=== PATIENT | male | born 1985 | race African-American/Black ===

== ENCOUNTER 2018-09-07 18:27 | Emergency (ER) | END 2018-09-07 19:33 | disposition home or self-care (01) ==

== ENCOUNTER 2018-10-05 01:27 | Emergency (ER) | END 2018-10-05 02:05 | disposition home or self-care (01) ==

== ENCOUNTER 2018-11-05 06:09 | Observation (INO) | payer SELFPAY ==
[~2018-11-05] VITALS: Ht 157.5 cm; Wt 58.9 kg
[~2018-11-05 06:09] MED LIST: LEVE100018 PO; LEVE500S8 PO; MED4DP PO
[2018-11-05] MEDS ORDERED: SOD CHLORIDE 0.9% 1,000 ML IV STA (06:17)
[2018-11-05] MEDS ORDERED: LEVETIRACETAM 1000 MG (PMX) 100 ML IVPB STA (06:17)
--- NOTE | 2018-11-05 06:47 | ERD ---
ER Documentation Chief Complaint Chief Complaint JUAN EPPERSON from home,8 sz lasted 1.5 to 2 mins apart per roommate report,LUZ MEDEIROS This is a 33-year-old male with a past medical history of brain tumor status post craniotomy and surgical resection, seizure disorder on Keppra 1000 mg twice daily who is presenting for multiple seizure episodes this morning. The patient's first seizure began at 2 AM. He has had 8 total episodes since 2 AM, lasting approximately 1.5-2 minutes before resolving. The patient reports frequent seizure episodes, approximately once a week. Typically, after taking Keppra, the patient does not have any subsequent seizures. After the first episode, the patient's roommate gave him a Keppra tablet. However, this morning, the patient's seizures continued. The patient's roommate called the patient's mother, who is reportedly a physician, and was told to bring the patient to the emergency department. The patient's last seizure was approximately 30 minutes prior to arrival to the emergency department. He is currently alert and oriented x4. He does endorse a mild frontal headache, which is typical after his seizures. He denies any photophobia or phonophobia. He denies any blurry or double vision. He denies any focal deficits. He denies any weakness or numbness or tingling to the face or extremities. He reports compliance with his seizure medications. However, upon review of his medical record, it appears that he has received his last 2 prescriptions of Keppra from the emergency department. It is unclear when he last followed up with his neurologist. The patient's last CT scan at this facility was in 2016. The patient denies feeling sick recently. The patient denies fever or chills. The patient does not endorse neck or back pain. The patient denies lightheadedness or dizziness. The patient has had no chest pain or trouble breathing. The patient denies nausea or vomiting. The patient denies abdominal pain. The patient denies changes to bowel movements or urination. ROS All systems reviewed and are negative except as per history of present illness. Medications Home Meds Reported Medications Levetiracetam* (Keppra*) 1,000 Mg Tablet, 1000 MG PO BID, TAB 11/05/18 Discontinued Scripts Levetiracetam* (Keppra*) 1,000 Mg Tablet, 1000 MG PO BID for 30 Days, TAB Prov:VIDHYA MERA 10/05/18 Levetiracetam* (Keppra*) 1,000 Mg Tablet, 1000 MG PO BID, #60 TAB Prov:KANCHAN VALDEZ PA-C 09/07/18 Methylprednisolone* (Medrol* DOSE PACK) 4 Mg/Dose-Pack Tab.ds.pk, 4 MG PO . DIRECTED for 14 Days, PACKET Prov:ESHA MAO MD 10/04/16 Levetiracetam* (Keppra*) 500 Mg/5 Ml Solution, 1000 MG PO BID for 30 Days, BOTTLE Prov:ESHA MAO MD 10/04/16 Allergies Allergies: Coded Allergies: No Known Allergy (Unverified , 09/22/16) PMhx/Soc History of Surgery: Yes (craniotomy) Anesthesia Reaction: No Hx Neurological Disorder: Yes (Brain tumor, seizure d/o) Hx Respiratory Disorders: No Hx Cardiac Disorders: No Hx Psychiatric Problems: No Hx Miscellaneous Medical Probl: No Hx Alcohol Use: No Hx Substance Use: No Hx Tobacco Use: No FmHx Family History: No diabetes Physical Exam Vitals Vital Signs Date Temp Pulse Resp B/P (MAP) Pulse Ox O2 O2 Flow FiO2 Time Delivery Rate 11/05/18 70 18 121/77 99 Room Air 06:20 (92) 11/05/18 99.4 93 18 130/67 97 06:14 (88) Physical Exam Const: No apparent distress, well-developed, well-nourished Head: Normocephalic, Atraumatic. Healed craniotomy scar. Eyes: Normal Conjunctiva. Extraocular movements intact. Pupils equal, round and reactive to light ENT: Normal External Ears, Nose and Mouth. Neck: Full range of motion. No meningismus. Resp: Clear to auscultation bilaterally, No wheezes, rales or rhonchi Cardio: Regular rate and rhythm. No murmurs, rubs or gallops Abd: Soft, non tender, non distended. Normal bowel sounds Skin: No petechiae or rashes Back: No midline tenderness. No CVA tenderness Ext: No cyanosis, or edema Neur: Awake and alert, oriented 4. Cranial nerves intact. No facial droop. Normal strength, sensation and coordination. Psych: Normal Mood and Affect Result Diagram: 11/05/18 0633 11/05/18 0633 Results 24 hrs Laboratory Tests Test 11/05/18 06:24 11/05/18 06:33 11/05/18 06:44 Bedside Glucose 98 mg/dL White Blood Count 6.5 10^3/ul Red Blood Count 5.20 10^6/ul Hemoglobin 14.6 g/dl Hematocrit 43.2 % Mean Corpuscular Volume 83.1 fl Mean Corpuscular Hemoglobin 28.1 pg Mean Corpuscular 33.8 g/dl Hemoglobin Concent Red Cell Distribution Width 11.4 % Platelet Count 202 10^3/UL Mean Platelet Volume 9.3 fl Immature Granulocytes % 0.200 % Neutrophils % 82.7 % Lymphocytes % 6.4 % Monocytes % 10.4 % Eosinophils % 0.0 % Basophils % 0.3 % Nucleated Red Blood Cells % 0.0 /100WBC Immature Granulocytes # 0.010 10^3/ul Neutrophils # 5.4 10^3/ul Lymphocytes # 0.4 10^3/ul Monocytes # 0.7 10^3/ul Eosinophils # 0.0 10^3/ul Basophils # 0.0 10^3/ul Nucleated Red Blood Cells # 0.0 10^3/ul Prothrombin Time 13.6 Sec Prothrombin Time Ratio 1.1 INR International 1.03 Normalized Ratio Sodium Level 139 mmol/L Potassium Level 4.0 mmol/L Chloride Level 104 mmol/L Carbon Dioxide Level 24 mmol/L Anion Gap 11 Blood Urea Nitrogen 10 mg/dl Creatinine 1.10 mg/dl Est Glomerular Filtrat > 60 mL/min Rate mL/min Glucose Level 104 mg/dl Calcium Level 9.9 mg/dl Total Bilirubin 0.9 mg/dl Direct Bilirubin 0.00 mg/dl Indirect Bilirubin 0.9 mg/dl Aspartate Amino Transf (AST/SGOT) 28 IU/L Alanine 28 IU/L Aminotransferase (ALT/SGPT) Alkaline Phosphatase 104 IU/L Total Protein 7.4 g/dl Albumin 4.4 g/dl Globulin 3.00 g/dl Albumin/Globulin Ratio 1.46 Ethyl Alcohol Level < 10.0 mg/dl Urine Color YELLOW Urine Clarity SLIGHTLY CLOUDY Urine pH 5.0 Urine Specific [place] 1.019 Urine Ketones NEGATIVE mg/dL Urine Nitrite NEGATIVE mg/dL Urine Bilirubin NEGATIVE mg/dL Urine Urobilinogen NEGATIVE mg/dL Urine Leukocyte Esterase NEGATIVE Geovanni/ul Urine Microscopic RBC 0 /HPF Urine Microscopic WBC 1 /HPF Urine Bacteria FEW /HPF Urine Mucus FEW /HPF Urine Hemoglobin NEGATIVE mg/dL Urine Glucose NEGATIVE mg/dL Urine Total Protein 1+ mg/dl Urine Opiates Screen Negative Urine Barbiturates Negative Urine Amphetamines Screen Negative Urine Benzodiazepines Screen Negative Urine Cocaine Screen Negative Urine Cannabinoids Positive Current Medications Medications Dose Sig/Tori Start Time Status Last (Trade) Ordered Route PRN Stop Time Admin Dose Reason Admin Sodium 1,000 ml @ Q1H STAT 11/05/18 DC 11/05/18 Chloride 1,000 mls/hr IV 06:17 11/05/18 06:58 07:16 100 ml @ ONCE STAT 11/05/18 DC 11/05/18 Levetiracetam 400 mls/hr IVPB 06:17 11/05/18 06:57 06:31 Ondansetron 4 mg ER BRIDGE 11/05/18 HCl (Zofran PRN IV 08:00 11/06/18 Inj) NAUSEA AND/OR 07:59 VOMITING 650 mg ER BRIDGE 11/05/18 Acetaminophen PRN PO MILD 08:00 11/06/18 (Tylenol PAIN(1-3)OR 07:59 Tab) ELEVATED TEMP Procedures/MDM MDM The patient's presentation warrants further investigation. Previous medical records, if available, were reviewed. LABS The patient's laboratory testing was obtained and reviewed. No emergent treatment was required unless described below. CBC: No E/o of systemic infection or severe anemia or thrombocytopenia CMP: No E/o severe acidosis or alkalosis or renal failure or liver disease or diabetic ketoacidosis PT/INR: No E/o significant coagulopathy Urine: No E/o acute infection or hematuria Tox: No E/o alcohol abuse. E/o Marijuana abuse. No other E/o illicit drug use. IMAGING Imaging and Radiology interpretation reviewed. CT Head Postoperative changes again includes previous bifrontal craniotomy. There is u nderlying bilateral frontal lobe encephalomalacia that is now more symmetric in appearance, aside from a region of apparent sparing involving the anterior superior right frontal lobe that may be residual normal parenchyma given the absence of associated edema or mass effect, rather than on the basis of residual/recurrent neoplasm. Comparison to more recent prior exams could be useful otherwise, further evaluation could include consideration for MRI without and with contrast, on a follow-up basis. No acute intracranial hemorrhage or recent territorial infarct. Generalized atrophy. Periventricular white matter hypodensity that is preferentially within both frontal lobes, most likely on a post treatment basis. Bilateral paranasal sinus disease, some of which is postsurgical, and which appears increased in the left frontal sinus with new left sphenoid sinus air-fluid level present. Electronically viewed and signed by Physician Ebenezer on 11/05/2018 07:34 CXR COMPARISON: CR CHEST 09/22/2016 FINDINGS: No focal airspace opacification, pleural effusion or pneumothorax is seen. The cardiomediastinal silhouette is within normal limits for size. The osseous structures are unremarkable. IMPRESSION: Unremarkable chest x-ray. Electronically viewed and signed by .Ramona Antony MD, on 11/05/2018 07:11 TREATMENT/DISPOSITION The patient presents for multiple recurrent seizure episodes, totaling 8 this morning. This is atypical for him. He does have a seizure disorder and does get frequent seizures, approximately 1/week. However, he does not typically have multiple seizures back to back over a short period of time. The patient also presents with a headache, typical after his seizure episodes. Differential diagnosis includes migraine, tension headache, cluster headache. The patient has no focal deficits. The neurologic exam is reassuring. I have decreased suspicion for cerebral ischemia. There was no trauma or injury. There is no personal or family history of cerebral aneurysm. This is not the worst headache of the patient's life. It was not acutely severe. It is been progressive in nature. The patient CT scan reveals encephalomalacia. I have decreased suspicion for SAH or other ICH. I have low suspicion for temporal arteritis, cavernous venous thrombosis, subdural hematoma, epidural hematoma, meningitis. The patient has a reassuring physical exam. The patient is not clinically orthostatic. The patient is not dizzy. I have decreased suspicion for vertigo. The patient has no signs of emergent or symptomatic anemia. The patient does not have any emergent electrolyte or metabolic emergencies. I have decrease suspicion for a thyroid disorder. The patient is not toxic appearing. I have decreased suspicion for an infectious etiology of symptoms. I have low suspicion for a cardiopulmonary process. The patient was treated with IV fluids and Keppra. I anticipate that the patient's symptoms have currently resolved. However, giv en the frequent recurrence of his seizures today, I feel that the patient requires admission for further evaluation and management. The patient will be admitted to panel in accordance with the patient's insurance. The patient was accepted by Dr. Vila at 0745 AM. Disclaimer: Inadvertent spelling and grammatical errors are likely due to EHR/dictation software use and do not reflect on the overall quality of patient care. Note that the electronic time recorded on this note does not necessarily reflect the actual time of the patient encounter. Departure Diagnosis: Primary Impression: Breakthrough seizure Additional Impressions: History of seizure disorder Headache Headache type: unspecified Headache chronicity pattern: acute headache Intractability: not intractable Qualified Codes: R51 - Headache Marijuana abuse Condition: CHAD Rodriguez MD Nov 05, 2018 06:45
[2018-11-05] MEDS ORDERED: LEVE100018 PO (07:27)
[2018-11-05] MEDS ORDERED: ACETAMINOPHEN 325 MG TAB PO PRN ×2 (08:00→10:00)
[2018-11-05] MEDS ORDERED: ONDANSETRON 4 MG INJ IV PRN ×2 (08:00→10:00)
[2018-11-05] MEDS: SOD CHLORIDE 0.9% 1,000 ML IV SCH ×2 (09:59→23:48)
[2018-11-05] MEDS ORDERED: NACL 0.9% 3 ML SYG IV SCH (10:00)
--- NOTE | 2018-11-05 10:02 | HP ---
Date/Time of Note Date/Time of Note DATE: 11/05/18 TIME: 09:56 Assessment/Plan VTE Prophylaxis SCD applied (from Nsg): Yes Pharmacological prophylaxis: NA/contraindicated Pharm contraindication: low risk/ambulating Lines/Catheters IV Catheter Type (from Nrsg): Sal[place] Lock Assessment/Plan Hospital Course SUBJECTIVE: Seen and evaluated patient in room ER 15. Currently no acute distress. No fevers. No seizures since admission. OBJECTIVE: Vital signs-see below PHYSICAL EXAM: Constitutional: Well-developed, adequately built, lying in bed comfortably. Psych: nl mood/affect, no complaints Head: Old craniotomy scar. atraumatic, normocephalic Eyes: nl conjunctiva, nl sclera ENMT: mucosa pink and moist, nl external ears & nose Neck: non-tender, supple Respiratory: clear to auscultation, normal air movement Cardiovascular: nl pulses, regular rate and rhythm Gastrointestinal: non-tender, soft, bowel sounds active in all 4 quadrants. Musculoskeletal/extremities: nl extremities to inspection, motor strength equal bilaterally, no focal deficit. Normal pulses,no cyanosis, no edema. Neurological: Alert oriented 3,nl speech, nl strength Skin: nl turgor. ASSESSMENT/PLAN: 33-year-old male with a history of brain tumor, status post resection 2016, seizure disorders on Keppra,1 day duration of flulike symptoms, presented with multiple episodes of witnessed seizures started at 2:00 this mo rning. 1. Breakthrough seizures -Culprit of breakthrough seizures likely secondary to underlying possible URI, ingestion of cannabinoids, possible noncompliance with seizure medications vs other. -Admit as inpatient -IV Keppra, PRN Ativan for breakthrough seizures -MRI brain -Neurology consult -Neurovascular checks, seizure precautions 2. History of brain tumor, status post resection. 3. Flulike symptoms,possible URI -Currently stable. However, will obtain influenza a and B swab as patient also presenting with seizure which can be contributed by possible underlying viral infection. -Supportive care 4. Positive drug screen for cannabinoids. -Cessation advised DVT prophylaxis: SCDs PUD prophylaxis: Not indicated CODE STATUS: Full code Diet: Regular. Rest of the management depend on hospital course. Approximately 60 m spent on this history and physical. Patient was seen in collaboration with Dr. Guzman. Result Diagram: 11/05/18 0633 1/2/19 0633 Results 24hrs Laboratory Tests Test 11/05/18 06:24 11/05/18 06:33 11/05/18 06:44 Bedside Glucose 98 White Blood Count 6.5 # Red Blood Count 5.20 Hemoglobin 14.6 Hematocrit 43.2 Mean Corpuscular Volume 83.1 Mean Corpuscular Hemoglobin 28.1 L Mean Corpuscular 33.8 Hemoglobin Concent Red Cell Distribution Width 11.4 L Platelet Count 202 Mean Platelet Volume 9.3 Immature Granulocytes % 0.200 Neutrophils % 82.7 H Lymphocytes % 6.4 L Monocytes % 10.4 Eosinophils % 0.0 Basophils % 0.3 Nucleated Red Blood Cells % 0.0 Immature Granulocytes # 0.010 Neutrophils # 5.4 Lymphocytes # 0.4 L Monocytes # 0.7 Eosinophils # 0.0 Basophils # 0.0 Nucleated Red Blood Cells # 0.0 Prothrombin Time 13.6 Prothrombin Time Ratio 1.1 INR International 1.03 Normalized Ratio Sodium Level 139 Potassium Level 4.0 Chloride Level 104 Carbon Dioxide Level 24 Anion Gap 11 Blood Urea Nitrogen 10 Creatinine 1.10 Est Glomerular Filtrat > 60 Rate mL/min Glucose Level 104 Calcium Level 9.9 Total Bilirubin 0.9 Direct Bilirubin 0.00 Indirect Bilirubin 0.9 Aspartate Amino 28 Transf (AST/SGOT) Alanine 28 Aminotransferase (ALT/SGPT) Alkaline Phosphatase 104 Total Protein 7.4 Albumin 4.4 Globulin 3.00 Albumin/Globulin Ratio 1.46 Ethyl Alcohol Level < 10.0 H Urine Color YELLOW Urine Clarity SLIGHTLY CLOUDY A Urine pH 5.0 Urine Specific [place] 1.019 Urine Ketones NEGATIVE Urine Nitrite NEGATIVE Urine Bilirubin NEGATIVE Urine Urobilinogen NEGATIVE Urine Leukocyte Esterase NEGATIVE Urine Microscopic RBC 0 Urine Microscopic WBC 1 Urine Bacteria FEW A Urine Mucus FEW A Urine Hemoglobin NEGATIVE Urine Glucose NEGATIVE Urine Total Protein 1+ H Urine Opiates Screen Negative Urine Barbiturates Negative Urine Amphetamines Screen Negative Urine Benzodiazepines Screen Negative Urine Cocaine Screen Negative Urine Cannabinoids Positive HPI/ROS Admit Date/Time Admit Date/Time Hx of Present Illness 33-year-old -Russian male with a history of brain tumor, status post resection 2015, seizure disorders, was brought in by his friend for multiple episodes of witnessed seizures lasting around 2 minutes started at 2:00 through 6:00 this morning. Patient's roommate gave him 1 g Keppra, however seizure persisted. According to the history, his seizure disorders were pretty much controlled since the surgery. Patient also had "flulike" symptoms including subjective fevers and nasal congestion started yesterday. He denied chest pain, palpitation, shortness of breath, nausea, vomiting, abdominal pain, diarrhea, loss of consciousness, or any focal deficit. In ER, labs grossly unremarkable except for toxicology positive for cannabinoids. In ER, patient was given a gram of IV Keppra. Vital signs stable. Brain CT showed generalized atrophy with no acute intracranial hemorrhage or infarct. Patient did not have any seizure in the emergency room. ROS A 12 point review of system was assessed and is negative other than what is mentioned in the HPI. PMH/Family/Social Past Medical History See HPI Medications Current Medications Ondansetron HCl (Zofran Inj) 4 mg ER BRIDGE PRN IV NAUSEA AND/OR VOMITING; Star t 11/05/18 at 08:00; Stop 11/06/18 at 07:59 Acetaminophen (Tylenol Tab) 650 mg ER BRIDGE PRN PO MILD PAIN(1-3)OR ELEVATED TEMP; Start 11/05/18 at 08:00; Stop 11/06/18 at 07:59 Coded Allergies: No Known Allergy (Unverified , 09/22/16) Past Surgical History See HPI Family History Significant Family History: no pertinent family hx Social History Smokes marijuana. Social drinking. Otherwise no history of IV drug abuse, nicotine abuse. Smoking Status: Never smoker Exam/Review of Systems Vital Signs Vitals Vital Signs Date Temp Pulse Resp B/P (MAP) Pulse Ox O2 O2 Flow FiO2 Time Delivery Rate 11/05/18 71 18 113/67 99 Room Air 08:28 (82) 11/05/18 99.4 06:14 ROSALVA MCDONOUGH NP Nov 05, 2018 10:02
--- NOTE | 2018-11-05 10:21 | CONS ---
Assessment/Plan Assessment/Plan Hospital Course 33 M c/ reported Hx of meningioma s/p resection in 2016, c/b epilepsy, who presents for evaluation following a cluster of seizures. He reportedly noted URI Sx recently, which likely lowered his seizure threshold. P: Await MRI brain Increase Keppra to 1.5 g bid, and add Trileptal 300mg bid Ativan iv prn prolonged seizure (> 5 min) or cluster (> 2 in 24 hr) Other management per primary Will follow clinically Result Diagram: 11/05/18 0633 11/05/18 0633 Results 24hrs Laboratory Tests Test 11/05/18 06:24 11/05/18 06:33 11/05/18 06:44 Bedside Glucose 98 White Blood Count 6.5 # Red Blood Count 5.20 Hemoglobin 14.6 Hematocrit 43.2 Mean Corpuscular Volume 83.1 Mean Corpuscular Hemoglobin 28.1 L Mean Corpuscular 33.8 Hemoglobin Concent Red Cell Distribution Width 11.4 L Platelet Count 202 Mean Platelet Volume 9.3 Immature Granulocytes % 0.200 Neutrophils % 82.7 H Lymphocytes % 6.4 L Monocytes % 10.4 Eosinophils % 0.0 Basophils % 0.3 Nucleated Red Blood Cells % 0.0 Immature Granulocytes # 0.010 Neutrophils # 5.4 Lymphocytes # 0.4 L Monocytes # 0.7 Eosinophils # 0.0 Basophils # 0.0 Nucleated Red Blood Cells # 0.0 Prothrombin Time 13.6 Prothrombin Time Ratio 1.1 INR International 1.03 Normalized Ratio Sodium Level 139 Potassium Level 4.0 Chloride Level 104 Carbon Dioxide Level 24 Anion Gap 11 Blood Urea Nitrogen 10 Creatinine 1.10 Est Glomerular Filtrat > 60 Rate mL/min Glucose Level 104 Calcium Level 9.9 Total Bilirubin 0.9 Direct Bilirubin 0.00 Indirect Bilirubin 0.9 Aspartate Amino 28 Transf (AST/SGOT) Alanine 28 Aminotransferase (ALT/SGPT) Alkaline Phosphatase 104 Total Protein 7.4 Albumin 4.4 Globulin 3.00 Albumin/Globulin Ratio 1.46 Ethyl Alcohol Level < 10.0 H Urine Color YELLOW Urine Clarity SLIGHTLY CLOUDY A Urine pH 5.0 Urine Specific [place] 1.019 Urine Ketones NEGATIVE Urine Nitrite NEGATIVE Urine Bilirubin NEGATIVE Urine Urobilinogen NEGATIVE Urine Leukocyte Esterase NEGATIVE Urine Microscopic RBC 0 Urine Microscopic WBC 1 Urine Bacteria FEW A Urine Mucus FEW A Urine Hemoglobin NEGATIVE Urine Glucose NEGATIVE Urine Total Protein 1+ H Urine Opiates Screen Negative Urine Barbiturates Negative Urine Amphetamines Screen Negative Urine Benzodiazepines Screen Negative Urine Cocaine Screen Negative Urine Cannabinoids Positive Consultation Date/Type/Reason Admit Date/Time Type of Consult Neurology Reason for Consultation epilepsy Requesting Provider: ROSALVA MCDONOUGH NP Date/Time of Note DATE: 11/05/18 TIME: 10:21 Hx of Present Illness 33-year-old -[place] male with a history of brain tumor, status post resection in 2016, seizure disorder, was brought in by his friend for multiple episodes of witnessed seizures lasting around 2 minutes started at 2:00 through 6:00 this morning. Patient's roommate gave him 1 g Keppra, however seizure persisted. According to the history, his seizure disorders were pretty much controlled since the surgery. Patient also had "flulike" symptoms including subjective fevers and nasal congestion started yesterday. He denied chest pain, palpitation, shortness of breath, nausea, vomiting, abdominal pain, diarrhea, loss of consciousness, or any focal deficit. In ER, labs grossly unremarkable except for toxicology positive for cannabinoids. In ER, patient was given a gram of IV Keppra. Vital signs stable. Brain CT showed generalized atrophy with no acute intracranial hemorrhage or infarct. Patient did not have any seizure in the emergency room. 12 PT ROS ow neg Exam/Review of Systems Vital Signs Vitals Vital Signs Date Temp Pulse Resp B/P (MAP) Pulse Ox O2 O2 Flow FiO2 Time Delivery Rate 11/05/18 62 18 109/63 99 Room Air 10:03 (78) 11/05/18 99.4 06:14 Exam PE: Gen Appearance: No Apparent Distress HEENT: Normocephalic Cardiovascular: Regular rate Lungs: Clear bilaterally Abdomen: Soft Extremities: Dry NE: The patient was alert and oriented. Language was normal. Fund of knowledge was normal. Pupils were equal and reactive to light. There was no afferent pupillary defect. Visual petit were normal. Funduscopic examination was limited. Extra-ocular movements were full. Ptosis was absent. There was no nystagmus. Facial sensation was normal. Face was symmetric with normal strength. Hearing was intact. Palate movements were normal. Neck strength was normal. There was normal tongue bulk and speed of movement. Tone was normal. Muscle bulk was normal. I did not see fasciculations. Arms and legs were strong. Vibration sensation was normal. Temperature and pinprick sensation was normal. Rapid alternating movements were normal. There was no dysmetria. There was no intention tremor. Gait was deferred due to bedrest. Arm and leg reflexes were 2+ and symmetric. Harris's sign was absent. Plantar responses were flexor. Medications Medications Current Medications Ondansetron HCl (Zofran Inj) 4 mg ER BRIDGE PRN IV NAUSEA AND/OR VOMITING; Start 11/05/18 at 08:00; Stop 11/06/18 at 07:59 Acetaminophen (Tylenol Tab) 650 mg ER BRIDGE PRN PO MILD PAIN(1-3)OR ELEVATED TEMP; Start 11/05/18 at 08:00; Stop 11/06/18 at 07:59 Sodium Chloride 1,000 ml @ 75 mls/hr [id number] IV Last administered on 11/05/18at 09:59; Admin Dose 75 MLS/HR; Start 11/05/18 at 09:45 IV Flush (NS 3 ml) 3 ml PER PROTOCOL IV ; Start 11/05/18 at 10:00 Ondansetron HCl (Zofran Inj) 4 mg Q6H PRN IV NAUSEA AND/OR VOMITING; Start 11/05/18 at 10:00 Acetaminophen (Tylenol Tab) 650 mg Q6H PRN PO PAIN LEVEL 1-3 OR FEVER; Start 11/05/18 at 10:00 Levetiracetam 100 ml @ 400 mls/hr Q12 IVPB ; Start 11/05/18 at 21:00 Lorazepam (Ativan) 2 mg Q2 PRN IV seizure; Start 11/05/18 at 10:00 Past Medical History reviewed Medications Current Medications Ondansetron HCl (Zofran Inj) 4 mg ER BRIDGE PRN IV NAUSEA AND/OR VOMITING; Start 11/05/18 at 08:00; Stop 11/06/18 at 07:59 Acetaminophen (Tylenol Tab) 650 mg ER BRIDGE PRN PO MILD PAIN(1-3)OR ELEVATED TEMP; Start 11/05/18 at 08:00; Stop 11/06/18 at 07:59 Sodium Chloride 1,000 ml @ 75 mls/hr [id number] IV Last administered on 11/05/18at 09:59; Admin Dose 75 MLS/HR; Start 11/05/18 at 09:45 IV Flush (NS 3 ml) 3 ml PER PROTOCOL IV ; Start 11/05/18 at 10:00 Ondansetron HCl (Zofran Inj) 4 mg Q6H PRN IV NAUSEA AND/OR VOMITING; Start 11/05/18 at 10:00 Acetaminophen (Tylenol Tab) 650 mg Q6H PRN PO PAIN LEVEL 1-3 OR FEVER; Start 11/05/18 at 10:00 Levetiracetam 100 ml @ 400 mls/hr Q12 IVPB ; Start 11/05/18 at 21:00 Lorazepam (Ativan) 2 mg Q2 PRN IV seizure; Start 11/05/18 at 10:00 Allergies: Coded Allergies: No Known Allergy (Unverified , 09/22/16) Past Surgical History reviewed Social History Smoking Status: Never smoker JL PHELPS Nov 05, 2018 10:21
[2018-11-05 11:53] VITALS: BP 108/75; PULSE 53; RESP 18
[2018-11-05 11:58] VITALS: PULSE 50
[2018-11-05 12:00] VITALS: Ht 157.5 cm; Wt 58.9 kg
[2018-11-05 12:27] VITALS: PULSE 75
[2018-11-05] MEDS: OXCARBAZEPINE 300 MG TAB PO SCH ×2 (15:02→22:15)
[2018-11-05] MEDS: LORAZEPAM 4 MG/ML VIAL IV PRN ×2 (15:07→18:03)
[2018-11-05 15:12] VITALS: BP 108/62; PULSE 90; RESP 18
--- NOTE | 2018-11-05 15:24 | NUR ---
SEIZURE ACTIVITY/ MD COMMUNICATION PATIENT HAD TONIC-CLONIC SEIZURE, WITNESSED BY THIS RN, THAT LASTED APPROXIMATELY 20 SECONDS. NO INJURIES. ADMINISTERED ATIVAN PRN. NOTIFIED DR. CARRERA AND DAVY MCDONOUGH. ALSO, LEFT MESSAGE FOR DR. PHELPS. WILL CONTINUE TO MONITOR PATIENT CLOSELY, AND INTERVENE NECESSARY.
[2018-11-05 16:29] VITALS: PULSE 86
--- NOTE | 2018-11-05 16:59 | NUR ---
PT OFF UNIT/ MRI PATIENT TAKEN OFF UNIT BY CONCRETE PAVING MACHINE OPERATOR AND TRANSPORT STAFF TO MRI. Addendum: 11/05/18 at 1752 by BARBI SAVAGE RN PATIENT ARRIVED BACK TO UNIT. Addendum: 11/05/18 at 1855 by BARBI SAVAGE RN PER PATIENT AND CONCRETE PAVING MACHINE OPERATOR, SEIZURE NOTED DURING MRI. INCONTINENT EPISODE OF URINE. ATIVAN ADMINISTERED UPON ARRIVAL TO UNIT.
--- NOTE | 2018-11-05 18:15 | NUR ---
END OF SHIFT SUMMARY Patient awake and alert, and able to follow commands. Patient afebrile. Rhythm as charted. Room air. Passed [place]; regular diet. No new development of wounds. Patient self-turns. Comfort and safety measures/ fall precautions in place. One seizure activity noted; witnessed by this RN. See note. MRI performed. Patient updated on status, and plan of care. All of patient's needs met. Will continue to monitor, and endorse care to [facility] former arbor end RN.
[2018-11-05 20:00] VITALS: BP 119/69; PULSE 89; PULSE 91; RESP 18
[2018-11-05] MEDS ORDERED: LEVETIRACETAM 1000 MG (PMX) 100 ML IVPB SCH (21:00)
[2018-11-05] MEDS: LEVETIRACETAM 750 MG TAB PO SCH (21:21)
[2018-11-06] VITALS (10 sets, daily range): BP systolic 117–134; BP diastolic 61–78; PULSE 63–100; RESP 18
--- NOTE | 2018-11-06 07:56 | NUR ---
Pt a/a/o/x4, need reinforcement to stay in bed. VS stable, afebrile , NO episode seizure. Continue care plan
[2018-11-06] MEDS: SOD CHLORIDE 0.9% 1,000 ML IV SCH (08:42)
[2018-11-06] MEDS: OXCARBAZEPINE 300 MG TAB PO SCH ×2 (08:42→20:42)
[2018-11-06] MEDS: LEVETIRACETAM 750 MG TAB PO SCH ×2 (08:42→20:42)
--- NOTE | 2018-11-06 14:20 | PN ---
Date/Time of Note Date/Time of Note DATE: 11/06/18 TIME: 14:16 Assessment/Plan VTE Prophylaxis Risk score (from Ns)>0 risk: 1 SCD applied (from Ns): Yes Pharmacological prophylaxis: NA/contraindicated Pharm contraindication: low risk/ambulating Lines/Catheters IV [facility] Saline Lock Urinary Cath still in place: No Assessment/Plan Hospital Course SUBJECTIVE: Patient had last reported seizure activity yesterday 3 PM. After that, no episodes. OBJECTIVE: Vital signs-see below PHYSICAL EXAM: Constitutional: Well-developed, adequately built, lying in bed comfortably. Psych: nl mood/affect, no complaints Head: Old craniotomy scar. atraumatic, normocephalic Eyes: nl conjunctiva, nl sclera ENMT: mucosa pink and moist, nl external ears & nose Neck: non-tender, supple Respiratory: clear to auscultation, normal air movement Cardiovascular: nl pulses, regular rate and rhythm Gastrointestinal: non-tender, soft, bowel sounds active in all 4 quadrants. Musculoskeletal/extremities: nl extremities to inspection, motor strength equal bilaterally, no focal deficit. Normal pulses,no cyanosis, no edema. Neurological: Alert oriented 3,nl speech, nl strength Skin: nl turgor. ASSESSMENT/PLAN: 33-year-old male with a history of brain tumor, status post resection 2015, seizure disorders on Keppra,1 day duration of flulike symptoms, presented with multiple episodes of witnessed seizures started at 2:00 this morning. 1. Breakthrough seizures -Culprit of breakthrough seizures likely secondary to underlying possible URI, ingestion of cannabinoids, possible noncompliance with seizure medications vs other. -Patient neurology evaluation and Keppra dose has been increased to 1500 mg with addition of Trileptal. -Last reported seizure 3 PM 11/05/2018, no further seizure activities. -Neurovascular checks, seizure precautions 2. History of brain tumor, status post resection. -MRI reviewed and no evidence of recurrent mass. MRI consistent with postictal state. 3. URI -Symptoms resolved. Flu swabs negative. -cont supportive care 4. Positive drug screen for cannabinoids. -Cessation advised DVT prophylaxis: SCDs PUD prophylaxis: Not indicated CODE STATUS: Full code Diet: Regular. Disposition: Continue telemetry. Continue seizure precaution. If no further seizure activity over the next 24 hours, likely DC planning in a.m. Patient was seen in collaboration with Dr. Guzman. Result Diagram: 11/06/18 0543 11/06/18 0542 Results 24hrs Laboratory Tests Test 11/06/18 05:42 11/06/18 05:43 Sodium Level 141 Potassium Level 4.0 Chloride Level 106 Carbon Dioxide Level 26 Anion Gap 9 Blood Urea Nitrogen 10 Creatinine 0.81 Est Glomerular Filtrat Rate mL/min > 60 Glucose Level 110 Calcium Level 8.9 Phosphorus Level 3.4 Magnesium Level 2.0 Total Bilirubin 0.8 Direct Bilirubin 0.00 Indirect Bilirubin 0.8 Aspartate Amino Transf (AST/SGOT) 17 Alanine Aminotransferase (ALT/SGPT) 29 Alkaline Phosphatase 74 Total Protein 5.9 #L Albumin 3.5 Globulin 2.40 Albumin/Globulin Ratio 1.45 Thyroid Stimulating Hormone (TSH) 1.140 White Blood Count 4.0 #L Red Blood Count 4.31 L Hemoglobin 12.3 L Hematocrit 36.0 L Mean Corpuscular Volume 83.5 Mean Corpuscular Hemoglobin 28.5 L Mean Corpuscular Hemoglobin Concent 34.2 Red Cell Distribution Width 11.4 L Platelet Count 180 Mean Platelet Volume 9.1 Immature Granulocytes % 0.200 Neutrophils % 55.7 Lymphocytes % 23.3 Monocytes % 18.6 H Eosinophils % 1.5 Basophils % 0.7 Nucleated Red Blood Cells % 0.0 Immature Granulocytes # 0.010 Neutrophils # 2.2 Lymphocytes # 0.9 Monocytes # 0.8 Eosinophils # 0.1 Basophils # 0.0 Nucleated Red Blood Cells # 0.0 Exam/Review of Systems Vital Signs Vitals Vital Signs Date Temp Pulse Resp B/P (MAP) Pulse Ox O2 O2 Flow FiO2 Time Delivery Rate 11/06/18 Room Air 12:13 11/06/18 71 12:00 11/06/18 98.5 18 128/63 98 11:22 (84) Intake and Output 11/05/18 11/05/18 11/06/18 1515:00 23:00 07:00 IntakeIntake Total 1610 ml 465 ml OutputOutput Total 100 ml 0 ml BalanceBalance 1510 ml 465 ml Medications Medications Current Medications Sodium Chloride 1,000 ml @ 75 mls/hr [id number] IV Last administered on 11/06/18at 08:42; Admin Dose 75 MLS/HR; Start 11/05/18 at 09:45 IV Flush (NS 3 ml) 3 ml PER PROTOCOL IV ; Start 11/05/18 at 10:00 Ondansetron HCl (Zofran Inj) 4 mg Q6H PRN IV NAUSEA AND/OR VOMITING; Start 11/05/18 at 10:00 Acetaminophen (Tylenol Tab) 650 mg Q6H PRN PO PAIN LEVEL 1-3 OR FEVER; Start 11/05/18 at 10:00 Lorazepam (Ativan) 2 mg Q2 PRN IV seizure Last administered on 11/05/18at 18:03; Admin Dose 2 MG; Start 11/05/18 at 10:00 Oxcarbazepine (Trileptal) 300 mg BID PO Last administered on 11/06/18at 08:42; Admin Dose 300 MG; Start 11/05/18 at 14:00 Levetiracetam (Keppra) 1,500 mg BID PO Last administered on 11/06/18at 08:42; Admin Dose 1,500 MG; Start 11/05/18 at 21:00 ROSALVA MCDONOUGH NP Nov 06, 2018 14:20
--- NOTE | 2018-11-06 14:31 | CONS ---
Assessment/Plan Assessment/Plan Hospital Course 33 M c/ reported Hx of meningioma s/p resection in 2016, c/b epilepsy, who presents for evaluation following a cluster of seizures. He reportedly noted URI Sx recently, which likely lowered his seizure threshold. MRI brain is consistent w/ post-ictal sequelae.. P: Cont Keppra to 1.5 g bid, and Trileptal 300mg bid Ativan iv prn prolonged seizure (> 5 min) or cluster (> 2 in 24 hr) Other management per primary Will follow clinically Result Diagram: 11/06/18 0543 11/06/18 0542 Results 24hrs Laboratory Tests Test 11/06/18 05:42 11/06/18 05:43 Sodium Level 141 Potassium Level 4.0 Chloride Level 106 Carbon Dioxide Level 26 Anion Gap 9 Blood Urea Nitrogen 10 Creatinine 0.81 Est Glomerular Filtrat Rate mL/min > 60 Glucose Level 110 Calcium Level 8.9 Phosphorus Level 3.4 Magnesium Level 2.0 Total Bilirubin 0.8 Direct Bilirubin 0.00 Indirect Bilirubin 0.8 Aspartate Amino Transf (AST/SGOT) 17 Alanine Aminotransferase (ALT/SGPT) 29 Alkaline Phosphatase 74 Total Protein 5.9 #L Albumin 3.5 Globulin 2.40 Albumin/Globulin Ratio 1.45 Thyroid Stimulating Hormone (TSH) 1.140 White Blood Count 4.0 #L Red Blood Count 4.31 L Hemoglobin 12.3 L Hematocrit 36.0 L Mean Corpuscular Volume 83.5 Mean Corpuscular Hemoglobin 28.5 L Mean Corpuscular Hemoglobin Concent 34.2 Red Cell Distribution Width 11.4 L Platelet Count 180 Mean Platelet Volume 9.1 Immature Granulocytes % 0.200 Neutrophils % 55.7 Lymphocytes % 23.3 Monocytes % 18.6 H Eosinophils % 1.5 Basophils % 0.7 Nucleated Red Blood Cells % 0.0 Immature Granulocytes # 0.010 Neutrophils # 2.2 Lymphocytes # 0.9 Monocytes # 0.8 Eosinophils # 0.1 Basophils # 0.0 Nucleated Red Blood Cells # 0.0 Consultation Date/Type/Reason Admit Date/Time Nov 05, 2018 at 07:53 Type of Consult Neurology Requesting Provider: ROSALVA MCDONOUGH NP Date/Time of Note DATE: 11/06/18 TIME: 14:31 24 HR Interval Summary Free Text/Dictation Continues telemetry monitoring. S/p seizure episode yesterday. Pt states that he feels very tired today. Exam Vital Signs Vitals Vital Signs Date Temp Pulse Resp B/P (MAP) Pulse Ox O2 O2 Flow FiO2 Time Delivery Rate 11/06/18 Room Air 12:13 11/06/18 71 12:00 11/06/18 98.5 18 128/63 98 11:22 (84) Intake and Output 11/05/18 11/05/18 11/06/18 1515:00 23:00 07:00 IntakeIntake Total 1610 ml 465 ml OutputOutput Total 100 ml 0 ml BalanceBalance 1510 ml 465 ml Exam PE: Gen Appearance: No Apparent Distress HEENT: Normocephalic Cardiovascular: Regular rate Lungs: Clear bilaterally Abdomen: Soft Extremities: Dry NE: The patient was lethargic though oriented. Language was normal. Fund of knowledge was normal. Pt was able to follow commands. Pupils were equal and reactive to light. There was no afferent pupillary defect. Visual petit were normal. Funduscopic examination was limited. Extra-ocular movements were full. Ptosis was absent. There was no nystagmus. Facial sensation was normal. Face was symmetric with normal strength. Hearing was intact. Palate movements were normal. Neck strength was normal. There was normal tongue bulk and speed of movement. Tone was normal. Muscle bulk was normal. I did not see fasciculations. Moderate, generalized weakness noted. Vibration sensation was normal. Temperature and pinprick sensation was normal. Rapid alternating movements were normal. There was no dysmetria. There was no intention tremor. Gait was deferred due to bedrest. Arm and leg reflexes were 2+ and symmetric. Harris's sign was absent. Plantar responses were flexor. ZA VERDUGO NP Nov 06, 2018 14:31 JL PHELPS Nov 06, 2018 19:18
--- NOTE | 2018-11-06 18:21 | NUR ---
END OF SHIFT DENIES PAIN, NO APPARENT SEIZURE ACTIVITY DURING THIS SHIFT, MOD DEPENDENT FOR CARE, RESTING C EYES CLOSED FOR MOST OF THE DAY ASIDE FROM MEALS, STABLE FOR HANDOFF
[2018-11-06] MEDS: LORAZEPAM 4 MG/ML VIAL IV PRN (18:44)
[2018-11-07] VITALS (10 sets, daily range): BP systolic 110–125; BP diastolic 61–69; PULSE 52–96; RESP 17–19
[2018-11-07] MEDS: SOD CHLORIDE 0.9% 1,000 ML IV SCH ×2 (01:45→09:04)
--- NOTE | 2018-11-07 06:50 | NUR ---
Pt a/a/ox3, reinforcement need to stay in bed for safety. follow instruction well. No distress, VS stable , afebrile. no seizure episode noted. Continue to monitor.
[2018-11-07] MEDS: OXCARBAZEPINE 300 MG TAB PO SCH ×2 (09:04→20:14)
[2018-11-07] MEDS: LEVETIRACETAM 750 MG TAB PO SCH ×2 (09:04→20:14)
--- NOTE | 2018-11-07 09:08 | PDOCDIS ---
Discharge Instructions CONDITION [id number] Patient Condition: [id number] Stable HOME CARE INSTRUCTIONS: [id number] Diet Instructions: [id number] Regular FOLLOW UP/APPOINTMENTS Follow-up Plan Follow-up with outpatient neurologist in 1 week. Follow-up with primary care physician in 1 week. Abstain from cannabinoids. ROSALVA MCDONOUGH NP Nov 07, 2018 09:08
[2018-11-07] MEDS ORDERED: LEVE750T70 PO (09:10)
[2018-11-07] MEDS ORDERED: OXCA300T41 PO (09:10)
--- NOTE | 2018-11-07 09:17 | DS ---
Date/Time of Note Date/Time of Note DATE: 11/07/18 TIME: 09:13 Discharge Summary Admission/Discharge Info Admit Date/Time Nov 05, 2018 at 07:53 Discharge Date/Time Discharge Diagnosis 1. Breakthrough seizures most likely provoked by underlying upper respiratory infection, ingestion of cannabinoids, possible noncompliance with seizure medications. STABLE. 2. History of brain tumor, status post resection. 3. URI,likely viral.RESOLVED 4. Positive drug screen for cannabinoids. Patient Condition: Stable Consults , neurology Procedures 11/05/2017. MRI brain without contrast IMPRESSION: 1. No acute intracranial abnormality. No intracranial hemorrhage, infarction or hydrocephalous. 2. Extensive postoperative changes from resection of right paramedian frontal lobe/corpus callosum/cingulate gyrus mass lesion, without definite residual mass lesion, though evaluation is limited due to lack of contrast administration. If clinical concern for residual or recurrent mass, MRI with contrast is recommended for further evaluation. 3. Focal area of gyral swelling involving the superior right frontal lobe above the level of the anterior frontal lobe resection measuring 3.6 x 2.6 cm with subtle diffusion restriction in this region. No definite mass lesion is identified. This may be related to gyral swelling status post seizure activity (postictal diffusion restriction), however residual mass is not completely excluded. Post contrast MRI is recommended to exclude underlying mass lesion. 4. Stable postoperative changes from anterior frontal craniotomy with encephalomalacia/resection cavity in the bilateral anterior - inferior frontal lobes and gliosis in the underlying white matter. CT brain without contrast. IMPRESSION: Postoperative changes again includes previous bifrontal craniotomy. There is underlying bilateral frontal lobe encephalomalacia that is now more symmetric in appearance, aside from a region of apparent sparing involving the anterior superior right frontal lobe that may be residual normal parenchyma given the absence of associated edema or mass effect, rather than on the basis of residual/recurrent neoplasm. Comparison to more recent prior exams could be useful otherwise, further evaluation could include consideration for MRI without and with contrast, on a follow-up basis. No acute intracranial hemorrhage or recent territorial infarct. Generalized atrophy. Periventricular white matter hypodensity that is preferentially within both frontal lobes, most likely on a post treatment basis. Bilateral paranasal sinus disease, some of which is postsurgical, and which appears increased in the left frontal sinus with new left sphenoid sinus air- fluid level present. 11/05/2017. Chest x-ray. IMPRESSION: Unremarkable chest x-ray. Hospital Course 33-year-old male with a history of brain tumor, status post resection 2016, seizure disorders on Keppra,1 day duration of flulike symptoms, presented with multiple episodes of witnessed seizures started at 2:00 AM on day of admission. Patient was kept on seizure precaution. He was given loading dose of IV Keppra. Patient was also given IV Ativan. Patient had neurology evaluation. CT and brain unremarkable except for postictal state. There was no evidence of residual mass.Most likely, culprit of breakthrough seizures secondary to underly ing upper respiratory infection, ingestion of cannabinoids, possible noncompliance with seizure medications. Patient was continued on supportive care for URI. He was negative for influenza swabs. Patient had one more episode of witnessed seizure while he was admitted in the hospital lasted for 2- 3 seconds. He was continued on uptitrated dose of Keppra 1500 mg twice daily and Trileptal with neurology recommendations. Patient did well. He did not have any seizure for 36 hours. At this time, his mental status is at baseline. He remained alert and oriented in no acute distress. Labs and vital signs stable. No further signs of URI. Patient is medically stable for discharge with outpatient neurology follow-up. Approximately 60 minutes was spent on coordinating the discharge on this patient. Patient was seen in collaboration with Dr. Caldwell. Home Meds Active Scripts Oxcarbazepine* (Oxcarbazepine*) 300 Mg Tablet, 300 MG PO BID, #60 TAB Prov:ROSALVA MCDONOUGH V. [employer] TECHNICIAN 11/07/18 Levetiracetam* (Keppra*) 750 Mg Tablet, 1500 MG PO BID, #120 TAB Keppra 750 mg tabletX 2 tablet (1500 mg PER DOSE) twice a day. Prov:ROSALVA MCDONOUGH NP 11/07/18 Discontinued Reported Medications Levetiracetam* (Keppra*) 1,000 Mg Tablet, 1000 MG PO BID, TAB 11/05/18 Discontinued Scripts Levetiracetam* (Keppra*) 1,000 Mg Tablet, 1000 MG PO BID for 30 Days, TAB Prov:VIDHYA MERA 10/05/18 Levetiracetam* (Keppra*) 1,000 Mg Tablet, 1000 MG PO BID, #60 TAB Prov:KANCHAN VALDEZ PA-C 09/07/18 Methylprednisolone* (Medrol* DOSE PACK) 4 Mg/Dose-Pack Tab.ds.pk, 4 MG PO . DIRECTED for 14 Days, PACKET Prov:ESHA MAO MD 10/04/16 Levetiracetam* (Keppra*) 500 Mg/5 Ml Solution, 1000 MG PO BID for 30 Days, BOTTLE Prov:ESHA MAO MD 10/04/16 Follow-up Plan Follow-up with outpatient neurologist in 1 week. Follow-up with primary care physician in 1 week. Abstain from cannabinoids. Primary Care Provider Care Physician No Primary Pending Labs Microbiology Date/Time Source Procedure Growth Status 11/06/18 11:05 Nasopharyngeal Influenza Types A,B Direct EIA - Final Complete ROSALVA MCDONOUGH NP Nov 07, 2018 09:17
--- NOTE | 2018-11-07 11:17 | CONS ---
Assessment/Plan Assessment/Plan Hospital Course Hospital Course 33 M c/ reported Hx of meningioma s/p resection in 2016, c/b epilepsy, who presents for evaluation following a cluster of seizures. He reportedly noted URI Sx recently, which likely lowered his seizure threshold. MRI brain is consistent w/ post-ictal sequelae.. P: Cont Keppra 1.5 g bid, and Trileptal 300mg bid for now Ativan iv prn prolonged seizure (> 5 min) or cluster (> 2 in 24 hr) Other management per primary Will follow clinically Result Diagram: 11/06/18 0543 11/06/18 0542 Consultation Date/Type/Reason Admit Date/Time Nov 05, 2018 at 07:53 Type of Consult Neurology Requesting Provider: ROSALVA MCDONOUGH NP Date/Time of Note DATE: 11/07/18 TIME: 11:16 24 HR Interval Summary Free Text/Dictation Continues telemetry monitoring. No seizure events were reported, however pt received ativan yesterday at 1845. Exam Vital Signs Vitals Vital Signs Date Temp Pulse Resp B/P (MAP) Pulse Ox O2 O2 Flow FiO2 Time Delivery Rate 11/07/18 52 08:43 11/07/18 97.5 19 116/68 100 Room Air 07:19 (84) Intake and Output 11/06/18 11/06/18 11/07/18 1515:00 23:00 07:00 IntakeIntake Total 450 ml 200 ml 500 ml OutputOutput Total 400 ml 400 ml BalanceBalance 450 ml -200 ml 100 ml Exam PE: Gen Appearance: No Apparent Distress HEENT: Normocephalic Cardiovascular: Regular rate Lungs: Clear bilaterally Abdomen: Soft Extremities: Dry NE: The patient was lethargic though oriented. Sparsely verbal. Language was normal. Fund of knowledge was normal. Pt was able to follow commands. Pupils were equal and reactive to light. There was no afferent pupillary defect. Visual petit were normal. Funduscopic examination was limited. Extra-ocular movements were full. Ptosis was absent. There was no nystagmus. Facial sensation was normal. Face was symmetric with normal strength. Hearing was intact. Palate movements were normal. Neck strength was normal. There was normal tongue bulk and speed of movement. Tone was normal. Muscle bulk was normal. I did not see fasciculations. Generalized weakness noted. Vibration sensation was normal. Temperature and pinprick sensation was normal. Rapid alternating movements were normal. There was no dysmetria. There was no intention tremor. Gait was deferred due to bedrest. Arm and leg reflexes were 2+ and symmetric. Harris's sign was absent. Plantar responses were flexor. ZA VERDUGO NP Nov 07, 2018 11:17
--- NOTE | 2018-11-07 11:47 | QN ---
Documentation Comment It is noted that patient was given a dose of Ativan at 641. There is no d ocumented seizure activities reported with this administration. This will be investigated. At this time, I recommend keeping patient until 7:00 to make sure his neuro status remains stable and with no further seizure activities prior to discharge. Discussed with neurologist. ROSALVA MCDONOUGH NP Nov 07, 2018 11:47
--- NOTE | 2018-11-07 13:58 | NUR ---
patient in bed, asleep, responsive to verbal and touch, no seizure noted, remain SR in the monitor, pending discharge home if no seizure episode by 1900.
--- NOTE | 2018-11-07 19:11 | NUR ---
EOSS: ALERT AND ORIENTED, ABLE TO FOLLOW COMMANDS, NO SEIZURE NOTED, SR IN THE MONITOR. PENDING DISCHARGE WAITING FOR TIARA PT PIPING SUPERVISOR. DISCHARGE PACKET COMPLETED.
--- NOTE | 2018-11-07 20:22 | NUR ---
Pt was supposed to be picked up anytime now. Just spoke to Salome, the one who's picking up the pt. She said she'll be here in an hour. Pt aware. Pt is alert and oriented x 3. A bit slow. Given his seizure med for 2100.
--- NOTE | 2018-11-07 21:54 | NUR ---
Pt left the unit 10 mins ago with family via w/c with SYSTEMS DESIGNER's assistance.Given the paper work. Explained discharge paper. Given script. Asked pt and family if there's any questions. None. D/Cd IV heplock.Pt and family are very appreciative of the care given.
[2018-11-11] MEDS ORDERED: [UNRECOGNIZED DRUG - CODE] TP (23:44)
== END 2018-11-07 21:50 | disposition home or self-care (01) ==
LOC: E/R 06:09 → TEL 07:53
PROVIDERS: ADMIT Internal Medicine; ATTEND Internal Medicine
DX: G40.909 Epilepsy, unspecified, not intractable, without status epilepticus (principal); J06.9 Acute upper respiratory infection, unspecified
CPT/HCPCS: 36415; 70450; 70551; 71045; 80053; 80307; 81001; 82962; 83735; 84100; 84443; 85025; 85610; 87400; 96365; 99285; G0378; J1953; J2060; J7030

== ENCOUNTER 2019-03-20 19:47 | Emergency (ER) | payer SELFPAY ==
[~2019-03-20] VITALS: Ht 172.7 cm; Wt 75.0 kg
[~2019-03-20 19:47] MED LIST changes: +CLAR500T PO; -LEVE100018 PO; -LEVE500S8 PO; +LEVE750T70 PO; -MED4DP PO; +OXCA300T41 PO
[2019-03-20 19:52] VITALS: Ht 172.7 cm; Wt 75.0 kg
[2019-03-20] MEDS ORDERED: LEVETIRACETAM 1000 MG (PMX) 100 ML IVPB STA (20:17)
[2019-03-20] MEDS ORDERED: LORAZEPAM 2 MG INJ ONE (20:46)
--- NOTE | 2019-03-20 22:12 | ERD ---
ER Documentation Chief Complaint Chief Complaint multiple seizures today, on keppra- gap of missing meds x2 days HPI 33-year-old male with a history of meningioma with resection in 2016 with residual epilepsy on Keppra and oxcarbazepine brought in by friends for frequent seizures for the past few days. Reportedly the patient ran out of his Keppra so he has been taking his old dosage of Keppra which he had at home. He is suppose d to take about 3 g a day but has been taking a total of 1 g/day. He has been taking his other medication as prescribed. For this reason, they think that the patient has been having breakthrough seizures for the past 2 days. Patient was noted to have a possible seizure in triage. However he does return back to his baseline per his friends. Patient denies any headache, nausea, vomiting, fever, chills, or any other associated symptoms. ROS All systems reviewed and are negative except as per history of present illness. Medications Home Meds Active Scripts Clarithromycin* (Clarithromycin*) 500 Mg Tablet, 500 MG PO BID for 10 Days, TAB Prov:KAREN GOMES MD 11/18/18 Oxcarbazepine* (Oxcarbazepine*) 300 Mg Tablet, 300 MG PO BID for 30 Days, TAB Prov:KAREN GOMES MD 11/18/18 Levetiracetam* (Keppra*) 750 Mg Tablet, 1500 MG PO BID, #120 TAB Keppra 750 mg tabletX 2 tablet (1500 mg PER DOSE) twice a day. Prov:KAREN GOMES MD 11/18/18 Allergies Allergies: Coded Allergies: No Known Allergy (Unverified , 11/11/18) PMhx/Soc History of Surgery: Yes (Craniotomy w/tumor removal) Anesthesia Reaction: No Hx Neurological Disorder: Yes (Seizure disorder) Hx Respiratory Disorders: No Hx Cardiac Disorders: No Hx Psychiatric Problems: No Hx Miscellaneous Medical Probl: Yes (meningioma with resection in 2016 with residual epilepsy) Hx Alcohol Use: No Hx Substance Use: No Hx Tobacco Use: No Smoking Status: Never smoker FmHx Family History: No diabetes Physical Exam Vitals Vital Signs Date Temp Pulse Resp B/P (MAP) Pulse Ox O2 O2 Flow FiO2 Time Delivery Rate 03/20/19 88 18 107/70 100 Room Air 21:13 (82) 03/20/19 100.1 84 16 111/68 97 19:52 (82) Physical Exam Const: Appears post ictal but is awake, alert, nontoxic Head: Atraumatic Eyes: Normal Conjunctiva, PERRLA ENT: Normal External Ears, Nose and Mouth. Neck: Full range of motion. No meningismus. Resp: Clear to auscultation bilaterally Cardio: Regular rate and rhythm, no murmurs Abd: Soft, non tender, non distended. Normal bowel sounds Skin: No petechiae or rashes Back: No midline or flank tenderness Ext: No cyanosis, or edema Neur: Awake and alert, slow to respond, no facial asymmetry, moving all extremities spontaneously Psych: Normal Mood and Affect Result Diagram: 03/20/19201903/20/192019 Results 24 hrs Laboratory Tests Test 03/20/19 20:20 White Blood Count 5.0 10^3/ul Red Blood Count 5.31 10^6/ul Hemoglobin 14.9 g/dl Hematocrit 45.4 % Mean Corpuscular Volume 85.5 fl Mean Corpuscular Hemoglobin 28.1 pg Mean Corpuscular Hemoglobin Concent 32.8 g/dl Red Cell Distribution Width 11.7 % Platelet Count 217 10^3/UL Mean Platelet Volume 9.3 fl Immature Granulocytes % 0.000 % Neutrophils % 35.7 % Lymphocytes % 53.2 % Monocytes % 9.5 % Eosinophils % 1.0 % Basophils % 0.6 % Nucleated Red Blood Cells % 0.0 /100WBC Immature Granulocytes # 0.000 10^3/ul Neutrophils # 1.8 10^3/ul Lymphocytes # 2.7 10^3/ul Monocytes # 0.5 10^3/ul Eosinophils # 0.1 10^3/ul Basophils # 0.0 10^3/ul Nucleated Red Blood Cells # 0.0 10^3/ul Sodium Level 144 mmol/L Potassium Level 4.3 mmol/L Chloride Level 108 mmol/L Carbon Dioxide Level 20 mmol/L Anion Gap 16 Blood Urea Nitrogen 11 mg/dl Creatinine 1.04 mg/dl Est Glomerular Filtrat Rate mL/min > 60 mL/min Glucose Level 85 mg/dl Calcium Level 9.8 mg/dl Current Medications Medications Dose Sig/Tori Start Time Status Last (Trade) Ordered Route PRN Stop Time Admin Dose Reason Admin 100 ml @ ONCE STAT 03/20/19 DC 03/20/19 Levetiracetam 400 mls/hr IVPB 20:17 20:32 03/20/19 20:31 Lorazepam 2 mg STK-MED 03/20/19 DC (Ativan) ONCE .ROUTE 20:46 03/20/19 20:47 Procedures/MDM EMERGENT LABS AND DIAGNOSTIC STUDIES: Lab Results above were reviewed and interpreted by me. CBC: no anemia or evidence of infection BMP: [no e/o clinically significant electrolyte abnormality severe acidosis, alkalosis, renal failure, diabetic ketoacidosis] Radiology Results as interpreted by Radiology below were reviewed by Ezekiel Ramirez MD: CT head shows no acute abnormalities, old postoperative changes seen, stable Initial Nursing notes reviewed. Previous Medical Records requested via the Electronic Health Record. EMERGENCY DEPARTMENT COURSE / MEDICAL DECISION MAKING: Patient presented with multiple breakthrough seizures for the past few days, likely secondary to poor medication compliance. He states that he refilled his Keppra today but has not taken his appropriate dose for the past few days. Patient did have a seizure while here and was treated with Ativan 2 mg IV with improvement. He was given a Keppra IV load. Patient later states that yesterday he did fall and hit the left side of his head during seizure. For this reason, a CT head was ordered and does not show any acute abnormalities. After treatment with Ativan, the patient was here for several hours without any recurrent seizures. I feel he is stable for discharge at this time. He will be discharged home with his sister at bedside, who will be observing him. Return precautions were discussed. Medication compliance was encouraged. Follow-up with neurology was recommended. Patient's blood pressure was elevated (>120/80) but appears stable without evidence of hypertensive emergency or urgency. The patient was counseled about the risks of hypertension and urged to pursue outpatient monitoring and therapy within a week with their primary care physician. Departure Diagnosis: Primary Impression: Breakthrough seizure Additional Impression: Noncompliance with medication regimen Condition: Stable Patient Instructions: Seizure, Recurrent [Adult] ASHLEY RAMIREZ MD March 20, 2019 22:12
[2019-03-21 00:52] VITALS: BP 104/65; PULSE 62; RESP 18
[2019-03-21] MEDS ORDERED: LORAZEPAM 2 MG INJ ONE (04:34)
== END 2019-03-21 01:12 | disposition home or self-care (01) ==
LOC: E/R 19:47
DX: G40.909 Epilepsy, unspecified, not intractable, without status epilepticus (principal); R40.2142 Coma scale, eyes open, spontaneous, at arrival to emergency department; R40.2362 Coma scale, best motor response, obeys commands, at arrival to emergency department; R40.2252 Coma scale, best verbal response, oriented, at arrival to emergency department; Z91.14 Patient's other noncompliance with medication regimen
CPT/HCPCS: 36415; 70450; 80048; 85025; 96374; 99285; J1953; J2060

== ENCOUNTER 2019-03-21 04:27 | Inpatient (IN) | payer MEDICAID ==
[~2019-03-21] VITALS: Ht 167.6 cm; Wt 63.0 kg
[2019-03-21] VITALS (17 sets, daily range): BP systolic 97–122; BP diastolic 59–83; PULSE 54–141; RESP 14–34; Ht 167.6 cm; Wt 63.0 kg
--- NOTE | 2019-03-21 04:34 | ERD ---
ER Documentation Chief Complaint Chief Complaint sz HPI The patient is a 33-year-old male, presenting to the ER because of recurrent s eizure. He has had total 6 seizure today. He came to the ER on the second seizure, had extensive work-up and receive Keppra 1 gm around 8pm and discharged. He had another seizure prior to arrival by EMS. He had 2 seizures in the ER, aborted by Ativan 2 mg IV each time. After seizure he was awake, alert. He has been taking Keppra 1500 mg twice daily and Trileptal 300 mg twice daily. He denies headache, neck pain, chest pain, abdominal pain, vomiting, dizzy, diarrhea, denies tongue bite, fecal/urinary incontinence. Medical history: Seizure after meningioma surgery Past surgical history: Meningioma in 2016 ROS All systems reviewed and are negative except as per history of present illness. Medications Home Meds Active Scripts Clarithromycin* (Clarithromycin*) 500 Mg Tablet, 500 MG PO BID for 10 Days, TAB Prov:KAREN GOMES MD 11/18/18 Oxcarbazepine* (Oxcarbazepine*) 300 Mg Tablet, 300 MG PO BID for 30 Days, TAB Prov:KAREN GOMES MD 11/18/18 Levetiracetam* (Keppra*) 750 Mg Tablet, 1500 MG PO BID, #120 TAB Keppra 750 mg tabletX 2 tablet (1500 mg PER DOSE) twice a day. Prov:KAREN GOMES MD 11/18/18 Allergies Allergies: Coded Allergies: No Known Allergy (Unverified , 11/11/18) PMhx/Soc History of Surgery: Yes (Craniotomy w/tumor removal) Anesthesia Reaction: No Hx Neurological Disorder: Yes (Seizure disorder) Hx Respiratory Disorders: No Hx Cardiac Disorders: No Hx Psychiatric Problems: No Hx Miscellaneous Medical Probl: Yes (meningioma with resection in 2016 with re sidual epilepsy) Hx Alcohol Use: No Hx Substance Use: No Hx Tobacco Use: No Physical Exam Vitals Vital Signs Date Temp Pulse Resp B/P (MAP) Pulse Ox O2 O2 Flow FiO2 Time Delivery Rate 03/21/19 64 19 123/78 96 Nasal 05:32 (93) Cannula 03/21/19 96.7 71 18 129/78 100 04:51 (95) Physical Exam Const: No acute distress. Head: Atraumatic. Eyes: Normal Conjunctiva. ENT: Normal External Ears, Nose and Mouth. Neck: Full range of motion. No meningismus. Resp: Clear to auscultation bilaterally. Cardio: Regular rate and rhythm. Abd: Soft, non distended, normal bowel sounds, non tender. Skin: No petechiae or rashes. Back: No midline or flank tenderness. Ext: No cyanosis, or edema. Neur: Awake and alert. No focal deficit Psych: Normal Mood and Affect. Result Diagram: 03/21/1925 Results 24 hrs Laboratory Tests Test 03/21/19 05:25 White Blood Count 5.1 10^3/ul Red Blood Count 5.04 10^6/ul Hemoglobin 14.0 g/dl Hematocrit 42.7 % Mean Corpuscular Volume 84.7 fl Mean Corpuscular Hemoglobin 27.8 pg Mean Corpuscular Hemoglobin Concent 32.8 g/dl Red Cell Distribution Width 11.8 % Platelet Count 176 10^3/UL Mean Platelet Volume 10.0 fl Immature Granulocytes % 0.200 % Neutrophils % 64.3 % Lymphocytes % 25.9 % Monocytes % 8.6 % Eosinophils % 0.4 % Basophils % 0.6 % Nucleated Red Blood Cells % 0.0 /100WBC Immature Granulocytes # 0.010 10^3/ul Neutrophils # 3.3 10^3/ul Lymphocytes # 1.3 10^3/ul Monocytes # 0.4 10^3/ul Eosinophils # 0.0 10^3/ul Basophils # 0.0 10^3/ul Nucleated Red Blood Cells # 0.0 10^3/ul Current Medications Medications Dose Sig/Tori Start Time Status Last (Trade) Ordered Route PRN Stop Time Admin Dose Reason Admin 100 ml @ ONCE ONCE 03/21/19 DC 03/21/19 Levetiracetam 400 mls/hr IVPB 05:00 04:48 03/21/19 05:14 Lorazepam 2 mg ONCE ONCE 03/21/19 DC 03/21/19 (Ativan) IV 05:00 05:00 03/21/19 05:01 Lorazepam 2 mg ONCE ONCE 03/21/19 DC 03/21/19 (Ativan) IV 05:00 04:50 03/21/19 05:01 100 ml @ ONCE ONCE 03/21/19 DC 03/21/19 Levetiracetam 400 mls/hr IVPB 05:30 05:31 03/21/19 05:44 100 ml @ Q12 IVPB 03/21/19 Levetiracetam 400 mls/hr 15:00 Lorazepam 2 mg Q1H PRN 03/21/19 (Ativan) IV SEIZURES 05:30 Sodium 1,000 ml @ [id number] IV 03/21/19 Chloride 75 mls/hr 05:21 650 mg Q6H PRN 03/21/19 Acetaminophen PO PAIN 05:30 (Tylenol LEVEL 1-3 OR Liquid) FEVER Docusate 100 mg Q12H PRN 03/21/19 Sodium PO 05:30 (Colace) CONSTIPATION Bisacodyl 5 mg DAILY PRN 03/21/19 (Dulcolax) PO 05:30 CONSTIPATION 40 mg DAILY@06 03/21/19 DC Pantoprazole IV 06:00 (Protonix 03/21/19 06:00 Iv) 300 mg BID PO 03/21/19 Oxcarbazepine 09:00 (Trileptal) 40 mg DAILY@06 03/21/19 Pantoprazole PO 06:00 (Protonix Tab) Procedures/MDM UDS, ETOH Pending MEDICAL MAKING DECISION: The patient is a 33-year-old male, presenting with acute status epilepticus, was treated with Ativan 2 mg IV in the ER x2 due to re current seizure, Keppra 1 g IV with good response The differential diagnoses considered include but are not limited to medical noncompliance, complex seizure disorder, intracranial pathology Departure Diagnosis: Primary Impression: Status epilepticus Condition: Stable Comments I discussed the findings with the patient. I discussed the patient with Nicolas at 5:10 AM , who was made aware of the lab, the treatment, the patient condition. The patient is admitted to ICU Disclaimer: Inadvertent spelling and grammatical errors are likely due to EHR/dictation software use and do not reflect on the overall quality of patient care. Also, please note that the electronic time recorded on this note does not necessarily reflect the actual time of the patient encounter. DIANE WALKER MD March 21, 2019 04:34
[2019-03-21] MEDS ORDERED: LORAZEPAM 2 MG INJ IV ONE ×2 (05:00)
[2019-03-21] MEDS ORDERED: LEVETIRACETAM 1000 MG (PMX) 100 ML IVPB ONE (05:00)
[2019-03-21] MEDS ORDERED: LEVETIRACETAM 500 MG (PMX) 100 ML IVPB ONE (05:30)
[2019-03-21] MEDS ORDERED: DOCUSATE SODIUM 100 MG CAP PO PRN (05:30)
[2019-03-21] MEDS ORDERED: BISACODYL (EC) 5 MG TAB PO PRN (05:30)
[2019-03-21] MEDS: SOD CHLORIDE 0.9% 1,000 ML IV SCH ×2 (05:54→17:58)
[2019-03-21] MEDS ORDERED: PANTOPRAZOLE 40 MG INJ IV SCH (06:00)
--- NOTE | 2019-03-21 06:55 | HP ---
Date/Time of Note Date/Time of Note DATE: 03/21/19 TIME: 06:52 Assessment/Plan VTE Prophylaxis SCD applied (from Ns): Yes Pharmacological prophylaxis: NA/contraindicated Pharm contraindication: low risk/ambulating Assessment/Plan Hospital Course This is a 33-year-old male being admitted to the ICU floor for: 1. Status epilepticus: Secondary likely to missing medication doses and possible medication interaction. Patient does have clarithromycin also on his med recon but I am unsure whether he is actually taking this. We will need to confirm this. Need to order a urine drug screen as well as patient has been a marijuana user in the past. At the current time we will continue Keppra 1500 mg twice daily and Trileptal 300 mg twice daily. I have consulted neurology Seizure precaution, fall precaution CT scan of the head did not show any acute abnormalities. Patient does have a history of a meningioma, will also check a MRI of the brain with contrast. 2. History of brain tumor, status post resection. Check MRI brain with contrast 3 DVT GI prophylaxis: SCDs, no GI prophylaxis indicated Further treatment strategy will be implemented as per the clinical course. Greater than 35 minutes of critical care time was spent on the care management this patient. Result Diagram: 03/21/19 0525 03/21/19 0525 Results 24hrs Laboratory Tests Test 03/21/19 05:25 White Blood Count 5.1 Red Blood Count 5.04 Hemoglobin 14.0 Hematocrit 42.7 Mean Corpuscular Volume 84.7 Mean Corpuscular Hemoglobin 27.8 L Mean Corpuscular Hemoglobin Concent 32.8 Red Cell Distribution Width 11.8 Platelet Count 176 Mean Platelet Volume 10.0 Immature Granulocytes % 0.200 Neutrophils % 64.3 Lymphocytes % 25.9 Monocytes % 8.6 Eosinophils % 0.4 Basophils % 0.6 Nucleated Red Blood Cells % 0.0 Immature Granulocytes # 0.010 Neutrophils # 3.3 Lymphocytes # 1.3 Monocytes # 0.4 Eosinophils # 0.0 Basophils # 0.0 Nucleated Red Blood Cells # 0.0 Sodium Level 142 Potassium Level 4.1 Chloride Level 108 Carbon Dioxide Level 26 Anion Gap 8 # Blood Urea Nitrogen 9 Creatinine 0.89 Est Glomerular Filtrat Rate mL/min > 60 Glucose Level 84 Hemoglobin A1c 4.6 Calcium Level 9.2 Total Bilirubin 0.9 Direct Bilirubin 0.00 Indirect Bilirubin 0.9 Aspartate Amino Transf (AST/SGOT) 18 Alanine Aminotransferase (ALT/SGPT) 25 Alkaline Phosphatase 75 Total Protein 6.6 Albumin 4.1 Globulin 2.50 Albumin/Globulin Ratio 1.64 Thyroid Stimulating Hormone (TSH) 2.090 Ethyl Alcohol Level < 10.0 H HPI/ROS Admit Date/Time Admit Date/Time Hx of Present Illness Chief complaint: Recurrent seizures The patient is a 33-year-old male, presenting to the ER because of recurrent seizure. He has had total 6 seizure today. He came to the ER on the second seizure, had extensive work-up and receive Keppra 1 gm around 8pm and discharged. He had another seizure prior to arrival by EMS. He had 2 seizures in the ER, aborted by Ativan 2 mg IV each time. He is currently awake but he does appear to be postictal. He had been taking Keppra 1500 mg twice daily and Trileptal 300 mg twice daily, however his family member at the bedside did state that a couple of days ago he did run out of this prescription and when he did receive the new prescription he was dosing it differently than before. Family does not know whether he still smoking marijuana or not. Allergies: NKDA Medications: Keppra 1500 mg twice daily Oxcarbazepine 300 mg twice daily Possibly clarithromycin ROS Subjective hx not possible: other (Patient is currently postictal) PMH/Family/Social Past Medical History history of brain tumor, status post resection 2015, seizure disorder Medications Current Medications Levetiracetam 100 ml @ 400 mls/hr Q12 IVPB ; Start 03/21/19 at 15:00 Lorazepam (Ativan) 2 mg Q1H PRN IV SEIZURES; Start 03/21/19 at 05:30 Sodium Chloride 1,000 ml @ 75 mls/hr [id number] IV Last administered on 03/21/19at 05:54; Admin Dose 75 MLS/HR; Start 03/21/19 at 05:21 Acetaminophen (Tylenol Liquid) 650 mg Q6H PRN PO PAIN LEVEL 1-3 OR FEVER; Start 03/21/19 at 05:30 Docusate Sodium (Colace) 100 mg Q12H PRN PO CONSTIPATION; Start 03/21/19 at 05:30 Bisacodyl (Dulcolax) 5 mg DAILY PRN PO CONSTIPATION; Start 03/21/19 at 05:30 Pantoprazole (Protonix Tab) 40 mg DAILY@06 PO ; Start 03/21/19 at 06:00 Oxcarbazepine (Trileptal) 300 mg BID PO ; Start 03/21/19 at 07:00 Coded Allergies: No Known Allergy (Unverified , 11/11/18) Past Surgical History Status post and resection of meningioma in 2016, craniotomy Family History Significant Family History: no pertinent family hx Social History History of marijuana use, currently unable to verify whether he is using it still or not. Alcohol Use: none Smoking Status: Smoker,current status unk Exam/Review of Systems Vital Signs Vitals Vital Signs Date Temp Pulse Resp B/P (MAP) Pulse Ox O2 O2 Flow FiO2 Time Delivery Rate 03/21/19 64 19 123/78 96 Nasal 05:32 (93) Cannula 03/21/19 96.7 04:51 Exam Exam General: Currently awake but he does appear to be postictal HEENT: Atraumatic, normocephalic. The pupils are equal, round and reactive. Extraocular motor are intact Neck: Supple with full range of motion. No rigidity or meningismus Chest: Nontender Lungs: Clear to auscultation bilaterally no crackles rales or wheezing Heart: Normal S1-S2, Regular rhythm and rate. No murmur, S3, or S4 Abdomen: Soft , nontender, nondistended , bowel sounds are present. No guarding no rebound tenderness , No masses or organomegaly. No costovertebral temporal angle mass Extremities: Normal to inspection, no edema no cyanosis Neurologic: Awake and looking around but he does appear to be postictal. Additional Comments PROCEDURE: CT brain without contrast CLINICAL INDICATION: Headaches following head injury TECHNIQUE: A CT of the brain was performed utilizing axial sections from the skull base through the vertex without contrast. Sagittal and coronal images were also reformatted. DICOM images are available. One or more of the following dose reduction techniques were used: Automated exposure control, adjustment of the mA and/or kV according to patient size, use of iterative reconstruction technique. The exam CTDIvol = 39.64 mGy and DLP = 634.23 mGy-cm. COMPARISON: CT 11/11/2018. MRI the brain 11/13/2018 FINDINGS: No acute intracranial hemorrhage is identified. There is no mass effect or midline shift. No extra-axial fluid collection is seen. The ventricles and sulci are larger in size and configuration for the patient's provided age of 33 years consistent with advanced generalized atrophy. Again demonstrated are large areas of postoperative encephalomalacia within the frontal lobes bilaterally with associated ex vacuo enlargement involving the frontal horns of the lateral ventricles. Diffuse low attenuation of the adjacent white matter likely reflect post traumatic gliosis and white matter disease. Reyes-white differentiation is preserved with no findings to suggest an acute ischemic infarct. The fourth ventricle is midline and there is no density alteration within the ashely or cerebellum. Changes of frontal craniotomy are again noted. There is opacification of the left greater than right frontal sinuses. The mastoid air cells and remaining visualized paranasal sinuses are clear. RPTAT:HJJR IMPRESSION: 1. There is no evidence of acute post traumatic intracranial abnormality. 2. Stable postoperative encephalomalacia of the frontal lobes with extensive bilateral frontal lobe gliosis and ex vacuo enlargement of the frontal horns lateral ventricles superimposed upon generalized advanced atrophy for the patient's age. 3. Craniotomy changes of the frontal bone again noted with left frontal sinus disease unchanged. Physician Katy Date Time Electronically viewed and signed by Physician Katy on 03/21/2019 00:29 JR/ CC: ASHLEY GAR MD [id number] PRATIMA ROQUE March 21, 2019 06:55
[2019-03-21] MEDS: OXCARBAZEPINE 300 MG TAB PO SCH ×2 (07:00→21:00)
[2019-03-21] MEDS: PANTOPRAZOLE (EC) 40 MG TAB PO SCH (07:00)
[2019-03-21] MEDS ORDERED: OXCARBAZEPINE 300 MG TAB PO SCH (09:00)
[2019-03-21] MEDS: LORAZEPAM 2 MG INJ IV PRN ×2 (10:14→11:48)
[2019-03-21] MEDS ORDERED: PHENYTOIN 1,000 MG in SOD CHLORIDE 0.9% 100 ML IV STA (10:52)
--- NOTE | 2019-03-21 10:57 | CONS ---
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 The clinical picture is consistent w/ convulsive status epilepticus.. He endorses medication noncompliance at home, the likely underlying precipitant.. Head CT shows stable post-op changes P: OK to defer MRI brain for now Add UA, CXR.. Start Dilantin; titrate prn to goal level 10-20 OK to resume Keppra/Trileptal per ops.. Ativan iv prn prolonged seizure > 5min Other management per primary Will follow clinically Consultation Date/Type/Reason Admit Date/Time Type of Consult Neurology Reason for Consultation status epilepticus Requesting Provider: PRATIMA ROQUE Date/Time of Note DATE: 03/21/19 TIME: 10:48 Hx of Present Illness Patient is presently unable to contribute a Hx 2/2 lethargy.. He does, though, confirm running out of seizure medications at home recently.. It is elsewhere noted: The patient is a 33-year-old male, presenting to the ER because of recurrent seizure. He has had total 6 seizure today. He came to the ER on the second seizure, had extensive work-up and receive Keppra 1 gm around 8pm and discharged. He had another seizure prior to arrival by EMS. He had 2 seizures in the ER, aborted by Ativan 2 mg IV each time. He is currently awake but he does appear to be postictal. He had been taking Keppra 1500 mg twice daily and Trileptal 300 mg twice daily, however his family member at the bedside did state that a couple of days ago he did run out of this prescription and when he did receive the new prescription he was dosing it differently than before. Family does not know whether he still smoking marijuana or not. Allergies: NKDA Medications: Keppra 1500 mg twice daily Oxcarbazepine 300 mg twice daily Possibly clarithromycin Subjective hx not possible: pt critical status Exam/Review of Systems Exam Vitals Vital Signs Date Temp Pulse Resp B/P (MAP) Pulse Ox O2 O2 Flow FiO2 Time Delivery Rate 03/21/19 55 18 135/70 100 Nasal 2.0 07:00 (91) Cannula 03/21/19 96.7 04:51 Exam PE: Gen Appearance: No Apparent Distress HEENT: Normocephalic Cardiovascular: Regular rate Abdomen: Soft Extremities: Dry NE: The patient was lethargic and sparsely verbal. Cranial nerve examination was limited by mental status. Pupils were equal and reactive to light. There was no afferent pupillary defect. Funduscopic examination was limited. Face was grossly symmetric, w/ present corneal and cough reflexes. Tone was normal. Muscle bulk was normal. I did not see fasciculations. The patient moved his limbs symmetrically. Coordination and gait testing was limited by mental status. Arm and leg reflexes were within normal limits and symmetric. Harris's sign was absent. Plantar responses were flexor. Results Result Diagram: 03/21/19 0525 03/21/19 0525 Results 24hrs Laboratory Tests Test 03/21/19 05:25 03/21/19 05:44 White Blood Count 5.1 Red Blood Count 5.04 Hemoglobin 14.0 Hematocrit 42.7 Mean Corpuscular Volume 84.7 Mean Corpuscular Hemoglobin 27.8 L Mean Corpuscular Hemoglobin Concent 32.8 Red Cell Distribution Width 11.8 Platelet Count 176 Mean Platelet Volume 10.0 Immature Granulocytes % 0.200 Neutrophils % 64.3 Lymphocytes % 25.9 Monocytes % 8.6 Eosinophils % 0.4 Basophils % 0.6 Nucleated Red Blood Cells % 0.0 Immature Granulocytes # 0.010 Neutrophils # 3.3 Lymphocytes # 1.3 Monocytes # 0.4 Eosinophils # 0.0 Basophils # 0.0 Nucleated Red Blood Cells # 0.0 Sodium Level 142 Potassium Level 4.1 Chloride Level 108 Carbon Dioxide Level 26 Anion Gap 8 # Blood Urea Nitrogen 9 Creatinine 0.89 Est Glomerular Filtrat Rate mL/min > 60 Glucose Level 84 Hemoglobin A1c 4.6 Calcium Level 9.2 Total Bilirubin 0.9 Direct Bilirubin 0.00 Indirect Bilirubin 0.9 Aspartate Amino Transf (AST/SGOT) 18 Alanine Aminotransferase (ALT/SGPT) 25 Alkaline Phosphatase 75 Total Protein 6.6 Albumin 4.1 Globulin 2.50 Albumin/Globulin Ratio 1.64 Thyroid Stimulating Hormone (TSH) 2.090 Ethyl Alcohol Level < 10.0 H Carbamazepine (Tegretol) Level < 0.0 L Medications Medication Current Medications Levetiracetam 100 ml @ 400 mls/hr Q12 IVPB ; Start 03/21/19 at 15:00 Lorazepam (Ativan) 2 mg Q1H PRN IV SEIZURES Last administered on 03/21/19at 10:14; Admin Dose 2 MG; Start 03/21/19 at 05:30 Sodium Chloride 1,000 ml @ 75 mls/hr [id number] IV Last administered on 03/21/19at 05:54; Admin Dose 75 MLS/HR; Start 03/21/19 at 05:21 Acetaminophen (Tylenol Liquid) 650 mg Q6H PRN PO PAIN LEVEL 1-3 OR FEVER; S tart 03/21/19 at 05:30 Docusate Sodium (Colace) 100 mg Q12H PRN PO CONSTIPATION; Start 03/21/19 at 0 5:30 Bisacodyl (Dulcolax) 5 mg DAILY PRN PO CONSTIPATION; Start 03/21/19 at 05:30 Pantoprazole (Protonix Tab) 40 mg DAILY@06 PO Last administered on 03/21/19at 07:00; Admin Dose 40 MG; Start 03/21/19 at 06:00 Oxcarbazepine (Trileptal) 300 mg BID PO Last administered on 03/21/19at 07:00; Admin Dose 300 MG; Start 03/21/19 at 07:00 Past Medical History reviewed Home Meds Active Scripts Clarithromycin* (Clarithromycin*) 500 Mg Tablet, 500 MG PO BID for 10 Days, TAB Prov:KAREN GOMES MD 11/18/18 Oxcarbazepine* (Oxcarbazepine*) 300 Mg Tablet, 300 MG PO BID for 30 Days, TAB Prov:KAREN GOMES MD 11/18/18 Levetiracetam* (Keppra*) 750 Mg Tablet, 1500 MG PO BID, #120 TAB Keppra 750 mg tabletX 2 tablet (1500 mg PER DOSE) twice a day. Prov:KAREN GOMES MD 11/18/18 Medications Current Medications Levetiracetam 100 ml @ 400 mls/hr Q12 IVPB ; Start 03/21/19 at 15:00 Lorazepam (Ativan) 2 mg Q1H PRN IV SEIZURES Last administered on 03/21/19at 10:14; Admin Dose 2 MG; Start 03/21/19 at 05:30 Sodium Chloride 1,000 ml @ 75 mls/hr [id number] IV Last administered on 03/21/19at 05:54; Admin Dose 75 MLS/HR; Start 03/21/19 at 05:21 Acetaminophen (Tylenol Liquid) 650 mg Q6H PRN PO PAIN LEVEL 1-3 OR FEVER; Start 03/21/19 at 05:30 Docusate Sodium (Colace) 100 mg Q12H PRN PO CONSTIPATION; Start 03/21/19 at 05:30 Bisacodyl (Dulcolax) 5 mg DAILY PRN PO CONSTIPATION; Start 03/21/19 at 05:30 Pantoprazole (Protonix Tab) 40 mg DAILY@06 PO Last administered on 03/21/19at 07:00; Admin Dose 40 MG; Start 03/21/19 at 06:00 Oxcarbazepine (Trileptal) 300 mg BID PO Last administered on 03/21/19at 07:00; Admin Dose 300 MG; Start 03/21/19 at 07:00 Allergies: Coded Allergies: No Known Allergy (Unverified , 11/11/18) Past Surgical History reviewed Social History Alcohol Use: none Smoking Status: Smoker,current status JL Sanz March 21, 2019 10:57
--- NOTE | 2019-03-21 13:23 | PN ---
Date/Time of Note Date/Time of Note DATE: 03/21/19 TIME: 13:19 Assessment/Plan VTE Prophylaxis SCD applied (from Nsg): Yes Pharmacological prophylaxis: NA/contraindicated Pharm contraindication: low risk/ambulating Lines/Catheters IV Catheter Type (from Nrsg): Peripheral IV Urinary Cath still in place: No Assessment/Plan Assessment/Plan 1. Status epilepticus - Neurology on board and appreciate recommendations. Discussed patients recurrent seizures and states during last admission, had difficulty finding the right regime and unfortunate that patient took the wrong dosages as outpatient. - Continue Keppra and Trileptal and started on Dilantin IV - Will monitor for further seizure activity. Ativan PRN 2. History of brain tumor, status post resection - history of meningioma - hold off on MRI for now until more stable 3. Disposition - Continue monitoring in ICU given need for close monitoring in setting of recurrent frequent seizure activity Result Diagram: 03/21/19 0525 03/21/19 0525 Results 24hrs Laboratory Tests Test 03/21/19 05:25 03/21/19 05:44 03/21/19 10:45 White Blood Count 5.1 Red Blood Count 5.04 Hemoglobin 14.0 Hematocrit 42.7 Mean Corpuscular Volume 84.7 Mean Corpuscular Hemoglobin 27.8 L Mean Corpuscular Hemoglobin Concent 32.8 Red Cell Distribution Width 11.8 Platelet Count 176 Mean Platelet Volume 10.0 Immature Granulocytes % 0.200 Neutrophils % 64.3 Lymphocytes % 25.9 Monocytes % 8.6 Eosinophils % 0.4 Basophils % 0.6 Nucleated Red Blood Cells % 0.0 Immature Granulocytes # 0.010 Neutrophils # 3.3 Lymphocytes # 1.3 Monocytes # 0.4 Eosinophils # 0.0 Basophils # 0.0 Nucleated Red Blood Cells # 0.0 Sodium Level 142 Potassium Level 4.1 Chloride Level 108 Carbon Dioxide Level 26 Anion Gap 8 # Blood Urea Nitrogen 9 Creatinine 0.89 Est Glomerular Filtrat Rate mL/min > 60 Glucose Level 84 Hemoglobin A1c 4.6 Calcium Level 9.2 Total Bilirubin 0.9 Direct Bilirubin 0.00 Indirect Bilirubin 0.9 Aspartate Amino Transf (AST/SGOT) 18 Alanine Aminotransferase (ALT/SGPT) 25 Alkaline Phosphatase 75 Total Protein 6.6 Albumin 4.1 Globulin 2.50 Albumin/Globulin Ratio 1.64 Thyroid Stimulating Hormone (TSH) 2.090 Ethyl Alcohol Level < 10.0 H Carbamazepine (Tegretol) Level < 0.0 L Urine Color YELLOW Urine Clarity CLEAR Urine pH 7.0 Urine Specific [place] 1.017 Urine Ketones 1+ H Urine Nitrite NEGATIVE Urine Bilirubin NEGATIVE Urine Urobilinogen NEGATIVE Urine Leukocyte Esterase NEGATIVE Urine Hemoglobin NEGATIVE Urine Glucose NEGATIVE Urine Total Protein NEGATIVE Urine Opiates Screen Negative Urine Barbiturates Negative Urine Amphetamines Screen Negative Urine Benzodiazepines Screen Negative Urine Cocaine Screen Negative Urine Cannabinoids Negative Subjective 24 Hr Interval Summary Free Text/Dictation Patient has been experiencing multiple seizures that break after given Ativan. Neurology made aware and given Dilantin. Prior to seizures patient denies any headache, dizziness, or pain. Exam/Review of Systems Exam Vitals Vital Signs Date Temp Pulse Resp B/P (MAP) Pulse Ox O2 O2 Flow FiO2 Time Delivery Rate 03/21/19 58 19 116/83 100 11:00 (94) 03/21/19 98.7 08:00 03/21/19 Nasal 2.0 07:00 Cannula Exam General: Lethargic but answering questions appropriately HEENT: Atraumatic, normocephalic. The pupils are equal, round and reactive. Extraocular motor are intact Neck: Supple with full range of motion. No rigidity or meningismus Chest: Nontender Lungs: Clear to auscultation bilaterally no crackles rales or wheezing Heart: Normal S1-S2, Regular rhythm and rate. No murmur, S3, or S4 Abdomen: Soft , nontender, nondistended , bowel sounds are present. Extremities: Normal to inspection, no edema no cyanosis Results Results 24hrs Laboratory Tests Test 03/21/19 05:25 03/21/19 05:44 03/21/19 10:45 White Blood Count 5.1 Red Blood Count 5.04 Hemoglobin 14.0 Hematocrit 42.7 Mean Corpuscular Volume 84.7 Mean Corpuscular Hemoglobin 27.8 L Mean Corpuscular Hemoglobin Concent 32.8 Red Cell Distribution Width 11.8 Platelet Count 176 Mean Platelet Volume 10.0 Immature Granulocytes % 0.200 Neutrophils % 64.3 Lymphocytes % 25.9 Monocytes % 8.6 Eosinophils % 0.4 Basophils % 0.6 Nucleated Red Blood Cells % 0.0 Immature Granulocytes # 0.010 Neutrophils # 3.3 Lymphocytes # 1.3 Monocytes # 0.4 Eosinophils # 0.0 Basophils # 0.0 Nucleated Red Blood Cells # 0.0 Sodium Level 142 Potassium Level 4.1 Chloride Level 108 Carbon Dioxide Level 26 Anion Gap 8 # Blood Urea Nitrogen 9 Creatinine 0.89 Est Glomerular Filtrat Rate mL/min > 60 Glucose Level 84 Hemoglobin A1c 4.6 Calcium Level 9.2 Total Bilirubin 0.9 Direct Bilirubin 0.00 Indirect Bilirubin 0.9 Aspartate Amino Transf (AST/SGOT) 18 Alanine Aminotransferase (ALT/SGPT) 25 Alkaline Phosphatase 75 Total Protein 6.6 Albumin 4.1 Globulin 2.50 Albumin/Globulin Ratio 1.64 Thyroid Stimulating Hormone (TSH) 2.090 Ethyl Alcohol Level < 10.0 H Carbamazepine (Tegretol) Level < 0.0 L Urine Color YELLOW Urine Clarity CLEAR Urine pH 7.0 Urine Specific [place] 1.017 Urine Ketones 1+ H Urine Nitrite NEGATIVE Urine Bilirubin NEGATIVE Urine Urobilinogen NEGATIVE Urine Leukocyte Esterase NEGATIVE Urine Hemoglobin NEGATIVE Urine Glucose NEGATIVE Urine Total Protein NEGATIVE Urine Opiates Screen Negative Urine Barbiturates Negative Urine Amphetamines Screen Negative Urine Benzodiazepines Screen Negative Urine Cocaine Screen Negative Urine Cannabinoids Negative Medications Medication Current Medications Levetiracetam 100 ml @ 400 mls/hr Q12 IVPB ; Start 03/21/19 at 15:00 Lorazepam (Ativan) 2 mg Q1H PRN IV SEIZURES Last administered on 03/21/19at 11:48; Admin Dose 2 MG; Start 03/21/19 at 05:30 Sodium Chloride 1,000 ml @ 75 mls/hr [id number] IV Last administered on 03/21/19at 05:54; Admin Dose 75 MLS/HR; Start 03/21/19 at 05:21 Acetaminophen (Tylenol Liquid) 650 mg Q6H PRN PO PAIN LEVEL 1-3 OR FEVER; Start 03/21/19 at 05:30 Docusate Sodium (Colace) 100 mg Q12H PRN PO CONSTIPATION; Start 03/21/19 at 05:30 Bisacodyl (Dulcolax) 5 mg DAILY PRN PO CONSTIPATION; Start 03/21/19 at 05:30 Pantoprazole (Protonix Tab) 40 mg DAILY@06 PO Last administered on 03/21/19at 07:00; Admin Dose 40 MG; Start 03/21/19 at 06:00 Oxcarbazepine (Trileptal) 300 mg BID PO Last administered on 03/21/19at 07:00; Admin Dose 300 MG; Start 03/21/19 at 07:00 Phenytoin (Dilantin) 100 mg Q8 IV ; Start 03/21/19 at 14:00 JAY BOUDREAUX MD March 21, 2019 13:23
[2019-03-21] MEDS: PHENYTOIN 100 MG INJ IV SCH ×2 (14:15→21:06)
[2019-03-21] MEDS: LEVETIRACETAM 1500 MG (PMX) 100 ML IVPB SCH ×2 (17:15→21:06)
[2019-03-22] VITALS (25 sets, daily range): BP systolic 109–122; BP diastolic 70–100; PULSE 52–138; RESP 9–24
[2019-03-22] MEDS: PANTOPRAZOLE (EC) 40 MG TAB PO SCH (06:00)
[2019-03-22] MEDS: PHENYTOIN 100 MG INJ IV SCH ×3 (06:19→21:40)
--- NOTE | 2019-03-22 08:42 | PN ---
Date/Time of Note Date/Time of Note DATE: 03/22/19 TIME: 08:42 Assessment/Plan VTE Prophylaxis Risk score (from Ns)>0 risk: 0 SCD applied (from Ns): Yes Pharmacological prophylaxis: NA/contraindicated Pharm contraindication: low risk/ambulating Lines/Catheters IV Catheter Type (from [facility]): Peripheral IV Urinary Cath still in place: No Assessment/Plan Assessment/Plan 1. Status epilepticus - Neurology on board for medication management of recurrent seizures. Currently on keppra, dilantin and tegretol. Had seizure activity again this am. During last admission for seizures, had difficulty finding an appropriate regime for the patient - Will monitor for further seizure activity. Ativan PRN 2. History of brain tumor, status post resection - history of meningioma - will check MRI when stable 3. Disposition - Continue monitoring in ICU given need for close monitoring in setting of recurrent frequent seizure activity Result Diagram: 03/22/19 0501 03/22/19 0501 Results 24hrs Laboratory Tests Test 03/21/19 10:45 03/21/19 12:51 03/22/19 05:01 Urine Color YELLOW Urine Clarity CLEAR Urine pH 7.0 Urine Specific [place] 1.017 Urine Ketones 1+ H Urine Nitrite NEGATIVE Urine Bilirubin NEGATIVE Urine Urobilinogen NEGATIVE Urine Leukocyte Esterase NEGATIVE Urine Hemoglobin NEGATIVE Urine Glucose NEGATIVE Urine Total Protein NEGATIVE Urine Opiates Screen Negative Urine Barbiturates Negative Urine Amphetamines Screen Negative Urine Benzodiazepines Screen Negative Urine Cocaine Screen Negative Urine Cannabinoids Negative Phenytoin (Dilantin) Level 20.5 *H White Blood Count 6.8 # Red Blood Count 5.21 Hemoglobin 14.5 Hematocrit 44.5 Mean Corpuscular Volume 85.4 Mean Corpuscular Hemoglobin 27.8 L Mean Corpuscular Hemoglobin Concent 32.6 Red Cell Distribution Width 11.7 Platelet Count 183 Mean Platelet Volume 9.4 Immature Granulocytes % 0.100 Neutrophils % 66.4 Lymphocytes % 24.4 Monocytes % 8.1 Eosinophils % 0.7 Basophils % 0.3 Nucleated Red Blood Cells % 0.0 Immature Granulocytes # 0.010 Neutrophils # 4.5 Lymphocytes # 1.7 Monocytes # 0.6 Eosinophils # 0.1 Basophils # 0.0 Nucleated Red Blood Cells # 0.0 Sodium Level 143 Potassium Level 3.8 Chloride Level 107 Carbon Dioxide Level 24 Anion Gap 12 Blood Urea Nitrogen 4 L Creatinine 0.81 Est Glomerular Filtrat Rate mL/min > 60 Glucose Level 101 Calcium Level 9.1 Total Bilirubin 0.9 Direct Bilirubin 0.00 Indirect Bilirubin 0.9 Aspartate Amino Transf (AST/SGOT) 19 Alanine Aminotransferase (ALT/SGPT) 17 Alkaline Phosphatase 110 Total Protein 7.7 # Albumin 4.5 Globulin 3.20 Albumin/Globulin Ratio 1.40 Subjective 24 Hr Interval Summary Free Text/Dictation Patient had a seizure this am and remains lethargic and postictal. Exam/Review of Systems Exam Vitals Vital Signs Date Temp Pulse Resp B/P (MAP) Pulse Ox O2 O2 Flow FiO2 Time Delivery Rate 03/22/19 97.5 98 18 112/100 Room Air 08:00 (104) 03/22/19 100 07:00 03/21/19 2.0 07:00 Intake and Output 03/21/19 03/21/19 03/22/19 1515:00 23:00 07:00 IntakeIntake Total 600 ml 550 ml 600 ml OutputOutput Total 100 ml 550 ml 1800 ml BalanceBalance 500 ml 0 ml -1200 ml Exam General: Lethargic Neck: Supple Chest: Nontender Lungs: Clear to auscultation bilaterally no crackles rales or wheezing Heart: Normal S1-S2, Regular rhythm and rate. No murmur, S3, or S4 Abdomen: Soft , nontender, nondistended , bowel sounds are present. Extremities: Normal to inspection, no edema no cyanosis Results Results 24hrs Laboratory Tests Test 03/21/19 10:45 03/21/19 12:51 03/22/19 05:01 Urine Color YELLOW Urine Clarity CLEAR Urine pH 7.0 Urine Specific [place] 1.017 Urine Ketones 1+ H Urine Nitrite NEGATIVE Urine Bilirubin NEGATIVE Urine Urobilinogen NEGATIVE Urine Leukocyte Esterase NEGATIVE Urine Hemoglobin NEGATIVE Urine Glucose NEGATIVE Urine Total Protein NEGATIVE Urine Opiates Screen Negative Urine Barbiturates Negative Urine Amphetamines Screen Negative Urine Benzodiazepines Screen Negative Urine Cocaine Screen Negative Urine Cannabinoids Negative Phenytoin (Dilantin) Level 20.5 *H White Blood Count 6.8 # Red Blood Count 5.21 Hemoglobin 14.5 Hematocrit 44.5 Mean Corpuscular Volume 85.4 Mean Corpuscular Hemoglobin 27.8 L Mean Corpuscular Hemoglobin Concent 32.6 Red Cell Distribution Width 11.7 Platelet Count 183 Mean Platelet Volume 9.4 Immature Granulocytes % 0.100 Neutrophils % 66.4 Lymphocytes % 24.4 Monocytes % 8.1 Eosinophils % 0.7 Basophils % 0.3 Nucleated Red Blood Cells % 0.0 Immature Granulocytes # 0.010 Neutrophils # 4.5 Lymphocytes # 1.7 Monocytes # 0.6 Eosinophils # 0.1 Basophils # 0.0 Nucleated Red Blood Cells # 0.0 Sodium Level 143 Potassium Level 3.8 Chloride Level 107 Carbon Dioxide Level 24 Anion Gap 12 Blood Urea Nitrogen 4 L Creatinine 0.81 Est Glomerular Filtrat Rate mL/min > 60 Glucose Level 101 Calcium Level 9.1 Total Bilirubin 0.9 Direct Bilirubin 0.00 Indirect Bilirubin 0.9 Aspartate Amino Transf (AST/SGOT) 19 Alanine Aminotransferase (ALT/SGPT) 17 Alkaline Phosphatase 110 Total Protein 7.7 # Albumin 4.5 Globulin 3.20 Albumin/Globulin Ratio 1.40 Medications Medication Current Medications Levetiracetam 100 ml @ 400 mls/hr Q12 IVPB Last administered on 03/21/19at 21:06; Admin Dose 400 MLS/HR; Start 03/21/19 at 15:00 Lorazepam (Ativan) 2 mg Q1H PRN IV SEIZURES Last administered on 03/21/19at 11:48; Admin Dose 2 MG; Start 03/21/19 at 05:30 Sodium Chloride 1,000 ml @ 75 mls/hr [id number] IV Last administered on 03/21/19at 17:58; Admin Dose 75 MLS/HR; Start 03/21/19 at 05:21 Acetaminophen (Tylenol Liquid) 650 mg Q6H PRN PO PAIN LEVEL 1-3 OR FEVER; Star t 03/21/19 at 05:30 Docusate Sodium (Colace) 100 mg Q12H PRN PO CONSTIPATION; Start 03/21/19 at 05:30 Bisacodyl (Dulcolax) 5 mg DAILY PRN PO CONSTIPATION; Start 03/21/19 at 05:30 Pantoprazole (Protonix Tab) 40 mg DAILY@06 PO Last administered on 03/21/19at 07:00; Admin Dose 40 MG; Start 03/21/19 at 06:00 Oxcarbazepine (Trileptal) 300 mg BID PO Last administered on 03/21/19at 07:00; Admin Dose 300 MG; Start 03/21/19 at 07:00 Phenytoin (Dilantin) 100 mg Q8 IV Last administered on 03/22/19at 06:19; Admin Dose 100 MG; Start 03/21/19 at 14:00 JAY BOUDREAUX MD March 22, 2019 08:42
[2019-03-22] MEDS: LORAZEPAM 2 MG INJ IV PRN ×3 (09:17→19:51)
[2019-03-22] MEDS: SOD CHLORIDE 0.9% 1,000 ML IV SCH ×2 (09:46→21:49)
[2019-03-22] MEDS: OXCARBAZEPINE 300 MG TAB PO SCH ×2 (09:46→20:33)
[2019-03-22] MEDS: LEVETIRACETAM 1500 MG (PMX) 100 ML IVPB SCH ×2 (09:46→20:32)
--- NOTE | 2019-03-22 15:06 | CONS ---
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 The clinical picture is consistent w/ convulsive status epilepticus.. He endorses medication noncompliance at home, the likely underlying precipit ant.. Head CT shows stable post-op changes UA neg; CXR neg P: OK to defer MRI brain for now Continue Dilantin maintenance; titrate prn to goal level 10-20 OK to resume Keppra/Trileptal per ops.. Ativan iv prn prolonged seizure > 5min Other management per primary Will follow clinically Consultation Date/Type/Reason Admit Date/Time March 21, 2019 at 05:18 Type of Consult Neurology Reason for Consultation status epilepticus Requesting Provider: PRATIMA ROQUE Date/Time of Note DATE: 03/22/19 TIME: 15:04 24 HR Interval Summary Free Text/Dictation Continues icu care Breakthrough seizures continue Exam Vital Signs Vitals Vital Signs Date Temp Pulse Resp B/P (MAP) Pulse Ox O2 O2 Flow FiO2 Time Delivery Rate 03/22/19 71 12:00 03/22/19 23 110/76 97 Room Air 11:00 (87) 03/22/19 97.5 08:00 03/21/19 2.0 07:00 Intake and Output 03/21/19 03/21/19 03/22/19 1515:00 23:00 07:00 IntakeIntake Total 600 ml 550 ml 600 ml OutputOutput Total 100 ml 550 ml 1800 ml BalanceBalance 500 ml 0 ml -1200 ml Exam PE: Gen Appearance: No Apparent Distress HEENT: Normocephalic Cardiovascular: Regular rate Abdomen: Soft Extremities: Dry NE: The patient was obtunded and nonverbal. Cranial nerve examination was limited by mental status. Pupils were equal and reactive to light. There was no afferent pupillary defect. Funduscopic examination was limited. Face was grossly symmetric, w/ present corneal and cough reflexes. Tone was normal. Muscle bulk was normal. I did not see fasciculations. The patient withdrew to noxious stimulation x 4. Coordination and gait testing was limited by mental status. Arm and leg reflexes were within normal limits and symmetric. Harris's sign was absent. Plantar responses were flexor. JL PHELPS March 22, 2019 15:06
[2019-03-23] VITALS (27 sets, daily range): BP systolic 97–131; BP diastolic 52–93; PULSE 41–91; RESP 12–29
[2019-03-23] MEDS: LORAZEPAM 2 MG INJ IV PRN (02:30)
[2019-03-23] MEDS: PANTOPRAZOLE (EC) 40 MG TAB PO SCH (05:21)
[2019-03-23] MEDS: PHENYTOIN 100 MG INJ IV SCH ×3 (05:24→22:09)
[2019-03-23] MEDS: OXCARBAZEPINE 300 MG TAB PO SCH ×2 (08:44→21:09)
[2019-03-23] MEDS: LEVETIRACETAM 1500 MG (PMX) 100 ML IVPB SCH ×2 (08:44→21:10)
--- NOTE | 2019-03-23 09:27 | PN ---
Date/Time of Note Date/Time of Note DATE: 03/23/19 TIME: 09:22 Assessment/Plan VTE Prophylaxis Risk score (from Ns)>0 risk: 2 SCD applied (from Ns): Yes Pharmacological prophylaxis: NA/contraindicated Pharm contraindication: low risk/ambulating Lines/Catheters IV C[facility]ter Type (from [facility]): Peripheral IV Urinary Cath still in place: No (CONDOM CATHETER) Assessment/Plan Assessment/Plan 1. Status epilepticus - still with breakthrough seizures overnight x2 - Neurology on board for medication management of recurrent seizures. Dilantin levels within goal. Currently on Keppra, Dilantin and Tegretol. During last admission for seizures, had difficulty finding an appropriate regime for the patient - Will monitor for further seizure activity. Ativan PRN 2. History of brain tumor, status post resection - history of meningioma - will check MRI when stable 3. Disposition - Continue monitoring in ICU given need for close monitoring in setting of recurrent frequent seizure activity Result Diagram: 03/23/19 0539 03/23/19 0539 Results 24hrs Laboratory Tests Test 03/22/19 09:32 03/23/19 05:39 Phenytoin (Dilantin) Level 19.7 19.5 White Blood Count 5.3 # Red Blood Count 4.88 Hemoglobin 13.6 L Hematocrit 41.3 L Mean Corpuscular Volume 84.6 Mean Corpuscular Hemoglobin 27.9 L Mean Corpuscular Hemoglobin Concent 32.9 Red Cell Distribution Width 11.6 Platelet Count 174 Mean Platelet Volume 9.4 Immature Granulocytes % 0.400 Neutrophils % 64.4 Lymphocytes % 23.7 Monocytes % 10.2 Eosinophils % 0.9 Basophils % 0.4 Nucleated Red Blood Cells % 0.0 Immature Granulocytes # 0.020 Neutrophils # 3.4 Lymphocytes # 1.3 Monocytes # 0.5 Eosinophils # 0.1 Basophils # 0.0 Nucleated Red Blood Cells # 0.0 Sodium Level 140 Potassium Level 3.8 Chloride Level 109 Carbon Dioxide Level 22 Anion Gap 9 Blood Urea Nitrogen 7 Creatinine 0.73 Est Glomerular Filtrat Rate mL/min > 60 Glucose Level 83 Calcium Level 8.8 Total Bilirubin 0.8 Direct Bilirubin 0.00 Indirect Bilirubin 0.8 Aspartate Amino Transf (AST/SGOT) 12 L Alanine Aminotransferase (ALT/SGPT) 20 Alkaline Phosphatase 102 Total Protein 6.6 # Albumin 3.6 Globulin 3.00 Albumin/Globulin Ratio 1.20 Subjective 24 Hr Interval Summary Free Text/Dictation Patient had 2 seizures overnight but none witnessed this am. Remains lethargic but answering simple questions appropriately. Exam/Review of Systems Exam Vitals Vital Signs Date Temp Pulse Resp B/P (MAP) Pulse Ox O2 O2 Flow FiO2 Time Delivery Rate 03/23/19 46 08:00 03/23/19 29 106/69 100 Room Air 07:00 (81) 03/23/19 97.6 04:00 03/21/19 2.0 07:00 Intake and Output 03/22/19 03/22/19 03/23/19 1515:00 23:00 07:00 IntakeIntake Total 860 ml 730 ml 660 ml OutputOutput Total 525 ml 275 ml 310 ml BalanceBalance 335 ml 455 ml 350 ml Exam General: Lethargic, no acute distress. Neck: Supple Chest: Nontender Lungs: Clear to auscultation bilaterally no crackles rales or wheezing Heart: Normal S1-S2, Regular rhythm and rate. No murmur, S3, or S4 Abdomen: Soft , nontender, nondistended , bowel sounds are present. Extremities: Normal to inspection, no edema no cyanosis Results Results 24hrs Laboratory Tests Test 03/22/19 09:32 03/23/19 05:39 Phenytoin (Dilantin) Level 19.7 19.5 White Blood Count 5.3 # Red Blood Count 4.88 Hemoglobin 13.6 L Hematocrit 41.3 L Mean Corpuscular Volume 84.6 Mean Corpuscular Hemoglobin 27.9 L Mean Corpuscular Hemoglobin Concent 32.9 Red Cell Distribution Width 11.6 Platelet Count 174 Mean Platelet Volume 9.4 Immature Granulocytes % 0.400 Neutrophils % 64.4 Lymphocytes % 23.7 Monocytes % 10.2 Eosinophils % 0.9 Basophils % 0.4 Nucleated Red Blood Cells % 0.0 Immature Granulocytes # 0.020 Neutrophils # 3.4 Lymphocytes # 1.3 Monocytes # 0.5 Eosinophils # 0.1 Basophils # 0.0 Nucleated Red Blood Cells # 0.0 Sodium Level 140 Potassium Level 3.8 Chloride Level 109 Carbon Dioxide Level 22 Anion Gap 9 Blood Urea Nitrogen 7 Creatinine 0.73 Est Glomerular Filtrat Rate mL/min > 60 Glucose Level 83 Calcium Level 8.8 Total Bilirubin 0.8 Direct Bilirubin 0.00 Indirect Bilirubin 0.8 Aspartate Amino Transf (AST/SGOT) 12 L Alanine Aminotransferase (ALT/SGPT) 20 Alkaline Phosphatase 102 Total Protein 6.6 # Albumin 3.6 Globulin 3.00 Albumin/Globulin Ratio 1.20 Medications Medication Current Medications Levetiracetam 100 ml @ 400 mls/hr Q12 IVPB Last administered on 03/23/19 08:44; Admin Dose 400 MLS/HR; Start 03/21/19 at 15:00 Lorazepam (Ativan) 2 mg Q1H PRN IV SEIZURES Last administered on 03/23/19 02:30; Admin Dose 2 MG; Start 03/21/19 at 05:30 Sodium Chloride 1,000 ml @ 75 mls/hr [id number] IV Last administered on 03/22/19 21:49; Admin Dose 75 MLS/HR; Start 03/21/19 at 05:21 Acetaminophen (Tylenol Liquid) 650 mg Q6H PRN PO PAIN LEVEL 1-3 OR FEVER; Start 03/21/19 at 05:30 Docusate Sodium (Colace) 100 mg Q12H PRN PO CONSTIPATION; Start 03/21/19 at 05:30 Bisacodyl (Dulcolax) 5 mg DAILY PRN PO CONSTIPATION; Start 03/21/19 at 05:30 Pantoprazole (Protonix Tab) 40 mg DAILY@06 PO Last administered on 03/23/19 05:21; Admin Dose 40 MG; Start 03/21/19 at 06:00 Oxcarbazepine (Trileptal) 300 mg BID PO Last administered on 03/23/19 08:44; Admin Dose 300 MG; Start 03/21/19 at 07:00 Phenytoin (Dilantin) 100 mg Q8 IV Last administered on 03/23/19 05:24; Admin Dose 100 MG; Start 03/21/19 at 14:00 JAY BOUDREAUX MD March 23, 2019 09:27
--- NOTE | 2019-03-23 13:42 | CONS ---
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 The clinical picture is consistent w/ convulsive status epilepticus...which is showing some clinical improvement.. He endorses medication noncompliance at home, the likely underlying precipitant.. Head CT shows stable post-op changes UA neg; CXR neg P: OK to defer MRI brain for now Continue Dilantin maintenance; titrate prn to goal level 10-20 OK to resume Keppra/Trileptal per ops.. Ativan iv prn prolonged seizure > 5min Other management per primary Will follow clinically Consultation Date/Type/Reason Admit Date/Time March 21, 2019 at 05:18 Type of Consult Neurology Reason for Consultation status epilepticus Requesting Provider: PRATIMA ROQUE Date/Time of Note DATE: 03/23/19 TIME: 13:41 24 HR Interval Summary Free Text/Dictation Continues icu care Last seizure 2 am He states that he is feeling better Exam Vital Signs Vitals Vital Signs Date Temp Pulse Resp B/P (MAP) Pulse Ox O2 O2 Flow FiO2 Time Delivery Rate 03/23/19 42 13 103/59 100 Room Air 13:00 (74) 03/23/19 98.9 12:00 03/21/19 2.0 07:00 Intake and Output 03/22/19 03/22/19 03/23/19 1515:00 23:00 07:00 IntakeIntake Total 860 ml 730 ml 660 ml OutputOutput Total 525 ml 275 ml 385 ml BalanceBalance 335 ml 455 ml 275 ml Exam PE: Gen Appearance: No Apparent Distress HEENT: Normocephalic Cardiovascular: Regular rate Abdomen: Soft Extremities: Dry NE: The patient was lethargic though oriented. Language was normal. Fund of knowledge was adequate. Pupils were equal and reactive to light. There was no afferent pupillary defect. Visual petit were normal. Funduscopic examination was limited. Extra-ocular movements were full. Ptosis was absent. There was no nystagmus. Facial sensation was normal. Face was symmetric with normal strength. Hearing was intact. Palate movements were normal. Neck strength was normal. There was normal tongue bulk and speed of movement. Tone was normal. Muscle bulk was normal. I did not see fasciculations. Arms and legs were symmetric. Vibration sensation was normal. Temperature and pinprick sensation was normal. Rapid alternating movements were normal. There was no dysmetria. There was no intention tremor. Gait was deferred due to bedrest. Arm and leg reflexes were 2+ and symmetric. Harris's sign was absent. Plantar responses were flexor. JL PHELPS March 23, 2019 13:42
--- NOTE | 2019-03-23 13:58 | RADRPT ---
Vent Rate: 60 bpm RR Interval: 1004 msec VA Interval: 171 msec QRS Duration: 92 msec QT Interval: 422 msec QTC Interval: 421 msec P-R-T [place]: 38 - 78 - 72 degrees Sinus arrhythmia...V-rate 44- 79, variation>10% Nonspecific T abnrm, anterolateral leads...T <-0.10mV, I aVL V2-V6 ST elev, probable normal early repol pattern...ST elevation, age<55 Electronically Signed By: Vahid Evans
[2019-03-23] MEDS: DEXTROSE 5%-0.45% NACL 1,000 ML IV SCH (15:09)
[2019-03-24] VITALS (18 sets, daily range): BP systolic 112–125; BP diastolic 59–79; PULSE 45–90; RESP 13–24
[2019-03-24] MEDS: DEXTROSE 5%-0.45% NACL 1,000 ML IV SCH (04:28)
[2019-03-24] MEDS: PANTOPRAZOLE (EC) 40 MG TAB PO SCH (05:26)
[2019-03-24] MEDS: PHENYTOIN 100 MG INJ IV SCH ×3 (05:26→20:38)
[2019-03-24] MEDS: LEVETIRACETAM 1500 MG (PMX) 100 ML IVPB SCH ×2 (08:46→20:38)
[2019-03-24] MEDS: OXCARBAZEPINE 300 MG TAB PO SCH ×2 (08:46→20:38)
--- NOTE | 2019-03-24 09:44 | PN ---
Date/Time of Note Date/Time of Note DATE: 03/24/19 TIME: 09:43 Objective Vitals Vital Signs Date Temp Pulse Resp B/P (MAP) Pulse Ox O2 O2 Flow FiO2 Time Delivery Rate 03/24/19 62 20 112/59 100 Room Air 09:00 (76) 03/24/19 98.2 08:00 03/21/19 2.0 07:00 Intake and Output 03/23/19 03/23/19 03/24/19 1515:00 23:00 07:00 IntakeIntake Total 160 ml 660 ml 660 ml OutputOutput Total 205 ml 1525 ml 300 ml BalanceBalance -45 ml -865 ml 360 ml Results Result Diagram: 03/24/19 0449 03/24/19 0449 Medications Medications Current Medications Levetiracetam 100 ml @ 400 mls/hr Q12 IVPB Last administered on 03/24/19 08:46; Admin Dose 400 MLS/HR; Start 03/21/19 at 15:00 Lorazepam (Ativan) 2 mg Q1H PRN IV SEIZURES Last administered on 03/23/19at 02:30; Admin Dose 2 MG; Start 03/21/19 at 05:30 Acetaminophen (Tylenol Liquid) 650 mg Q6H PRN PO PAIN LEVEL 1-3 OR FEVER; Start 03/21/19 at 05:30 Docusate Sodium (Colace) 100 mg Q12H PRN PO CONSTIPATION; Start 03/21/19 at 05:30 Bisacodyl (Dulcolax) 5 mg DAILY PRN PO CONSTIPATION; Start 03/21/19 at 05:30 Pantoprazole (Protonix Tab) 40 mg DAILY@06 PO Last administered on 03/24/19 05:26; Admin Dose 40 MG; Start 03/21/19 at 06:00 Oxcarbazepine (Trileptal) 300 mg BID PO Last administered on 03/24/19 08:46; Admin Dose 300 MG; Start 03/21/19 at 07:00 Phenytoin (Dilantin) 100 mg Q8 IV Last administered on 03/24/19 05:26; Admin Dose 100 MG; Start 03/21/19 at 14:00 Dextrose/Sodium Chloride 1,000 ml @ 75 mls/hr [id number] IV Last administered on 5/21/19at 04:28; Admin Dose 75 MLS/HR; Start 03/23/19 at 13:00 VTE Prophylaxis Risk score (from Ns)>0 risk: 1 SCD applied (from Ns): Yes Lines/Catheters IV Catheter Type: Hudson in Place: No Assessment/Plan Hospital Course Subjective No seizure events overnight, patient does follow commands however does seem sleepy Objective Physical exam General: Patient is laying in bed and answers questions appropriately but slowly Mentation: Patient is alert and oriented but lethargic Head: Normocephalic atraumatic Eyes: EOMI, pupils reactive to light Neck: Supple, nontender, midline Respiratory: Clear to auscultation bilaterally Cardiovascular: regular rate, no obvious murmurs Gastrointestinal: non-tender to palpation, bowel sounds heard. Neurological: Moves all extremities spontaneously Skin: No new skin lesions Assessment/Plan 1. Status epilepticus -No seizures for 36 hours - Neurology on board for medication management of recurrent seizures. Dilantin levels within goal. Currently on Keppra, Dilantin and Tegretol. During last admission for seizures, had difficulty finding an appropriate regime for the patient - Will monitor for further seizure activity. Ativan PRN 2. History of brain tumor, status post resection - history of meningioma -MRI ordered 3. Disposition -Per neurology, safe for telemetry transfer -We will get speech therapist to see patient to restart diet -MRI ordered -More than 40 minutes of critical care time spent on this encounter LUKAS CARRERA March 24, 2019 09:44
--- NOTE | 2019-03-24 10:08 | CONS ---
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 The clinical picture is consistent w/ convulsive status epilepticus...which is showing some clinical improvement.. He endorses medication noncompliance at home, the likely underlying precipitant.. Head CT shows stable post-op changes UA neg; CXR neg P: Agree w/ MRI Brain w/ and w/o for further characterization (missed outpatient appt) Continue Dilantin maintenance as ordered; titrate prn to goal level 10-20 Continue Keppra/Trileptal per ops.. Ativan iv prn prolonged seizure > 5min Neurologically stable for transfer to telemetry May resume diet Other management per primary Will follow clinically Consultation Date/Type/Reason Admit Date/Time March 21, 2019 at 05:18 Type of Consult Neurology Reason for Consultation status epilepticus Requesting Provider: PRATIMA ROQUE Date/Time of Note DATE: 03/24/19 TIME: 10:05 24 HR Interval Summary Free Text/Dictation No addnl seizures Exam Vital Signs Vitals Vital Signs Date Temp Pulse Resp B/P (MAP) Pulse Ox O2 O2 Flow FiO2 Time Delivery Rate 03/24/19 62 20 112/59 100 Room Air 09:00 (76) 03/24/19 98.2 08:00 03/21/19 2.0 07:00 Intake and Output 03/23/19 03/23/19 03/24/19 1515:00 23:00 07:00 IntakeIntake Total 160 ml 660 ml 660 ml OutputOutput Total 205 ml 1525 ml 300 ml BalanceBalance -45 ml -865 ml 360 ml Exam PE: Gen Appearance: No Apparent Distress HEENT: Normocephalic Cardiovascular: Regular rate Abdomen: Soft Extremities: Dry NE: The patient was alert and oriented. Language was normal. Fund of knowledge was adequate. Pupils were equal and reactive to light. There was no afferent pupillary defect. Visual petit were normal. Funduscopic examination was limited. Eyes were dys conjugate. Extra-ocular movements were full. Ptosis was absent. There was no nystagmus. Facial sensation was normal. Face was symmetric with normal strength. Hearing was intact. Palate movements were normal. Neck strength was normal. There was normal tongue bulk and speed of movement. Tone was normal. Muscle bulk was normal. I did not see fasciculations. Arms and legs were symmetric. Vibration sensation was normal. Temperature and pinprick sensation was normal. Rapid alternating movements were normal. There was no dysmetria. There was no intention tremor. Gait was deferred due to bedrest. Arm and leg reflexes were symmetric. Harris's sign was absent. Plantar responses were flexor. JL PHELPS March 24, 2019 10:07
[2019-03-25] VITALS (11 sets, daily range): BP systolic 105–125; BP diastolic 57–74; PULSE 20–77; RESP 18–20
[2019-03-25] MEDS: PANTOPRAZOLE (EC) 40 MG TAB PO SCH (05:26)
[2019-03-25] MEDS: PHENYTOIN 100 MG INJ IV SCH ×3 (05:26→20:20)
[2019-03-25] MEDS: OXCARBAZEPINE 300 MG TAB PO SCH ×2 (08:51→20:19)
[2019-03-25] MEDS: LEVETIRACETAM 1500 MG (PMX) 100 ML IVPB SCH ×2 (08:52→20:20)
--- NOTE | 2019-03-25 12:10 | CONS ---
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 The clinical picture is consistent w/ convulsive status epilepticus...which is showing some clinical improvement.. He endorses medication noncompliance at home, the likely underlying precipitant.. Head CT shows stable post-op changes UA neg; CXR neg P: Await MRI Brain w/ and w/o for further characterization (missed outpatient appt) Continue Dilantin maintenance as ordered; titrate prn to goal level 10-20 Continue Keppra/Trileptal per ops.. Ativan iv prn prolonged seizure > 5min Other management per primary Will follow clinically Consultation Date/Type/Reason Admit Date/Time March 21, 2019 at 05:18 Type of Consult Neurology Requesting Provider: PRATIMA ROQUE Date/Time of Note DATE: 03/25/19 TIME: 12:10 24 HR Interval Summary Free Text/Dictation Continues acute care. Exam Vital Signs Vitals Vital Signs Date Temp Pulse Resp B/P (MAP) Pulse Ox O2 O2 Flow FiO2 Time Delivery Rate 03/25/19 98.2 66 20 105/59 96 Room Air 11:43 (74) 03/21/19 2.0 07:00 Intake and Output 03/24/19 03/24/19 03/25/19 1515:00 23:00 07:00 IntakeIntake Total 511.25 ml 500 ml 800 ml OutputOutput Total 225 ml 1300 ml 600 ml BalanceBalance 286.25 ml -800 ml 200 ml Exam PE: Gen Appearance: No Apparent Distress HEENT: Normocephalic Cardiovascular: Regular rate Abdomen: Soft Extremities: Dry NE: The patient was alert and oriented. Language was normal. Fund of knowledge was adequate. Pupils were equal and reactive to light. There was no afferent pupillary defect. Visual petit were normal. Funduscopic examination was limited. Eyes were dysconjugate. Extra-ocular movements were full. Ptosis was absent. There was no nystagmus. Facial sensation was normal. Face was symmetric with normal strength. Hearing was intact. Palate movements were normal. Neck strength was normal. There was normal tongue bulk and speed of movement. Tone was normal. Muscle bulk was normal. I did not see fasciculations. Arms and legs were symmetric. Vibration sensation was normal. Temperature and pinprick sensation was normal. Rapid alternating movements were normal. There was no dysmetria. There was no intention tremor. Gait was deferred due to bedrest. Arm and leg reflexes were symmetric. Harris's sign was absent. Plantar responses were flexor. ZA VERDUGO NP March 25, 2019 12:10
--- NOTE | 2019-03-25 14:37 | PN ---
Date/Time of Note Date/Time of Note DATE: 03/25/19 TIME: 14:36 Objective Vitals Vital Signs Date Temp Pulse Resp B/P (MAP) Pulse Ox O2 O2 Flow FiO2 Time Delivery Rate 03/25/19 53 12:00 03/25/19 98.2 20 105/59 96 Room Air 11:43 (74) 03/21/19 2.0 07:00 Intake and Output 03/24/19 03/24/19 03/25/19 1515:00 23:00 07:00 IntakeIntake Total 511.25 ml 500 ml 800 ml OutputOutput Total 225 ml 1300 ml 600 ml BalanceBalance 286.25 ml -800 ml 200 ml Results Result Diagram: 03/25/1953503/25/19535 Medications Medications Current Medications Levetiracetam 100 ml @ 400 mls/hr Q12 IVPB Last administered on 03/25/19 08:52; Admin Dose 400 MLS/HR; Start 03/21/19 at 15:00 Lorazepam (Ativan) 2 mg Q1H PRN IV SEIZURES Last administered on 03/23/19 02:30; Admin Dose 2 MG; Start 03/21/19 at 05:30 Acetaminophen (Tylenol Liquid) 650 mg Q6H PRN PO PAIN LEVEL 1-3 OR FEVER; Start 03/21/19 at 05:30 Docusate Sodium (Colace) 100 mg Q12H PRN PO CONSTIPATION; Start 03/21/19 at 05:30 Bisacodyl (Dulcolax) 5 mg DAILY PRN PO CONSTIPATION; Start 03/21/19 at 05:30 Pantoprazole (Protonix Tab) 40 mg DAILY@06 PO Last administered on 03/25/19 05:26; Admin Dose 40 MG; Start 03/21/19 at 06:00 Oxcarbazepine (Trileptal) 300 mg BID PO Last administered on 03/25/19 08:51; Admin Dose 300 MG; Start 03/21/19 at 07:00 Phenytoin (Dilantin) 100 mg Q8 IV Last administered on 03/25/19 05:26; Admin Dose 100 MG; Start 03/21/19 at 14:00 VTE Prophylaxis Risk score (from Nsg)>0 risk: 1 SCD applied (from Nsg): Yes Lines/Catheters IV Catheter Type: Hudson in Place: No Assessment/Plan Hospital Course Subjective Patient still sleepy but states he feels better than yesterday Objective Physical exam General: Patient is laying in bed and answers questions appropriately Mentation: Patient is alert and oriented but mildly lethargic Head: Normocephalic atraumatic Eyes: EOMI, pupils reactive to light Neck: Supple, nontender, midline Respiratory: Clear to auscultation bilaterally Cardiovascular: regular rate, no obvious murmurs Gastrointestinal: non-tender to palpation, bowel sounds heard. Neurological: Moves all extremities spontaneously Skin: No new skin lesions Assessment/Plan 1. Status epilepticus -No seizures for the past few days - Neurology on board for medication management of recurrent seizures. Dilantin levels within goal. Currently on Keppra, Dilantin and Tegretol. During last admission for seizures, had difficulty finding an appropriate regime for the patient - Will monitor for further seizure activity. Ativan PRN 2. History of brain tumor, status post resection - history of meningioma -MRI ordered 3. Disposition -MRI ordered -We will need to finalize neurology work-up before discharge as patient will likely need to follow-up with [facility], health social work professor also on board to help patient with reinstating his insurance. LUKAS CARRERA March 25, 2019 14:37
[2019-03-26] VITALS (12 sets, daily range): BP systolic 109–125; BP diastolic 57–74; PULSE 60–86; RESP 17–19
[2019-03-26] MEDS: PHENYTOIN 100 MG INJ IV SCH ×2 (06:12→20:57)
[2019-03-26] MEDS: PANTOPRAZOLE (EC) 40 MG TAB PO SCH (06:12)
[2019-03-26] MEDS: OXCARBAZEPINE 300 MG TAB PO SCH ×2 (08:28→20:58)
[2019-03-26] MEDS: LEVETIRACETAM 1500 MG (PMX) 100 ML IVPB SCH ×2 (08:29→20:58)
--- NOTE | 2019-03-26 15:15 | CONS ---
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 The clinical picture is consistent w/ convulsive status epilepticus...which is showing some clinical improvement.. He endorses medication noncompliance at home, the likely underlying precipitant.. MRI brain shows stable post-op changes UA neg; CXR neg P: Hold dilantin for now; resume dilantin at 100 BID when level < 20 Continue Keppra/Trileptal per ops.. Ativan iv prn prolonged seizure > 5min Other management per primary Will follow clinically Consultation Date/Type/Reason Admit Date/Time March 21, 2019 at 05:18 Type of Consult Neurology Requesting Provider: PRATIMA ORQUE Date/Time of Note DATE: 03/26/19 TIME: 15:15 24 HR Interval Summary Free Text/Dictation Continues acute care. The pt is reportedly more lethargic today. Dilantin level supratherapeutic. Exam Vital Signs Vitals Vital Signs Date Temp Pulse Resp B/P (MAP) Pulse Ox O2 O2 Flow FiO2 Time Delivery Rate 03/26/19 80 12:00 03/26/19 97.6 18 111/57 94 Room Air 11:20 (75) Intake and Output 03/25/19 03/25/19 03/26/19 1515:00 23:00 07:00 IntakeIntake Total 600 ml 500 ml OutputOutput Total 200 ml 250 ml BalanceBalance 400 ml 250 ml Exam PE: Gen Appearance: No Apparent Distress HEENT: Normocephalic Cardiovascular: Regular rate Abdomen: Soft Extremities: Dry NE: The patient was alert and oriented. Language was normal. Fund of knowledge was adequate. Pupils were equal and reactive to light. There was no afferent pupillary defect. Visual petit were normal. Funduscopic examination was limited. Eyes were dysconjugate. Extra-ocular movements were full. Ptosis was absent. There was no nystagmus. Facial sensation was normal. Face was symmetric with normal strength. Hearing was intact. Palate movements were normal. Neck strength was normal. There was normal tongue bulk and speed of movement. Tone was normal. Muscle bulk was normal. I did not see fasciculations. Arms and legs were symmetric. Vibration sensation was normal. Temperature and pinprick sensation was normal. Rapid alternating movements were normal. There was no dysmetria. There was no intention tremor. Gait was deferred due to bedrest. Arm and leg reflexes were symmetric. Harris's sign was absent. Plantar responses were flexor. ZA VERDUGO NP March 26, 2019 15:15
--- NOTE | 2019-03-26 15:44 | PN ---
Date/Time of Note Date/Time of Note DATE: 03/26/19 TIME: 15:43 Objective Vitals Vital Signs Date Temp Pulse Resp B/P (MAP) Pulse Ox O2 O2 Flow FiO2 Time Delivery Rate 03/26/19 98.4 86 18 121/72 95 Room Air 15:23 (88) Intake and Output 03/25/19 03/25/19 03/26/19 1515:00 23:00 07:00 IntakeIntake Total 600 ml 500 ml OutputOutput Total 200 ml 250 ml BalanceBalance 400 ml 250 ml Results Result Diagram: 03/26/19 0552 03/26/19 0552 Medications Medications Current Medications Levetiracetam 100 ml @ 400 mls/hr Q12 IVPB Last administered on 03/26/19at 08:29; Admin Dose 400 MLS/HR; Start 03/21/19 at 15:00 Lorazepam (Ativan) 2 mg Q1H PRN IV SEIZURES Last administered on 03/23/19at 02:30; Admin Dose 2 MG; Start 03/21/19 at 05:30 Acetaminophen (Tylenol Liquid) 650 mg Q6H PRN PO PAIN LEVEL 1-3 OR FEVER; Sta rt 03/21/19 at 05:30 Docusate Sodium (Colace) 100 mg Q12H PRN PO CONSTIPATION; Start 03/21/19 at 05: 30 Bisacodyl (Dulcolax) 5 mg DAILY PRN PO CONSTIPATION; Start 03/21/19 at 05:30 Pantoprazole (Protonix Tab) 40 mg DAILY@06 PO Last administered on 03/26/19at 06:12; Admin Dose 40 MG; Start 03/21/19 at 06:00 Oxcarbazepine (Trileptal) 300 mg BID PO Last administered on 03/26/19at 08:28; Admin Dose 300 MG; Start 03/21/19 at 07:00 VTE Prophylaxis Risk score (from Nsg)>0 risk: 1 SCD applied (from Nsg): Yes Lines/Catheters IV Catheter Type: Hudson in Place: No Assessment/Plan Hospital Course Subjective Patient still sleepy but states he still feels better than yesterday Objective Physical exam General: Patient is laying in bed and answers questions appropriately Mentation: Patient is alert and oriented but mildly lethargic Head: Normocephalic atraumatic Eyes: EOMI, pupils reactive to light Neck: Supple, nontender, midline Respiratory: Clear to auscultation bilaterally Cardiovascular: regular rate, no obvious murmurs Gastrointestinal: non-tender to palpation, bowel sounds heard. Neurological: Moves all extremities spontaneously Skin: No new skin lesions Assessment/Plan 1. Status epilepticus -No seizures for the past few days - Neurology on board for medication management of recurrent seizures. Dilantin levels within goal. Currently on Keppra, Dilantin and Tegretol. During last admission for seizures, had difficulty finding an appropriate regime for the patient - Will monitor for further seizure activity. Ativan PRN 2. History of brain tumor, status post resection - history of meningioma -MRI noted, no new changes, patient will be provided with CD and read so that he can take to the outpatient physicians and neurosurgeon. Lethargy -Patient is supratherapeutic for phenytoin, held per neurology recommendations, will restart when safe, will continue to adjust medications as needed. 3. Disposition -MRI ordered -We will need to finalize neurology work-up before discharge as patient will likely need to follow-up with [facility], elementary school social worker also on board to help patient with reinstating his insurance. LUKAS CARRERA March 26, 2019 15:44
[2019-03-27] VITALS (12 sets, daily range): BP systolic 105–131; BP diastolic 56–71; PULSE 51–91; RESP 18–20
[2019-03-27] MEDS: PANTOPRAZOLE (EC) 40 MG TAB PO SCH (05:52)
[2019-03-27] MEDS: OXCARBAZEPINE 300 MG TAB PO SCH ×2 (08:55→20:30)
[2019-03-27] MEDS: LEVETIRACETAM 1500 MG (PMX) 100 ML IVPB SCH ×2 (08:55→20:34)
[2019-03-27] MEDS: PHENYTOIN 100 MG INJ IV SCH ×2 (08:55→20:30)
--- NOTE | 2019-03-27 11:58 | PN ---
Date/Time of Note Date/Time of Note DATE: 03/27/19 TIME: 11:57 Objective Vitals Vital Signs Date Temp Pulse Resp B/P (MAP) Pulse Ox O2 O2 Flow FiO2 Time Delivery Rate 03/27/19 98.3 70 20 105/58 98 09:47 (74) 03/26/19 Room Air 15:23 Intake and Output 03/26/19 03/26/19 03/27/19 1515:00 23:00 07:00 IntakeIntake Total 500 ml 600 ml BalanceBalance 500 ml 600 ml Results Result Diagram: 03/27/1952003/27/19520 Medications Medications Current Medications Levetiracetam 100 ml @ 400 mls/hr Q12 IVPB Last administered on 03/27/19 08:55; Admin Dose 400 MLS/HR; Start 03/21/19 at 15:00 Lorazepam (Ativan) 2 mg Q1H PRN IV SEIZURES Last administered on 03/23/19at 02:30; Admin Dose 2 MG; Start 03/21/19 at 05:30 Acetaminophen (Tylenol Liquid) 650 mg Q6H PRN PO PAIN LEVEL 1-3 OR FEVER; Start 03/21/19 at 05:30 Docusate Sodium (Colace) 100 mg Q12H PRN PO CONSTIPATION; Start 03/21/19 at 05:30 Bisacodyl (Dulcolax) 5 mg DAILY PRN PO CONSTIPATION; Start 03/21/19 at 05:30 Pantoprazole (Protonix Tab) 40 mg DAILY@06 PO Last administered on 03/27/19 05:52; Admin Dose 40 MG; Start 03/21/19 at 06:00 Oxcarbazepine (Trileptal) 300 mg BID PO Last administered on 03/27/19 08:55; Admin Dose 300 MG; Start 03/21/19 at 07:00 Phenytoin (Dilantin) 100 mg BID IV Last administered on 03/27/19 08:55; Admin Dose 100 MG; Start 03/26/19 at 21:00 VTE Prophylaxis Risk score (from Nsg)>0 risk: 3 SCD applied (from Nsg): Yes Lines/Catheters IV Catheter Type: Hudson in Place: No Assessment/Plan Hospital Course Subjective Patient much more awake than yesterday, no acute events overnight Objective Physical exam General: Patient is laying in bed and answers questions appropriately Mentation: Patient is alert and oriented Head: Normocephalic atraumatic Eyes: EOMI, pupils reactive to light Neck: Supple, nontender, midline Respiratory: Clear to auscultation bilaterally Cardiovascular: regular rate, no obvious murmurs Gastrointestinal: non-tender to palpation, bowel sounds heard. Neurological: Moves all extremities spontaneously Skin: No new skin lesions Assessment/Plan 1. Status epilepticus -No seizures for the past few days - Neurology on board for medication management of recurrent seizures. Dilantin levels within goal. Currently on Keppra, Dilantin and Tegretol. During last admission for seizures, had difficulty finding an appropriate regime for the patient - Will monitor for further seizure activity. Ativan PRN 2. History of brain tumor, status post resection - history of meningioma -MRI noted, no new changes, patient will be provided with CD and read so that he can take to the outpatient physicians and neurosurgeon. Lethargy -Patient was supratherapeutic for phenytoin, held per neurology recommendations, will restart when safe, will continue to adjust medications as needed. 3. Disposition -MRI noted -We will need to finalize neurology work-up before discharge as patient will likely need to follow-up with [facility], licensed clinical social worker also on board to help patient with reinstating his insurance. Patient's medications will continued to need to be titrated by neurology before discharge as patient LUKAS CARRERA March 27, 2019 11:58
--- NOTE | 2019-03-27 12:44 | CONS ---
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 The clinical picture is consistent w/ convulsive status epilepticus...which is showing some clinical improvement.. He endorses medication noncompliance at home, the likely underlying precipitant.. MRI brain shows stable post-op changes UA neg; CXR neg P: Resume dilantin at 100 BID for now. Recheck level in am; titrate PRN to goal level 10-20 Continue Keppra/Trileptal per ops.. Ativan iv prn prolonged seizure > 5min Other management per primary Will follow clinically Consultation Date/Type/Reason Admit Date/Time March 21, 2019 at 05:18 Type of Consult Neurology Requesting Provider: PRATIMA ROQUE Date/Time of Note DATE: 03/27/19 TIME: 12:44 24 HR Interval Summary Free Text/Dictation Continues acute care. Pt states that he feels more awake today. No seizures reported. Exam Vital Signs Vitals Vital Signs Date Temp Pulse Resp B/P (MAP) Pulse Ox O2 O2 Flow FiO2 Time Delivery Rate 03/27/19 68 12:08 03/27/19 98.3 20 105/58 98 09:47 (74) 03/26/19 Room Air 15:23 Intake and Output 03/26/19 03/26/19 03/27/19 1515:00 23:00 07:00 IntakeIntake Total 500 ml 600 ml BalanceBalance 500 ml 600 ml Exam PE: Gen Appearance: No Apparent Distress HEENT: Normocephalic Cardiovascular: Regular rate Abdomen: Soft Extremities: Dry NE: The patient was alert and oriented. Language was normal. Fund of knowledge was adequate. Pupils were equal and reactive to light. There was no afferent pupillary defect. Visual petit were normal. Funduscopic examination was limited. Eyes were dysconjugate. Extra-ocular movements were full. Ptosis was absent. There was no nystagmus. Facial sensation was normal. Face was symmetric with normal strength. Hearing was intact. Palate movements were normal. Neck strength was normal. There was normal tongue bulk and speed of movement. Tone was normal. Muscle bulk was normal. I did not see fasciculations. Arms and legs were symmetric. Vibration sensation was normal. Temperature and pinprick sensation was normal. Rapid alternating movements were normal. There was no dysmetria. There was no intention tremor. Gait was deferred due to bedrest. Arm and leg reflexes were symmetric. Harris's sign was absent. Plantar responses were flexor. ZA VERDUGO NP March 27, 2019 12:44
[2019-03-27] MEDS: LORAZEPAM 2 MG INJ IV PRN (23:46)
[2019-03-28] VITALS (11 sets, daily range): BP systolic 94–119; BP diastolic 52–69; PULSE 55–102; RESP 18–19
[2019-03-28] MEDS: PANTOPRAZOLE (EC) 40 MG TAB PO SCH (06:19)
[2019-03-28] MEDS: PHENYTOIN 100 MG INJ IV SCH (07:54)
[2019-03-28] MEDS: OXCARBAZEPINE 300 MG TAB PO SCH ×2 (07:54→20:10)
[2019-03-28] MEDS: LEVETIRACETAM 1500 MG (PMX) 100 ML IVPB SCH ×2 (07:54→21:44)
--- NOTE | 2019-03-28 10:24 | CONS ---
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 The clinical picture is consistent w/ convulsive status epilepticus...which is showing some clinical improvement.. He endorses medication noncompliance at home, the likely underlying precipitant.. MRI brain shows stable post-op changes UA neg; CXR neg P: Hold dilantin Load with depakote 1g and start maintenance 500mg BID; titrate PRN to goal level 50-100 Continue Keppra/Trileptal per ops.. Ativan iv prn prolonged seizure > 5min or for cluster episodes Other management per primary Will follow clinically Consultation Date/Type/Reason Admit Date/Time March 21, 2019 at 05:18 Type of Consult Neurology Requesting Provider: PRATIMA ROQUE Date/Time of Note DATE: 03/28/19 TIME: 10:24 24 HR Interval Summary Free Text/Dictation Continues acute care. Pt reportedly had 4 seizure episodes this morning. Exam Vital Signs Vitals Vital Signs Date Temp Pulse Resp B/P (MAP) Pulse Ox O2 O2 Flow FiO2 Time Delivery Rate 03/28/19 79 08:12 03/28/19 97.7 18 94/52 (66) 95 07:08 03/28/19 Room Air 04:00 Intake and Output 03/27/19 03/27/19 03/28/19 1515:00 23:00 07:00 IntakeIntake Total 240 ml 460 ml 600 ml BalanceBalance 240 ml 460 ml 600 ml Exam PE: Gen Appearance: No Apparent Distress HEENT: Normocephalic Cardiovascular: Regular rate Abdomen: Soft Extremities: Dry NE: The patient was lethargic, though easily arousable. Language was normal. Fund of knowledge was adequate. Pupils were equal and reactive to light. There was no afferent pupillary defect. Visual petit were normal. Funduscopic examination was limited. Eyes were dysco njugate. Extra-ocular movements were full. Ptosis was absent. There was no nystagmus. Facial sensation was normal. Face was symmetric with normal strength. Hearing was intact. Palate movements were normal. Neck strength was normal. There was normal tongue bulk and speed of movement. Tone was normal. Muscle bulk was normal. I did not see fasciculations. Arms and legs were symmetric. Vibration sensation was normal. Temperature and pinprick sensation was normal. Rapid alternating movements were normal. There was no dysmetria. There was no intention tremor. Gait was deferred due to bedrest. Arm and leg reflexes were symmetric. Harris's sign was absent. Plantar responses were flexor. ZA VERDUGO NP March 28, 2019 10:24
--- NOTE | 2019-03-28 11:16 | PN ---
Date/Time of Note Date/Time of Note DATE: 03/28/19 TIME: 11:15 Assessment/Plan VTE Prophylaxis Risk score (from Ns)>0 risk: 2 SCD applied (from Ns): Yes Pharmacological prophylaxis: NA/contraindicated Pharm contraindication: low risk/ambulating Lines/Catheters IV [facility] (from [facility] Peripheral IV Urinary Cath still in place: No Assessment/Plan Hospital Course SUBJECTIVE: Denies any headache. OBJECTIVE: Physical Exam General: Adequately build 33 year-old male lying in bed in no apparent distress. HEENT: Normocephalic. Surgical scar on the head. Eyes: Anicteric sclerae, conjunctivae clear. ENT: Nasal septum midline, oral mucosa moist. Neck supple, no JVD noticed. Respiratory: Bilaterally clear breath sounds. No use of accessory muscles of respiration. No adventitious breath sounds. Cardiovascular: S1, S2 heard. Regular rate and rhythm. Abdomen: Soft, nontender, and nondistended. Bowel sounds positive in all 4 quadrants. Genitourinary: Deferred. Extremities: No cyanosis, no clubbing, no edema. Peripheral pulses palpable. Neurologic: Cranial nerves II through XII grossly intact. The patient is awake, alert, and oriented. Skin: Normal skin turgor. No skin rashes. Labs & Vitals per chart ASSESSMENT & PLAN 33-year-old male with history of meningioma status post resection with underlying refractory seizure disorder who presented to the ER for evaluation of multiple seizures and was admitted to inpatient setting. 1. Seizure disorder. -Being followed by neurology. -Continue Dilantin, Keppra, and Trileptal. -PRN lorazepam for breakthrough seizures. -Seizure precautions. 2. History of brain tumor, status post resection. -Brain MRI results noted. 3. Fluids, electrolytes, and nutrition. -Mechanical soft diet. 4. DVT prophylaxis. -Bilateral SCDs. 5. Plan. -Continue anticonvulsants. -Pending [facility]. -The patient needs anticonvulsants upon discharge. The patient was seen in collaboration with Dr. Caldwell. Result Diagram: 03/28/19 0509 03/28/19 0509 Results 24hrs Laboratory Tests Test 03/27/19 15:29 03/28/19 05:09 Phenytoin (Dilantin) Level 19.7 18.0 White Blood Count 4.6 L Red Blood Count 5.42 Hemoglobin 15.0 Hematocrit 45.5 Mean Corpuscular Volume 83.9 Mean Corpuscular Hemoglobin 27.7 L Mean Corpuscular Hemoglobin Concent 33.0 Red Cell Distribution Width 11.4 L Platelet Count 217 Mean Platelet Volume 9.0 Immature Granulocytes % 0.200 Neutrophils % 42.0 Lymphocytes % 42.2 Monocytes % 12.1 H Eosinophils % 2.6 Basophils % 0.9 Nucleated Red Blood Cells % 0.0 Immature Granulocytes # 0.010 Neutrophils # 1.9 Lymphocytes # 1.9 Monocytes # 0.6 Eosinophils # 0.1 Basophils # 0.0 Nucleated Red Blood Cells # 0.0 Sodium Level 138 Potassium Level 4.5 Chloride Level 103 Carbon Dioxide Level 26 Anion Gap 9 Blood Urea Nitrogen 18 # Creatinine 0.85 Est Glomerular Filtrat Rate mL/min > 60 Glucose Level 94 Calcium Level 9.2 Phosphorus Level 4.7 Magnesium Level 2.1 Exam/Review of Systems Exam Vitals Vital Signs Date Temp Pulse Resp B/P (MAP) Pulse Ox O2 O2 Flow FiO2 Time Delivery Rate 03/28/19 79 08:12 03/28/19 97.7 18 94/52 (66) 95 07:08 03/28/19 Room Air 04:00 Intake and Output 03/27/19 03/27/19 03/28/19 1515:00 23:00 07:00 IntakeIntake Total 240 ml 460 ml 600 ml BalanceBalance 240 ml 460 ml 600 ml Results Results 24hrs Laboratory Tests Test 03/27/19 15:29 03/28/19 05:09 Phenytoin (Dilantin) Level 19.7 18.0 White Blood Count 4.6 L Red Blood Count 5.42 Hemoglobin 15.0 Hematocrit 45.5 Mean Corpuscular Volume 83.9 Mean Corpuscular Hemoglobin 27.7 L Mean Corpuscular Hemoglobin Concent 33.0 Red Cell Distribution Width 11.4 L Platelet Count 217 Mean Platelet Volume 9.0 Immature Granulocytes % 0.200 Neutrophils % 42.0 Lymphocytes % 42.2 Monocytes % 12.1 H Eosinophils % 2.6 Basophils % 0.9 Nucleated Red Blood Cells % 0.0 Immature Granulocytes # 0.010 Neutrophils # 1.9 Lymphocytes # 1.9 Monocytes # 0.6 Eosinophils # 0.1 Basophils # 0.0 Nucleated Red Blood Cells # 0.0 Sodium Level 138 Potassium Level 4.5 Chloride Level 103 Carbon Dioxide Level 26 Anion Gap 9 Blood Urea Nitrogen 18 # Creatinine 0.85 Est Glomerular Filtrat Rate mL/min > 60 Glucose Level 94 Calcium Level 9.2 Phosphorus Level 4.7 Magnesium Level 2.1 Medications Medication Current Medications Levetiracetam 100 ml @ 400 mls/hr Q12 IVPB Last administered on 03/28/19 07:54; Admin Dose 400 MLS/HR; Start 03/21/19 at 15:00 Acetaminophen (Tylenol Liquid) 650 mg Q6H PRN PO PAIN LEVEL 1-3 OR FEVER; Start 03/21/19 at 05:30 Docusate Sodium (Colace) 100 mg Q12H PRN PO CONSTIPATION; Start 03/21/19 at 05:30 Bisacodyl (Dulcolax) 5 mg DAILY PRN PO CONSTIPATION; Start 03/21/19 at 05:30 Pantoprazole (Protonix Tab) 40 mg DAILY@06 PO Last administered on 03/28/19 06:19; Admin Dose 40 MG; Start 03/21/19 at 06:00 Oxcarbazepine (Trileptal) 300 mg BID PO Last administered on 03/28/19at 07:54; Admin Dose 300 MG; Start 03/21/19 at 07:00 Phenytoin (Dilantin) 100 mg BID IV Last administered on 03/28/19 07:54; Admin Dose 100 MG; Start 03/26/19 at 21:00 Lorazepam (Ativan) 1 mg Q10MIN PRN IV SEIZURES; Start 03/28/19 at 11:00 RALPH GIPSON NP March 28, 2019 11:16
[2019-03-28] MEDS: LORAZEPAM 2 MG INJ IV PRN ×2 (11:37→16:26)
[2019-03-28] MEDS ORDERED: VALPROATE INJ 1,000 MG in SOD CHLORIDE 0.9% 100 ML IVPB ONE (14:00)
[2019-03-28] MEDS: VALPROATE INJ 500 MG in SOD CHLORIDE 0.9% 50 ML IVPB SCH (20:10)
[2019-03-29] VITALS (26 sets, daily range): BP systolic 111–146; BP diastolic 61–90; PULSE 72–102; RESP 18–20
[2019-03-29] MEDS: PANTOPRAZOLE (EC) 40 MG TAB PO SCH (05:57)
--- NOTE | 2019-03-29 07:30 | PN ---
Date/Time of Note Date/Time of Note DATE: 03/29/19 TIME: 07:30 Assessment/Plan VTE Prophylaxis Risk score (from [facility])>0 risk: 2 SCD applied (from [facility]): Yes Pharmacological prophylaxis: NA/contraindicated Pharm contraindication: other Lines/Catheters IV [facility] Type (from [facility] Mid Line Urinary Cath still in place: No Assessment/Plan Hospital Course SUBJECTIVE: The patient had multiple episodes of seizures last night. OBJECTIVE: Physical Exam General: Adequately build 33 year-old male lying in bed in no apparent distress. HEENT: Normocephalic. Surgical scar on the head. Eyes: Anicteric sclerae, conjunctivae clear. ENT: Nasal septum midline, oral mucosa moist. Neck supple, no JVD noticed. Respiratory: Bilaterally clear breath sounds. No use of accessory muscles of respiration. No adventitious breath sounds. Cardiovascular: S1, S2 heard. Regular rate and rhythm. Abdomen: Soft, nontender, and nondistended. Bowel sounds positive in all 4 quadrants. Genitourinary: Deferred. Extremities: No cyanosis, no clubbing, no edema. Peripheral pulses palpable. Neurologic: Patient is somnolent. Skin: Normal skin turgor. No skin rashes. Labs & Vitals per chart ASSESSMENT & PLAN 33-year-old male with history of meningioma status post resection with underlying refractory seizure disorder who presented to the ER for evaluation of multiple seizures and was admitted to inpatient setting. 1. Seizure disorder. -Being followed by neurology. -Continue Dilantin, Keppra, and Trileptal. -PRN lorazepam for breakthrough seizures. -Seizure precautions. 2. History of brain tumor, status post resection. -Brain MRI results noted. 3. Fluids, electrolytes, and nutrition. -Mechanical soft diet. 4. DVT prophylaxis. -Bilateral SCDs. 5. Plan. -Continue anticonvulsants. -Pending [facility]. -The patient needs anticonvulsants upon discharge. The patient was seen in collaboration with Dr. Caldwell. Result Diagram: 03/28/19 0509 03/28/19 0509 Results 24hrs Laboratory Tests Test 03/28/19 15:20 03/28/19 15:58 03/29/19 04:44 Urine Color YELLOW Urine Clarity CLEAR Urine pH 7.0 Urine Specific [place] 1.020 Urine Ketones NEGATIVE Urine Nitrite NEGATIVE Urine Bilirubin NEGATIVE Urine Urobilinogen NEGATIVE Urine Leukocyte Esterase NEGATIVE Urine Hemoglobin NEGATIVE Urine Glucose NEGATIVE Urine Total Protein NEGATIVE Valproic Acid (Depakene) Level 78 36 L Exam/Review of Systems Exam Vitals Vital Signs Date Temp Pulse Resp B/P (MAP) Pulse Ox O2 O2 Flow FiO2 Time Delivery Rate 03/29/19 97.6 05:30 03/29/19 96 04:38 03/29/19 18 111/64 98 03:52 (80) 03/28/19 Room Air 04:00 Intake and Output 03/28/19 03/28/19 03/29/19 1515:00 23:00 07:00 IntakeIntake Total 210 ml 480 ml 100 ml OutputOutput Total 1350 ml 700 ml BalanceBalance 210 ml -870 ml -600 ml Results Results 24hrs Laboratory Tests Test 03/28/19 15:20 03/28/19 15:58 03/29/19 04:44 Urine Color YELLOW Urine Clarity CLEAR Urine pH 7.0 Urine Specific [place] 1.020 Urine Ketones NEGATIVE Urine Nitrite NEGATIVE Urine Bilirubin NEGATIVE Urine Urobilinogen NEGATIVE Urine Leukocyte Esterase NEGATIVE Urine Hemoglobin NEGATIVE Urine Glucose NEGATIVE Urine Total Protein NEGATIVE Valproic Acid (Depakene) Level 78 36 L Medications Medication Current Medications Levetiracetam 100 ml @ 400 mls/hr Q12 IVPB Last administered on 03/28/19at 21:44; Admin Dose 400 MLS/HR; Start 03/21/19 at 15:00 Acetaminophen (Tylenol Liquid) 650 mg Q6H PRN PO PAIN LEVEL 1-3 OR FEVER; Start 03/21/19 at 05:30 Docusate Sodium (Colace) 100 mg Q12H PRN PO CONSTIPATION; Start 03/21/19 at 05:30 Bisacodyl (Dulcolax) 5 mg DAILY PRN PO CONSTIPATION; Start 03/21/19 at 05:30 Pantoprazole (Protonix Tab) 40 mg DAILY@06 PO Last administered on 03/29/19at 05:57; Admin Dose 40 MG; Start 03/21/19 at 06:00 Oxcarbazepine (Trileptal) 300 mg BID PO Last administered on 03/28/19at 20:10; Admin Dose 300 MG; Start 03/21/19 at 07:00 Lorazepam (Ativan) 1 mg Q10MIN PRN IV SEIZURES Last administered on 03/28/19at 16:26; Admin Dose 1 MG; Start 03/28/19 at 11:00 Valproate Sodium 500 mg/Sodium Chloride 55 ml @ 55 mls/hr BID IVPB Last administered on 03/28/19at 20:10; Admin Dose 55 MLS/HR; Start 03/28/19 at 21:00 RALPH GIPSON NP March 29, 2019 07:30
[2019-03-29] MEDS: OXCARBAZEPINE 300 MG TAB PO SCH ×2 (07:56→22:14)
[2019-03-29] MEDS: LORAZEPAM 2 MG INJ IV PRN ×6 (07:57→22:26)
[2019-03-29] MEDS: LEVETIRACETAM 1500 MG (PMX) 100 ML IVPB SCH ×2 (07:57→20:17)
[2019-03-29] MEDS: VALPROATE INJ 500 MG in SOD CHLORIDE 0.9% 50 ML IVPB SCH ×4 (08:30→20:11)
--- NOTE | 2019-03-29 11:11 | CONS ---
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 The clinical picture is consistent w/ convulsive status epilepticus.. He endorsed medication noncompliance at home, the likely underlying precipit ant.. MRI brain shows stable post-op changes UA neg; CXR neg P: Consider transfer to ICU for closer monitoring should frequent seizure activity persist Hold dilantin Load with depakote 500mg and increase maintenance to 500mg QID; titrate PRN to goal level 50-100 Continue Keppra/Trileptal per ops.. Ativan iv prn prolonged seizure > 5min or for cluster episodes (>2 in 24h) Other management per primary Will follow clinically Consultation Date/Type/Reason Admit Date/Time March 21, 2019 at 05:18 Type of Consult Neurology Requesting Provider: PRATIMA ROQUE Date/Time of Note DATE: 03/29/19 TIME: 11:11 24 HR Interval Summary Free Text/Dictation Continues acute care. Pt reportedly had many seizure episodes overnight and during the day. Subjective hx not possible: pt non-verbal Exam Vital Signs Vitals Vital Signs Date Temp Pulse Resp B/P (MAP) Pulse Ox O2 O2 Flow FiO2 Time Delivery Rate 03/29/19 97.7 10:25 03/29/19 79 20 114/61 99 Room Air 10:06 (78) Intake and Output 03/28/19 03/28/19 03/29/19 1515:00 23:00 07:00 IntakeIntake Total 210 ml 480 ml 100 ml OutputOutput Total 1350 ml 700 ml BalanceBalance 210 ml -870 ml -600 ml Exam PE: Gen Appearance: No Apparent Distress HEENT: Normocephalic Cardiovascular: Regular rate Abdomen: Soft Extremities: Dry NE: The patient was lethargic and difficult to arouse. Nonverbal today. Did not follow commands. Cranial nerve examination was limited by mental status. Pupils were equal and reactive to light. There was no afferent pupillary defect. Funduscopic examination was limited. Face was grossly symmetric, w/ present corneal and cough reflexes. Tone was normal. Muscle bulk was normal. I did not see fasciculations. The patient withdrew to noxious stimulation x 4. Coordination and gait testing was limited by mental status. Arm and leg reflexes were within normal limits and symmetric. Harris's sign was absent. Plantar responses were flexor. ZA VERDUGO NP March 29, 2019 11:11 JL PHELPS March 30, 2019 05:21
[2019-03-29] MEDS ORDERED: VALPROATE INJ 500 MG in SOD CHLORIDE 0.9% 50 ML IVPB ONE (11:30)
[2019-03-30] VITALS (25 sets, daily range): BP systolic 108–127; BP diastolic 64–82; PULSE 79–105; RESP 13–20
[2019-03-30] MEDS: LORAZEPAM 2 MG INJ IV PRN ×2 (02:38→05:51)
[2019-03-30] MEDS: PANTOPRAZOLE (EC) 40 MG TAB PO SCH (05:54)
[2019-03-30] MEDS: LEVETIRACETAM 1500 MG (PMX) 100 ML IVPB SCH ×2 (08:30→20:32)
[2019-03-30] MEDS: OXCARBAZEPINE 300 MG TAB PO SCH ×2 (08:30→21:00)
--- NOTE | 2019-03-30 09:04 | PN ---
Date/Time of Note Date/Time of Note DATE: 03/30/19 TIME: 09:03 Assessment/Plan VTE Prophylaxis Risk score (from Ns)>0 risk: 2 [place] [facility] [place] Pharmacological prophylaxis: NA/contraindicated Pharm contraindication: other Lines/Catheters IV Catheter Type (from [facility]): Mid Line Urinary Cath still in place: No Assessment/Plan Hospital Course SUBJECTIVE: The patient having multiple seizure episodes. OBJECTIVE: Physical Exam General: Adequately build 33 year-old male lying in bed in no apparent distress. HEENT: Normocephalic. Surgical scar on the head. Eyes: Anicteric sclerae, conjunctivae clear. ENT: Nasal septum midline, oral mucosa moist. Neck supple, no JVD noticed. Respiratory: Bilaterally clear breath sounds. No use of accessory muscles of respiration. No adventitious breath sounds. Cardiovascular: S1, S2 heard. Regular rate and rhythm. Abdomen: Soft, nontender, and nondistended. Bowel sounds positive in all 4 rosalba drants. Genitourinary: Deferred. Extremities: No cyanosis, no clubbing, no edema. Peripheral pulses palpable. Neurologic: Patient is somnolent. Skin: Normal skin turgor. No skin rashes. Labs & Vitals per chart ASSESSMENT & PLAN 33-year-old male with history of meningioma status post resection with underlying refractory seizure disorder who presented to the ER for evaluation of multiple seizures and was admitted to inpatient setting. 1. Seizure disorder. -Being followed by neurology. -Continue Dilantin, Keppra, and Trileptal. -PRN lorazepam for breakthrough seizures. -Seizure precautions. 2. History of brain tumor, status post resection. -Brain MRI results noted. 3. Fluids, electrolytes, and nutrition. -Mechanical soft diet. 4. DVT prophylaxis. -Bilateral SCDs. 5. Plan. -Continue anticonvulsants. -The patient is to be transferred to intensive care unit because of multiple seizures and needing anticonvulsants back to back and for close monitoring of airway. The patient was seen in collaboration with Dr. Kowalski. Result Diagram: 03/28/19 0509 03/28/19 0509 Results 24hrs Laboratory Tests Test 03/29/19 14:25 03/29/19 18:14 03/30/19 05:43 Valproic Acid (Depakene) Level 45 L 78 58 Exam/Review of Systems Exam Vitals Vital Signs Date Temp Pulse Resp B/P (MAP) Pulse Ox O2 O2 Flow FiO2 Time Delivery Rate 03/30/19 94 08:29 03/30/19 97.3 20 127/81 96 07:41 (96) 03/29/19 Room Air 18:39 Intake and Output 03/29/19 03/29/19 03/30/19 1515:00 23:00 07:00 IntakeIntake Total 265 ml 810 ml 800 ml OutputOutput Total 300 ml 500 ml BalanceBalance 265 ml 510 ml 300 ml Results Results 24hrs Laboratory Tests Test 03/29/19 14:25 03/29/19 18:14 03/30/19 05:43 Valproic Acid (Depakene) Level 45 L 78 58 Medications Medication Current Medications Levetiracetam 100 ml @ 400 mls/hr Q12 IVPB Last administered on 03/30/19 08:30; Admin Dose 400 MLS/HR; Start 03/21/19 at 15:00 Acetaminophen (Tylenol Liquid) 650 mg Q6H PRN PO PAIN LEVEL 1-3 OR FEVER; Start 03/21/19 at 05:30 Docusate Sodium (Colace) 100 mg Q12H PRN PO CONSTIPATION; Start 03/21/19 at 05:30 Bisacodyl (Dulcolax) 5 mg DAILY PRN PO CONSTIPATION; Start 03/21/19 at 05:30 Pantoprazole (Protonix Tab) 40 mg DAILY@06 PO Last administered on 03/30/19 05:54; Admin Dose 40 MG; Start 03/21/19 at 06:00 Oxcarbazepine (Trileptal) 300 mg BID PO Last administered on 03/30/19 08:30; Admin Dose 300 MG; Start 03/21/19 at 07:00 Lorazepam (Ativan) 1 mg Q10MIN PRN IV SEIZURES Last administered on 03/30/19 05:51; Admin Dose 1 MG; Start 03/28/19 at 11:00 Valproate Sodium 500 mg/Sodium Chloride 55 ml @ 55 mls/hr QID IVPB Last administered on 03/29/19 20:11; Admin Dose 55 MLS/HR; Start 03/29/19 at 13:30 RALPH GIPSON NP March 30, 2019 09:04
--- NOTE | 2019-03-30 10:19 | CONS ---
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 The clinical picture is consistent w/ convulsive status epilepticus.. He endorsed medication noncompliance at home, the likely underlying precipi tant.. MRI brain shows stable post-op changes UA neg; CXR neg P: Recommend transfer to ICU for frequent seizure activity Load with phb 1g (250mg q3h) and start maintenance 65mg BID; titrate PRN to goal level ~30 Ativan iv prn prolonged seizure > 5min or for cluster episodes (>2 in 24h) Other management per primary Will follow clinically Consultation Date/Type/Reason Admit Date/Time March 21, 2019 at 05:18 Type of Consult Neurology Requesting Provider: PRATIMA ROQUE Date/Time of Note DATE: 03/30/19 TIME: 10:19 24 HR Interval Summary Free Text/Dictation Continues acute care. Had ~15 seizure episodes overnight and several more today. Exam Vital Signs Vitals Vital Signs Date Temp Pulse Resp B/P (MAP) Pulse Ox O2 O2 Flow FiO2 Time Delivery Rate 03/30/19 94 08:29 03/30/19 97.3 20 127/81 96 07:41 (96) 03/29/19 Room Air 18:39 Intake and Output 03/29/19 03/29/19 03/30/19 1515:00 23:00 07:00 IntakeIntake Total 265 ml 810 ml 800 ml OutputOutput Total 300 ml 500 ml BalanceBalance 265 ml 510 ml 300 ml Exam PE: Gen Appearance: No Apparent Distress HEENT: Normocephalic Cardiovascular: Regular rate Abdomen: Soft Extremities: Dry NE: The patient was obtunded. Nonverbal today. Did not follow commands. Cranial nerve examination was limited by mental status. Pupils were equal and reactive to light. There was no afferent pupillary defect. Funduscopic examination was limited. Face was grossly symmetric, w/ present corneal and cough reflexes. Tone was normal. Muscle bulk was normal. I did not see fasciculations. The patient localized his UE to noxious stimuli; withdrew his lowers Coordination and gait testing was limited by mental status. Arm and leg reflexes were within normal limits and symmetric. Harris's sign was absent. Plantar responses were flexor. LUCINA,ZA INVESTIGATIVE ASSISTANT March 30, 2019 10:19 JL PHELPS March 31, 2019 07:36
[2019-03-30] MEDS: VALPROATE INJ 500 MG in SOD CHLORIDE 0.9% 50 ML IVPB SCH (10:52)
[2019-03-30] MEDS: PHENOBARBITAL 65 MG INJ IV SCH ×4 (12:56→20:32)
[2019-03-30] MEDS: DEXTROSE 5%-0.45% NACL 1,000 ML IV SCH (20:32)
[2019-03-31] VITALS (24 sets, daily range): BP systolic 101–127; BP diastolic 67–96; PULSE 73–115; RESP 13–19
[2019-03-31] MEDS: PANTOPRAZOLE (EC) 40 MG TAB PO SCH (05:37)
[2019-03-31] MEDS: PHENOBARBITAL 65 MG INJ IV SCH (08:33)
[2019-03-31] MEDS: LEVETIRACETAM 1500 MG (PMX) 100 ML IVPB SCH ×2 (08:33→21:47)
[2019-03-31] MEDS: OXCARBAZEPINE 300 MG TAB PO SCH ×2 (08:34→21:00)
--- NOTE | 2019-03-31 09:13 | PN ---
Date/Time of Note Date/Time of Note DATE: 03/31/19 TIME: 09:12 Assessment/Plan VTE Prophylaxis Risk score (from Ns)>0 risk: 4 SCD applied (from Ns): Yes Pharmacological prophylaxis: NA/contraindicated Pharm contraindication: other Lines/Catheters [facility]from [facility] Mid Line Urinary Cath still in place: Yes Reason Cath still needed: other (indicate) Assessment/Plan Hospital Course SUBJECTIVE: Patient was transferred to intensive care unit on 03/30/2019 and was started on phenobarbital. The patient remains somnolent. No more seizures reported in the intensive care unit. OBJECTIVE: Physical Exam General: Adequately build 33 year-old male lying in bed in no apparent distress. HEENT: Normocephalic. Surgical scar on the head. Eyes: Anicteric sclerae, conjunctivae clear. ENT: Nasal septum midline, oral mucosa moist. Neck supple, no JVD noticed. Respiratory: Bilaterally clear breath sounds. No use of accessory muscles of respiration. No adventitious breath sounds. Cardiovascular: S1, S2 heard. Regular rate and rhythm. Abdomen: Soft, nontender, and nondistended. Bowel sounds positive in all 4 qu adrants. Genitourinary: Deferred. Extremities: No cyanosis, no clubbing, no edema. Peripheral pulses palpable. Neurologic: Patient is somnolent. Skin: Normal skin turgor. No skin rashes. Labs & Vitals per chart ASSESSMENT & PLAN 33-year-old male with history of meningioma status post resection with underlying refractory seizure disorder who presented to the ER for evaluation of multiple seizures and was admitted to inpatient setting. 1. Seizure disorder. -Being followed by neurology. -Continue phenobarbital, Keppra, and Trileptal. -PRN lorazepam for breakthrough seizures. -Seizure precautions. 2. History of brain tumor, status post resection. -Brain MRI results noted. 3. Fluids, electrolytes, and nutrition. -Mechanical soft diet if the patient is awake enough. -IV fluids. 4. DVT prophylaxis. -Bilateral SCDs. 5. Plan. -Continue anticonvulsants. -Continue close monitoring of airway. The patient was seen in collaboration with Dr. Kowalski. Critical care time: 35 minutes. Result Diagram: 03/31/19 0707 03/31/19 0507 Results 24hrs Laboratory Tests Test 03/31/19 00:13 03/31/19 05:07 03/31/19 07:07 Blood Gas Specimen Source Blood arterial Arterial Blood Date Drawn 03/31/2019 12:41:00 AM Arterial Blood pH 7.377 (Temp corrected) Arterial Blood pCO2 44.1 (Temp correct) Arterial Blood pO2 97.0 (Temp corrected) Arterial Blood HCO3 25.3 Arterial Blood Base Excess -0.1 Arterial Blood 97.1 Oxygen Saturation Ryley Test ACCEPTAB Arterial Blood Gas Right Radial Puncture Site Arterial 0.5 Blood Carboxyhemoglobin Arterial Blood 0.3 Methemoglobin Oxyhemoglobin Percent 96.3 Blood Gas Temperature 37.0 Blood Gas Modality ROOMK AIR FiO2 21.0 Blood Gas Critical Value Treva ONEILL RN Read Back Blood Gas Notified Whom RTR Blood Gas Notified Time 03/31/2019 12:51:00 AM Sodium Level 138 Potassium Level 5.2 H Chloride Level 104 Carbon Dioxide Level 27 Anion Gap 7 Blood Urea Nitrogen 14 Creatinine 0.71 Est Glomerular Filtrat > 60 Rate mL/min Glucose Level 100 Calcium Level 9.1 Phosphorus Level 4.1 Magnesium Level 2.0 White Blood Count 5.6 # Red Blood Count 5.35 Hemoglobin 14.9 Hematocrit 44.7 Mean Corpuscular Volume 83.6 Mean Corpuscular Hemoglobin 27.9 L Mean Corpuscular 33.3 Hemoglobin Concent Red Cell Distribution Width 11.3 L Platelet Count 231 Mean Platelet Volume 8.8 Immature Granulocytes % 0.400 Neutrophils % 58.7 Lymphocytes % 25.8 Monocytes % 13.3 H Eosinophils % 0.9 Basophils % 0.9 Nucleated Red Blood Cells % 0.0 Immature Granulocytes # 0.020 Neutrophils # 3.3 Lymphocytes # 1.4 Monocytes # 0.7 Eosinophils # 0.1 Basophils # 0.1 Nucleated Red Blood Cells # 0.0 Exam/Review of Systems Exam Vitals Vital Signs Date Temp Pulse Resp B/P (MAP) Pulse Ox O2 O2 Flow FiO2 Time Delivery Rate 03/31/19 100 08:00 03/31/19 98.2 14 114/81 99 Room Air 08:00 (92) Intake and Output 03/30/19 03/30/19 03/31/19 1515:00 23:00 07:00 IntakeIntake Total 155 ml 310 ml 560 ml OutputOutput Total 0 ml 800 ml BalanceBalance 155 ml 310 ml -240 ml Results Results 24hrs Laboratory Tests Test 03/31/19 00:13 03/31/19 05:07 03/31/19 07:07 Blood Gas Specimen Source Blood arterial Arterial Blood Date Drawn 03/31/2019 12:41:00 AM Arterial Blood pH 7.377 (Temp corrected) Arterial Blood pCO2 44.1 (Temp correct) Arterial Blood pO2 97.0 (Temp corrected) Arterial Blood HCO3 25.3 Arterial Blood Base Excess -0.1 Arterial Blood 97.1 Oxygen Saturation Ryley Test ACCEPTAB Arterial Blood Gas Right Radial Puncture Site Arterial 0.5 Blood Carboxyhemoglobin Arterial Blood 0.3 Methemoglobin Oxyhemoglobin Percent 96.3 Blood Gas Temperature 37.0 Blood Gas Modality ROOMK AIR FiO2 21.0 Blood Gas Critical Value Treva ONEILL RN Read Back Blood Gas Notified Whom RTR Blood Gas Notified Time 03/31/2019 12:51:00 AM Sodium Level 138 Potassium Level 5.2 H Chloride Level 104 Carbon Dioxide Level 27 Anion Gap 7 Blood Urea Nitrogen 14 Creatinine 0.71 Est Glomerular Filtrat > 60 Rate mL/min Glucose Level 100 Calcium Level 9.1 Phosphorus Level 4.1 Magnesium Level 2.0 White Blood Count 5.6 # Red Blood Count 5.35 Hemoglobin 14.9 Hematocrit 44.7 Mean Corpuscular Volume 83.6 Mean Corpuscular Hemoglobin 27.9 L Mean Corpuscular 33.3 Hemoglobin Concent Red Cell Distribution Width 11.3 L Platelet Count 231 Mean Platelet Volume 8.8 Immature Granulocytes % 0.400 Neutrophils % 58.7 Lymphocytes % 25.8 Monocytes % 13.3 H Eosinophils % 0.9 Basophils % 0.9 Nucleated Red Blood Cells % 0.0 Immature Granulocytes # 0.020 Neutrophils # 3.3 Lymphocytes # 1.4 Monocytes # 0.7 Eosinophils # 0.1 Basophils # 0.1 Nucleated Red Blood Cells # 0.0 Medications Medication Current Medications Levetiracetam 100 ml @ 400 mls/hr Q12 IVPB Last administered on 03/31/19at 08:33; Admin Dose 400 MLS/HR; Start 03/21/19 at 15:00 Acetaminophen (Tylenol Liquid) 650 mg Q6H PRN PO PAIN LEVEL 1-3 OR FEVER; Start 03/21/19 at 05:30 Docusate Sodium (Colace) 100 mg Q12H PRN PO CONSTIPATION; Start 03/21/19 at 05:30 Bisacodyl (Dulcolax) 5 mg DAILY PRN PO CONSTIPATION; Start 03/21/19 at 05:30 Pantoprazole (Protonix Tab) 40 mg DAILY@06 PO Last administered on 03/30/19 05:54; Admin Dose 40 MG; Start 03/21/19 at 06:00 Oxcarbazepine (Trileptal) 300 mg BID PO Last administered on 03/30/19 08:30; Admin Dose 300 MG; Start 03/21/19 at 07:00 Lorazepam (Ativan) 1 mg Q10MIN PRN IV SEIZURES Last administered on 03/30/19 05:51; Admin Dose 1 MG; Start 03/28/19 at 11:00 Phenobarbital (Luminal) 65 mg BID IV Last administered on 03/31/19 08:33; Admin Dose 65 MG; Start 03/31/19 at 09:00 Dextrose/Sodium Chloride 1,000 ml @ 70 mls/hr [id number] IV Last administered on 03/30/19 20:32; Admin Dose 70 MLS/HR; Start 03/30/19 at 20:30 RALPH GIPSON NP March 31, 2019 09:13
[2019-03-31] MEDS: DEXTROSE 5%-0.45% NACL 1,000 ML IV SCH (09:30)
--- NOTE | 2019-03-31 12:20 | CONS ---
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 The clinical picture is consistent w/ convulsive status epilepticus.. He endorsed medication noncompliance at home, the likely underlying precipi tant.. MRI brain shows stable post-op changes UA neg; CXR neg P: Cont maintenance phb 65mg BID; titrate PRN to goal level 15-40 Continue Keppra/Trileptal per ops.. Ativan iv prn prolonged seizure > 5min or for cluster episodes (>2 in 24h) Other management per primary Will follow clinically Consultation Date/Type/Reason Admit Date/Time March 21, 2019 at 05:18 Type of Consult Neurology Requesting Provider: PRATIMA ROQUE Date/Time of Note DATE: 03/31/19 TIME: 12:19 24 HR Interval Summary Free Text/Dictation Transferred to ICU for ongoing seizure activity. S/p phb load. No further seizure episodes reported at this time. Subjective hx not possible: pt non-verbal Exam Vital Signs Vitals Vital Signs Date Temp Pulse Resp B/P (MAP) Pulse Ox O2 O2 Flow FiO2 Time Delivery Rate 03/31/19 86 12:00 03/31/19 98.6 15 123/88 98 Room Air 12:00 (100) Intake and Output 03/30/19 03/30/19 03/31/19 1515:00 23:00 07:00 IntakeIntake Total 155 ml 310 ml 560 ml OutputOutput Total 0 ml 800 ml BalanceBalance 155 ml 310 ml -240 ml Exam PE: Gen Appearance: No Apparent Distress HEENT: Normocephalic Cardiovascular: Regular rate Abdomen: Soft Extremities: Dry NE: The patient was obtunded and nonverbal. Opens eyes to noxious stimuli. Cranial nerve examination was limited by mental status. Pupils were equal and reactive to light. There was no afferent pupillary defect. Funduscopic exa mination was limited. Face was grossly symmetric, w/ present corneal and cough reflexes. Tone was normal. Muscle bulk was normal. I did not see fasciculations. The patient localized his UE to noxious stimuli; withdrew his lowers Coordination and gait testing was limited by mental status. Arm and leg reflexes were within normal limits and symmetric. Harris's sign was absent. Plantar responses were flexor. ZA VERDUGO NP March 31, 2019 12:20
[2019-04-01] VITALS (51 sets, daily range): BP systolic 102–129; BP diastolic 68–90; PULSE 72–115; RESP 12–21
[2019-04-01] MEDS: PHENOBARBITAL 65 MG INJ IV SCH ×3 (00:21→21:01)
[2019-04-01] MEDS: DEXTROSE 5%-0.45% NACL 1,000 ML IV SCH ×2 (00:35→15:21)
[2019-04-01] MEDS: PANTOPRAZOLE (EC) 40 MG TAB PO SCH (05:11)
[2019-04-01] MEDS: LORAZEPAM 2 MG INJ IV PRN (05:11)
[2019-04-01] MEDS: LEVETIRACETAM 1500 MG (PMX) 100 ML IVPB SCH ×2 (09:06→21:01)
[2019-04-01] MEDS: OXCARBAZEPINE 300 MG TAB PO SCH ×2 (09:06→21:01)
--- NOTE | 2019-04-01 09:09 | PN ---
Date/Time of Note Date/Time of Note DATE: 04/01/19 TIME: 09:08 Assessment/Plan VTE Prophylaxis Risk score (from Ns)>0 risk: 4 SCD applied (from Ns): Yes Pharmacological prophylaxis: NA/contraindicated Pharm contraindication: other Lines/Catheters IV Catheter Type (from [facility]): Mid Line Urinary Cath still in place: Yes Reason Cath still needed: other (indicate) Assessment/Plan Hospital Course SUBJECTIVE: Patient was transferred to intensive care unit on 03/30/2019 and was started on phenobarbital. The patient remains somnolent. The patient continues to have multiple episodes of seizures. OBJECTIVE: Physical Exam General: Adequately build 33 year-old male lying in bed in no apparent distress. HEENT: Normocephalic. Surgical scar on the head. Eyes: Anicteric sclerae, conjunctivae clear. ENT: Nasal septum midline, oral mucosa moist. Neck supple, no JVD noticed. Respiratory: Bilaterally clear breath sounds. No use of accessory muscles of respiration. No adventitious breath sounds. Cardiovascular: S1, S2 heard. Regular rate and rhythm. Abdomen: Soft, nontender, and nondistended. Bowel sounds positive in all 4 quadrants. Genitourinary: Deferred. Extremities: No cyanosis, no clubbing, no edema. Peripheral pulses palpable. Neurologic: Patient is somnolent. Wakes up to call and barely follows commands. Skin: Normal skin turgor. No skin rashes. Labs & Vitals per chart ASSESSMENT & PLAN 33-year-old male with history of meningioma status post resection with underlying refractory seizure disorder who presented to the ER for evaluation of multiple seizures and was admitted to inpatient setting. 1. Seizure disorder. -Being followed by neurology. -Continue phenobarbital, Keppra, and Trileptal. -PRN lorazepam for breakthrough seizures. -Seizure precautions. 2. History of brain tumor, status post resection. -Brain MRI results noted. 3. Fluids, electrolytes, and nutrition. -Mechanical soft diet if the patient is awake enough. -IV fluids. 4. DVT prophylaxis. -Bilateral SCDs. 5. Plan. -Continue anticonvulsants. -Continue close monitoring of airway. The patient was seen in collaboration with Dr. Kowalski. Critical care time: 35 minutes. Result Diagram: 04/01/19 0457 04/01/19 0457 Results 24hrs Laboratory Tests Test 03/31/19 21:12 04/01/19 04:57 Bedside Glucose 97 White Blood Count 5.5 Red Blood Count 5.16 Hemoglobin 14.3 Hematocrit 43.2 Mean Corpuscular Volume 83.7 Mean Corpuscular Hemoglobin 27.7 L Mean Corpuscular Hemoglobin Concent 33.1 Red Cell Distribution Width 11.4 L Platelet Count 231 Mean Platelet Volume 9.1 Immature Granulocytes % 0.400 Neutrophils % 64.2 Lymphocytes % 23.1 Monocytes % 11.4 H Eosinophils % 0.4 Basophils % 0.5 Nucleated Red Blood Cells % 0.0 Immature Granulocytes # 0.020 Neutrophils # 3.6 Lymphocytes # 1.3 Monocytes # 0.6 Eosinophils # 0.0 Basophils # 0.0 Nucleated Red Blood Cells # 0.0 Sodium Level 139 Potassium Level 4.5 Chloride Level 106 Carbon Dioxide Level 29 Anion Gap 4 L Blood Urea Nitrogen 9 Creatinine 0.71 Est Glomerular Filtrat Rate mL/min > 60 Glucose Level 107 Calcium Level 9.0 Phosphorus Level 3.9 Magnesium Level 2.0 Exam/Review of Systems Exam Vitals Vital Signs Date Temp Pulse Resp B/P (MAP) Pulse Ox O2 O2 Flow FiO2 Time Delivery Rate 04/01/19 83 15 109/68 97 07:00 (82) 04/01/19 98.4 04:00 04/01/19 Room Air 00:00 Intake and Output 03/31/19 03/31/19 04/01/19 1515:00 23:00 07:00 IntakeIntake Total 490 ml 630 ml 490 ml OutputOutput Total 250 ml 470 ml 865 ml BalanceBalance 240 ml 160 ml -375 ml Results Results 24hrs Laboratory Tests Test 03/31/19 21:12 04/01/19 04:57 Bedside Glucose 97 White Blood Count 5.5 Red Blood Count 5.16 Hemoglobin 14.3 Hematocrit 43.2 Mean Corpuscular Volume 83.7 Mean Corpuscular Hemoglobin 27.7 L Mean Corpuscular Hemoglobin Concent 33.1 Red Cell Distribution Width 11.4 L Platelet Count 231 Mean Platelet Volume 9.1 Immature Granulocytes % 0.400 Neutrophils % 64.2 Lymphocytes % 23.1 Monocytes % 11.4 H Eosinophils % 0.4 Basophils % 0.5 Nucleated Red Blood Cells % 0.0 Immature Granulocytes # 0.020 Neutrophils # 3.6 Lymphocytes # 1.3 Monocytes # 0.6 Eosinophils # 0.0 Basophils # 0.0 Nucleated Red Blood Cells # 0.0 Sodium Level 139 Potassium Level 4.5 Chloride Level 106 Carbon Dioxide Level 29 Anion Gap 4 L Blood Urea Nitrogen 9 Creatinine 0.71 Est Glomerular Filtrat Rate mL/min > 60 Glucose Level 107 Calcium Level 9.0 Phosphorus Level 3.9 Magnesium Level 2.0 Medications Medication Current Medications Levetiracetam 100 ml @ 400 mls/hr Q12 IVPB Last administered on 04/01/19 09:06; Admin Dose 400 MLS/HR; Start 03/21/19 at 15:00 Acetaminophen (Tylenol Liquid) 650 mg Q6H PRN PO PAIN LEVEL 1-3 OR FEVER; Star t 03/21/19 at 05:30 Docusate Sodium (Colace) 100 mg Q12H PRN PO CONSTIPATION; Start 03/21/19 at 05:30 Bisacodyl (Dulcolax) 5 mg DAILY PRN PO CONSTIPATION; Start 03/21/19 at 05:30 Pantoprazole (Protonix Tab) 40 mg DAILY@06 PO Last administered on 03/30/19 05:54; Admin Dose 40 MG; Start 03/21/19 at 06:00 Oxcarbazepine (Trileptal) 300 mg BID PO Last administered on 04/01/19 09:06; Admin Dose 300 MG; Start 03/21/19 at 07:00 Lorazepam (Ativan) 1 mg Q10MIN PRN IV SEIZURES Last administered on 04/01/19 05:11; Admin Dose 1 MG; Start 03/28/19 at 11:00 Phenobarbital (Luminal) 65 mg BID IV Last administered on 04/01/19 09:06; Admin Dose 65 MG; Start 03/31/19 at 09:00 Dextrose/Sodium Chloride 1,000 ml @ 70 mls/hr [id number] IV Last administered on 04/01/19 00:35; Admin Dose 70 MLS/HR; Start 03/30/19 at 20:30 RALPH GIPSON NP April 01, 2019 09:09
--- NOTE | 2019-04-01 12:47 | CONS ---
Assessment/Plan Assessment/Plan Hospital Course 33 M c/ reported Hx of meningioma s/p resection c/b refractory epilepsy, who presents for evaluation following multiple breakthrough seizures.. The clinical picture is consistent w/ convulsive status epilepticus.. He endorsed medication noncompliance at home, the likely underlying precipit ant.. MRI brain shows stable post-op changes UA neg; CXR neg P: Cont maintenance phb 65mg BID for now Resume Dilantin for now, to be titrated to goal level ~20 Hold Keppra/Trileptal due to inefficacy Ativan iv prn prolonged seizure > 5min or for cluster episodes (>2 in 24h) Other management per primary Will follow clinically Consultation Date/Type/Reason Admit Date/Time March 21, 2019 at 05:18 Type of Consult Neurology Requesting Provider: PRATIMA ROQUE Date/Time of Note DATE: 04/01/19 TIME: 12:47 24 HR Interval Summary Free Text/Dictation Continues acute care. S/p phb load. Had 3 seizure episodes early this am. Subjective hx not possible: pt non-verbal Exam Vital Signs Vitals Vital Signs Date Temp Pulse Resp B/P (MAP) Pulse Ox O2 O2 Flow FiO2 Time Delivery Rate 04/01/19 74 16 107/75 98 10:00 (86) 04/01/19 97.0 Nasal 08:00 Cannula Intake and Output 03/31/19 03/31/19 04/01/19 1515:00 23:00 07:00 IntakeIntake Total 490 ml 630 ml 490 ml OutputOutput Total 250 ml 470 ml 865 ml BalanceBalance 240 ml 160 ml -375 ml Exam PE: Gen Appearance: No Apparent Distress HEENT: Normocephalic Cardiovascular: Regular rate Abdomen: Soft Extremities: Dry NE: The patient was obtunded and nonverbal. Opens eyes to noxious stimuli. Cranial nerve examination was limited by mental status. Pupils were equal and reactive to light. There was no afferent pupillary defect. Funduscopic examination was limited. Face was grossly symmetric, w/ present corneal and cough reflexes. Tone was normal. Muscle bulk was normal. I did not see fasciculations. The patient localized his UE to noxious stimuli; withdrew his lowers Coordination and gait testing was limited by mental status. Arm and leg reflexes were within normal limits and symmetric. Harris's sign was absent. Plantar responses were flexor. LUCINA,ZA REGIONAL SERVICE MANAGER April 01, 2019 12:47 JL PHELPS April 02, 2019 06:40
[2019-04-02] VITALS (24 sets, daily range): BP systolic 93–138; BP diastolic 65–86; PULSE 110–135; RESP 14–22
[2019-04-02] MEDS: LORAZEPAM 2 MG INJ IV PRN ×2 (02:51→03:37)
[2019-04-02] MEDS: DEXTROSE 5%-0.45% NACL 1,000 ML IV SCH (04:45)
[2019-04-02] MEDS: PANTOPRAZOLE (EC) 40 MG TAB PO SCH (05:33)
[2019-04-02] MEDS ORDERED: PHENYTOIN 1,000 MG in SOD CHLORIDE 0.9% 100 ML IV ONE ×2 (07:00→08:00)
--- NOTE | 2019-04-02 09:46 | PN ---
Date/Time of Note Date/Time of Note DATE: 04/02/19 TIME: 09:45 Assessment/Plan VTE Prophylaxis Risk [place] (from [facility] [place] risk: 7 SCD applied (from [facility] [place]): Yes Pharmacological prophylaxis: NA/contraindicated Pharm contraindication: other Lines/Catheters IV Catheter Type (from [facility] Mid Line Urinary Cath still in place: Yes Reason Cath still needed: other (indicate) Assessment/Plan Hospital Course SUBJECTIVE: Patient was transferred to intensive care unit on 03/30/2019 and was started on phenobarbital. The patient remains somnolent. The patient continues to have seizures. The patient was started on NGT feedings. OBJECTIVE: Physical Exam General: Adequately build 33 year-old male lying in bed in no apparent distress. HEENT: Normocephalic. Surgical scar on the head. Eyes: Anicteric sclerae, conjunctivae clear. ENT: Nasal septum midline, oral mucosa is dry. Neck supple, no JVD noticed. Respiratory: Bilaterally clear breath sounds. No use of accessory muscles of respiration. No adventitious breath sounds. Cardiovascular: S1, S2 heard. Regular rate and rhythm. Abdomen: Soft, nontender, and nondistended. Bowel sounds positive in all 4 quadrants. Genitourinary: Deferred. Extremities: No cyanosis, no clubbing, no edema. Peripheral pulses palpable. Neurologic: Patient is somnolent. Skin: Normal skin turgor. No skin rashes. Labs & Vitals per chart ASSESSMENT & PLAN 33-year-old male with history of meningioma status post resection with underlying refractory seizure disorder who presented to the ER for evaluation of multiple seizures and was admitted to inpatient setting. 1. Seizure disorder. -Being followed by neurology. -Continue phenobarbital and dilantin -PRN lorazepam for breakthrough seizures. -Seizure precautions. 2. History of brain tumor, status post resection. -Brain MRI results noted. 3. Fluids, electrolytes, and nutrition. -NGT feeds. 4. DVT prophylaxis. -Bilateral SCDs. 5. Plan. -Continue anticonvulsants. -Continue close monitoring of airway. -The patient may need to be transferred to a higher level of care where he can have continuous electroencephalography monitoring. Case management order was put in. The patient was seen in collaboration with Dr. Kowalski. Critical care time: 35 minutes. Result Diagram: 04/02/19 0501 04/02/19 0501 Results 24hrs Laboratory Tests Test 04/02/19 04:59 04/02/19 05:01 Phenytoin (Dilantin) Level < 3.0 L White Blood Count 10.4 # Red Blood Count 4.90 Hemoglobin 13.4 L Hematocrit 41.0 L Mean Corpuscular Volume 83.7 Mean Corpuscular Hemoglobin 27.3 L Mean Corpuscular Hemoglobin Concent 32.7 Red Cell Distribution Width 11.4 L Platelet Count 244 Mean Platelet Volume 8.9 Immature Granulocytes % 0.400 Neutrophils % 84.5 H Lymphocytes % 6.9 L Monocytes % 7.8 Eosinophils % 0.1 Basophils % 0.3 Nucleated Red Blood Cells % 0.0 Immature Granulocytes # 0.040 H Neutrophils # 8.8 H Lymphocytes # 0.7 L Monocytes # 0.8 Eosinophils # 0.0 Basophils # 0.0 Nucleated Red Blood Cells # 0.0 Sodium Level 139 Potassium Level 3.9 Chloride Level 103 Carbon Dioxide Level 29 Anion Gap 7 Blood Urea Nitrogen 7 Creatinine 0.69 Est Glomerular Filtrat Rate mL/min > 60 Glucose Level 127 Calcium Level 9.1 Phosphorus Level 3.2 Magnesium Level 1.8 Exam/Review of Systems Exam Vitals Vital Signs Date Temp Pulse Resp B/P (MAP) Pulse Ox O2 O2 Flow FiO2 Time Delivery Rate 04/02/19 132 08:00 04/02/19 18 138/83 98 Room Air 06:00 (101) 04/02/19 98.0 04:00 Intake and Output 04/01/19 04/01/19 04/02/19 1515:00 23:00 07:00 IntakeIntake Total 590 ml 1020 ml 1030 ml OutputOutput Total 345 ml 530 ml 1100 ml BalanceBalance 245 ml 490 ml -70 ml Results Results 24hrs Laboratory Tests Test 04/02/19 04:59 04/02/19 05:01 Phenytoin (Dilantin) Level < 3.0 L White Blood Count 10.4 # Red Blood Count 4.90 Hemoglobin 13.4 L Hematocrit 41.0 L Mean Corpuscular Volume 83.7 Mean Corpuscular Hemoglobin 27.3 L Mean Corpuscular Hemoglobin Concent 32.7 Red Cell Distribution Width 11.4 L Platelet Count 244 Mean Platelet Volume 8.9 Immature Granulocytes % 0.400 Neutrophils % 84.5 H Lymphocytes % 6.9 L Monocytes % 7.8 Eosinophils % 0.1 Basophils % 0.3 Nucleated Red Blood Cells % 0.0 Immature Granulocytes # 0.040 H Neutrophils # 8.8 H Lymphocytes # 0.7 L Monocytes # 0.8 Eosinophils # 0.0 Basophils # 0.0 Nucleated Red Blood Cells # 0.0 Sodium Level 139 Potassium Level 3.9 Chloride Level 103 Carbon Dioxide Level 29 Anion Gap 7 Blood Urea Nitrogen 7 Creatinine 0.69 Est Glomerular Filtrat Rate mL/min > 60 Glucose Level 127 Calcium Level 9.1 Phosphorus Level 3.2 Magnesium Level 1.8 Medications Medication Current Medications Acetaminophen (Tylenol Liquid) 650 mg Q6H PRN PO PAIN LEVEL 1-3 OR FEVER; Start 03/21/19 at 05:30 Docusate Sodium (Colace) 100 mg Q12H PRN PO CONSTIPATION; Start 03/21/19 at 05:30 Bisacodyl (Dulcolax) 5 mg DAILY PRN PO CONSTIPATION; Start 03/21/19 at 05:30 Pantoprazole (Protonix Tab) 40 mg DAILY@06 PO Last administered on 04/02/19at 05:33; Admin Dose 40 MG; Start 03/21/19 at 06:00 Lorazepam (Ativan) 1 mg Q10MIN PRN IV SEIZURES Last administered on 04/02/19 03:37; Admin Dose 1 MG; Start 03/28/19 at 11:00 Phenobarbital (Luminal) 65 mg BID IV Last administered on 04/01/19 21:01; Ad min Dose 65 MG; Start 03/31/19 at 09:00 Dextrose/Sodium Chloride 1,000 ml @ 70 mls/hr [id number] IV Last administered on 04/02/19at 04:45; Admin Dose 70 MLS/HR; Start 03/30/19 at 20:30 RALPH GIPSON NP April 02, 2019 09:46
[2019-04-02] MEDS: PHENOBARBITAL 65 MG INJ IV SCH ×2 (11:52→21:24)
--- NOTE | 2019-04-02 14:22 | CONS ---
Assessment/Plan Assessment/Plan Hospital Course 33 M c/ reported Hx of meningioma s/p resection c/b refractory epilepsy, who presents for evaluation following multiple breakthrough seizures.. The clinical picture is consistent w/ convulsive status epilepticus.. He endorsed medication noncompliance at home, the likely underlying precipit ant.. Now he may have a hospital acquired infection, which could certainly potentiate refractory seizures... MRI brain shows stable post-op changes Initial UA neg; CXR neg P: Infectious workup and other medical management per primary Cont maintenance phb 65mg BID for now Cont maintenance Dilantin for now, to be titrated to goal level ~15-20 Low threshold for intubation for airway protection while sedated on phenobarbital.. Hold Keppra/Trileptal indefinitely, due to inefficacy Ativan iv prn prolonged seizure > 5min or for cluster episodes (>2 in 24h) Will follow clinically Consultation Date/Type/Reason Admit Date/Time March 21, 2019 at 05:18 Type of Consult Neurology Reason for Consultation status epilepticus Requesting Provider: PRATIMA ROQUE Date/Time of Note DATE: 04/02/19 TIME: 14:16 24 HR Interval Summary Free Text/Dictation Continues icu care Exam Vital Signs Vitals Vital Signs Date Temp Pulse Resp B/P (MAP) Pulse Ox O2 O2 Flow FiO2 Time Delivery Rate 04/02/19 123 12:00 04/02/19 18 138/83 98 Room Air 06:00 (101) 04/02/19 98.0 04:00 Intake and Output 04/01/19 04/01/19 04/02/19 1414:59 22:59 06:59 IntakeIntake Total 660 ml 920 ml 1060 ml OutputOutput Total 420 ml 480 ml 1150 ml BalanceBalance 240 ml 440 ml -90 ml JL PHELPS April 02, 2019 14:22
[2019-04-02] MEDS: PHENYTOIN 100 MG INJ IV SCH ×2 (14:30→21:24)
[2019-04-02] MEDS: CEFTRIAXONE 1 GM/50 ML (PMX) 50 ML IVPB SCH (15:10)
[2019-04-02] MEDS: ACETAMINOPHEN 650MG/20.3ML CUP PO PRN ×2 (15:10→16:56)
[2019-04-03] VITALS (36 sets, daily range): BP systolic 110–130; BP diastolic 52–89; PULSE 99–123; RESP 16–26
[2019-04-03] MEDS: ACETAMINOPHEN 650MG/20.3ML CUP PO PRN ×2 (04:26→04:27)
[2019-04-03] MEDS: PHENYTOIN 100 MG INJ IV SCH ×3 (05:29→21:14)
[2019-04-03] MEDS: PANTOPRAZOLE (EC) 40 MG TAB PO SCH (05:29)
[2019-04-03] MEDS ORDERED: ETOMIDATE 20 MG INJ ONE (07:00)
[2019-04-03] MEDS ORDERED: SUCCINYLCHOLINE CHLORIDE 100 MG/5 ML SYG IV ONE (07:00)
--- NOTE | 2019-04-03 09:14 | PN ---
Date/Time of Note Date/Time of Note DATE: 04/03/19 TIME: 09:13 Assessment/Plan VTE Prophylaxis Risk score (from [facility] [place])>0 risk: 6 SCD applied (from [facility] [place]): Yes Pharmacological prophylaxis: NA/contraindicated Pharm contraindication: other Lines/Catheters IV Catheter Type (from [facility]): Peripheral IV Urinary Cath still in place: Yes Reason Cath still needed: other (indicate) Assessment/Plan Hospital Course SUBJECTIVE: Patient was transferred to intensive care unit on 03/30/2019 and was started on phenobarbital. The patient remains somnolent. The patient continues to have seizures. The patient was started on NGT feedings. OBJECTIVE: Physical Exam General: Adequately build 33 year-old male lying in bed in no apparent distress. HEENT: Normocephalic. Surgical scar on the head. Eyes: Anicteric sclerae, conjunctivae clear. ENT: Nasal septum midline, oral mucosa is dry. Neck supple, no JVD noticed. Respiratory: Bilaterally clear breath sounds. No use of accessory muscles of respiration. No adventitious breath sounds. Cardiovascular: S1, S2 heard. Regular rate and rhythm. Abdomen: Soft, nontender, and nondistended. Bowel sounds positive in all 4 quadrants. Genitourinary: Deferred. Extremities: No cyanosis, no clubbing, no edema. Peripheral pulses palpable. Neurologic: Patient is somnolent. Skin: Normal skin turgor. No skin rashes. Labs & Vitals per chart ASSESSMENT & PLAN 33-year-old male with history of meningioma status post resection with underlying refractory seizure disorder who presented to the ER for evaluation of multiple seizures and was admitted to inpatient setting. 1. Seizure disorder. -Being followed by neurology. -Continue phenobarbital and Dilantin -PRN lorazepam for breakthrough seizures. -Seizure precautions. 2. History of brain tumor, status post resection. -Brain MRI results noted. 3. Positive urinalysis. -Started on ABX on . -Urine culture showing Gram negative rods with a colony count of >100,000 CFU/ml. -Await final cultures. 4. Fluids, electrolytes, and nutrition. -NGT feeds. 5. DVT prophylaxis. -Bilateral SCDs. 6. Plan. -Continue anticonvulsants. -Continue close monitoring of airway. -The patient may need to be transferred to a higher level of care where he can have continuous electroencephalography monitoring. Case management order was put in on 04/02/2019. The patient was seen in collaboration with Dr. Kowalski. Critical care time: 35 minutes. Result Diagram: 04/03/19 0507 04/03/19 0507 Results 24hrs Laboratory Tests Test 04/02/19 10:15 04/02/19 12:00 04/03/19 05:07 04/03/19 07:30 Phenytoin (Dilantin) 16.9 14.6 Level Urine Color YELLOW Urine Clarity CLOUDY A Urine pH 7.0 Urine Specific 1.020 [place] Urine Ketones NEGATIVE Urine Nitrite NEGATIVE Urine Bilirubin NEGATIVE Urine Urobilinogen 2+ H Urine Leukocyte 2+ H Esterase Urine Microscopic 114 H RBC Urine Microscopic 124 H WBC Urine Bacteria FEW A Urine Hemoglobin 2+ H Urine Glucose 3+ H Urine Total Protein 1+ H White Blood Count 14.9 #H Red Blood Count 5.06 Hemoglobin 14.0 Hematocrit 42.5 Mean Corpuscular 84.0 Volume Mean Corpuscular 27.7 L Hemoglobin Mean Corpuscular 32.9 Hemoglobin Concent Red Cell 11.7 Distribution Width Platelet Count 245 Mean Platelet Volume 9.0 Immature 0.700 H Granulocytes % Neutrophils % 88.9 H Lymphocytes % 5.1 L Monocytes % 5.0 Eosinophils % 0.0 Basophils % 0.3 Nucleated Red Blood 0.0 Cells % Immature 0.110 H Granulocytes # Neutrophils # 13.2 H Lymphocytes # 0.8 Monocytes # 0.8 Eosinophils # 0.0 Basophils # 0.1 Nucleated Red Blood 0.0 Cells # Sodium Level 138 Potassium Level 4.5 Chloride Level 101 Carbon Dioxide Level 28 Anion Gap 9 Blood Urea Nitrogen 10 Creatinine 0.61 Est Glomerular > 60 Filtrat Rate mL/min Glucose Level 157 Calcium Level 9.4 Phosphorus Level 3.2 Magnesium Level 2.1 Exam/Review of Systems Exam Vitals Vital Signs Date Temp Pulse Resp B/P (MAP) Pulse Ox O2 O2 Flow FiO2 Time Delivery Rate 04/03/19 118 18 118/66 95 07:00 (83) 04/03/19 Room Air 06:00 04/03/19 98.5 04:00 Intake and Output 04/02/19 04/02/19 04/03/19 1515:00 23:00 07:00 IntakeIntake Total 920 ml 730 ml 780 ml OutputOutput Total 500 ml 640 ml 750 ml BalanceBalance 420 ml 90 ml 30 ml Results Results 24hrs Laboratory Tests Test 04/02/19 10:15 04/02/19 12:00 04/03/19 05:07 04/03/19 07:30 Phenytoin (Dilantin) 16.9 14.6 Level Urine Color YELLOW Urine Clarity CLOUDY A Urine pH 7.0 Urine Specific 1.020 [place] Urine Ketones NEGATIVE Urine Nitrite NEGATIVE Urine Bilirubin NEGATIVE Urine Urobilinogen 2+ H Urine Leukocyte 2+ H Esterase Urine Microscopic 114 H RBC Urine Microscopic 124 H WBC Urine Bacteria FEW A Urine Hemoglobin 2+ H Urine Glucose 3+ H Urine Total Protein 1+ H White Blood Count 14.9 #H Red Blood Count 5.06 Hemoglobin 14.0 Hematocrit 42.5 Mean Corpuscular 84.0 Volume Mean Corpuscular 27.7 L Hemoglobin Mean Corpuscular 32.9 Hemoglobin Concent Red Cell 11.7 Distribution Width Platelet Count 245 Mean Platelet Volume 9.0 Immature 0.700 H Granulocytes % Neutrophils % 88.9 H Lymphocytes % 5.1 L Monocytes % 5.0 Eosinophils % 0.0 Basophils % 0.3 Nucleated Red Blood 0.0 Cells % Immature 0.110 H Granulocytes # Neutrophils # 13.2 H Lymphocytes # 0.8 Monocytes # 0.8 Eosinophils # 0.0 Basophils # 0.1 Nucleated Red Blood 0.0 Cells # Sodium Level 138 Potassium Level 4.5 Chloride Level 101 Carbon Dioxide Level 28 Anion Gap 9 Blood Urea Nitrogen 10 Creatinine 0.61 Est Glomerular > 60 Filtrat Rate mL/min Glucose Level 157 Calcium Level 9.4 Phosphorus Level 3.2 Magnesium Level 2.1 Medications Medication Current Medications Acetaminophen (Tylenol Liquid) 650 mg Q6H PRN PO PAIN LEVEL 1-3 OR FEVER Last administered on 04/03/19at 04:27; Admin Dose 650 MG; Start 03/21/19 at 05:30 Docusate Sodium (Colace) 100 mg Q12H PRN PO CONSTIPATION; Start 03/21/19 at 05:30 Bisacodyl (Dulcolax) 5 mg DAILY PRN PO CONSTIPATION; Start 03/21/19 at 05:30 Pantoprazole (Protonix Tab) 40 mg DAILY@06 PO Last administered on 04/03/19at 05:29; Admin Dose 40 MG; Start 03/21/19 at 06:00 Lorazepam (Ativan) 1 mg Q10MIN PRN IV SEIZURES Last administered on 04/02/19 03:37; Admin Dose 1 MG; Start 03/28/19 at 11:00 Phenobarbital (Luminal) 65 mg BID IV Last administered on 04/02/19at 21:24; Admin Dose 65 MG; Start 03/31/19 at 09:00 Ceftriaxone Sodium 50 ml @ 100 mls/hr Q24H IVPB Last administered on 04/02/19at 15:10; Admin Dose 100 MLS/HR; Start 04/02/19 at 14:30 Phenytoin (Dilantin) 100 mg Q8 IV Last administered on 04/03/19at 05:29; Admin D ose 100 MG; Start 04/02/19 at 14:30 RALPH GIPSON NP April 03, 2019 09:14
[2019-04-03] MEDS: PHENOBARBITAL 65 MG INJ IV SCH ×2 (09:40→21:14)
--- NOTE | 2019-04-03 11:53 | EN ---
Date/Time of Note Date/Time of Note DATE: 04/03/19 TIME: 11:53 RALPH GIPSON NP April 03, 2019 11:53
--- NOTE | 2019-04-03 12:44 | STROKE ---
Date/Time of Note Date/Time of Note DATE: 04/03/19 TIME: 12:32 Patient Information General Patient location: inpatient Arrival Date Age 33 Gender male Weight 63 kg Clinical Presentation unresponsiveness, left sided weakness POC Glucose Glucose Result Bedside Glucose - 72 Hours Test 03/31/19 21:12 Bedside Glucose 97 mg/dL (70-220) Vital Signs Vital Signs Vital Signs Date Temp Pulse Resp B/P (MAP) Pulse Ox O2 O2 Flow FiO2 Time Delivery Rate 04/03/19 120 08:00 04/03/19 18 118/66 95 07:00 (83) 04/03/19 Room Air 06:00 04/03/19 98.5 04:00 Patient History Past Medical History Seizure Past Surgical History meningioma Current Medications Allergies: Coded Allergies: No Known Allergy (Unverified , 11/11/18) Labs Coagulation Labs: Coagulation Test 04/03/19 11:20 Activated Partial Thromboplast Time 28.0 Sec (23.0-35.0) History & Physical History of Present Illness This is a 33 yo M with history of seizure disorder who is currently inpatient and being treated for intractable seizures. He was admitted on the of this month. In the last few days it appears that he has been deteriorating despite adjustments in his anti-seizure medications (currently on dilantin and phenobarbital). A stroke alert was called today when they noted decrease spontaneous movements over the left side. Onset time is unclear, however nursing staff reports that he had more movement yesterday morning. A recent CTH on 04/03 was negative for acute processes. NIH Stroke Scale NIH Stroke Scale [id number] 4d LOC Questions: Viryk7g LOC Commands: [id number] Best Gaze: Zvehn9r r Arm - Left: Ofibx1v - Right: Mjqet5r Motor Leg - Left: [id number] - Right: [id number] age: Esixr8h l Score: [id number] te/Time Recorded DATE: 04/03/19 TIME: 12:32 Submitted By Elia Dickerson t-PA Imaging Review Imaging Reviewed: Yes Date/Time Imaging Reviewed DATE: 04/03/19 TIME: 12:32 Imaging Findings no acute findings t-PA Administration Recommendation: No Weight 63 kg Recommedation submitted by Elia Dickerson Reason t-PA not Recommended not a stroke t-PA Not Recommended Date/Time 12:25 Recommendations Impression Diagnosis status epilepticus Patient is a 33 yo M with seizure disorder, currently being treated for refractory seizures. A stroke alert was called due to observed decreased spontaneous motor activity over the left. Duration and symptom onset is unclear, but possibly since yesterday morning. CTH was neg for acute processes. On my exam, he was a GCS 6 (1-1-4), withdrawing to noxious stimulation on the right side. TPA was not recommended given unclear duration of symptoms and the leading diagnosis being neurologic deterioration due to worsening seizures. The patient had at least one clinical seizure during my assessment: left gaze deviation with focal motor seizures involving the left leg. Recommendation - Agree with urgent transfer of this patient to a higher level of care for treatment of refractory status epilepticus, where continuous EEG is available. I have given several recommendations to the rn case manager and treating physician - Recommend intubation for airway protection for transport and escalation of anti-seizure medications - After intubation, would start versed 2mg/h - ativan 3mg IV for breakthrough seizures - continue current AEDs for now ELIA DICKERSON MD April 03, 2019 12:43
[2019-04-03] MEDS ORDERED: LIDOCAINE 1% (MPF) 5 ML VIAL SC ONE (13:00)
[2019-04-03] MEDS ORDERED: ASPIRIN 81 MG TAB PO SCH (15:00)
--- NOTE | 2019-04-03 15:05 | CONS ---
Assessment/Plan Assessment/Plan Assessment/Plan (Recall) 33 M c/ reported Hx of meningioma s/p resection c/b refractory epilepsy, who presents for evaluation following multiple breakthrough seizures.. The clinical picture is consistent w/ convulsive status epilepticus.. He endorsed medication noncompliance at home, the likely underlying precipitant.. Now he may have a hospital acquired infection, which could certainly potentiate refractory seizures... MRI brain shows stable post-op changes Initial UA neg; CXR neg On 04/03, the pt was noted to be unable to move his L side. Now s/p code stroke Repeat HCT was unrevealing. P: Agree with transfer to higher level of care MRI brain without contrast for further characterization in the interim Start ASA/Lipitor pending the above Recommend intubation with initiation of propofol gtt for continued seizure activity Cont maintenance phb 65mg BID for now Cont maintenance Dilantin for now, to be titrated to goal level ~15-20 Hold Keppra/Trileptal indefinitely, due to inefficacy Ativan iv prn prolonged seizure > 5min or for cluster episodes (>2 in 24h) Infectious workup and other medical management per primary Will follow clinically Consultation Date/Type/Reason Admit Date/Time March 21, 2019 at 05:18 Type of Consult Neurology Requesting Provider: PRATIMA ROQUE Date/Time of Note DATE: 04/03/19 TIME: 15:00 24 HR Interval Summary Free Text/Dictation Continues critical care. Pt reportedly continuing to seize. S/p code stroke as pt was found to be unable to move his L arm. Exam/Review of Systems Exam Vitals Vital Signs Date Temp Pulse Resp B/P (MAP) Pulse Ox O2 O2 Flow FiO2 Time Delivery Rate 04/03/19 116 12:00 04/03/19 18 118/66 95 07:00 (83) 04/03/19 Room Air 06:00 04/03/19 98.5 04:00 Intake and Output 04/02/19 04/02/19 04/03/19 1515:00 23:00 07:00 IntakeIntake Total 920 ml 730 ml 780 ml OutputOutput Total 500 ml 640 ml 750 ml BalanceBalance 420 ml 90 ml 30 ml Exam PE: Gen Appearance: No Apparent Distress HEENT: Normocephalic Cardiovascular: Regular rate Abdomen: Soft Extremities: Dry NE: The patient was obtunded and nonverbal. Opens eyes to noxious stimuli. Cranial nerve examination was limited by mental status. Pupils were equal and reactive to light. There was no afferent pupillary defect. Funduscopic examination was limited. Face was grossly symmetric, w/ present corneal and cough reflexes. Tone was normal. Muscle bulk was normal. I did not see fasciculations. The patient did not withdraw his LUE to noxious stimuli. Withdrew his RUE weakly, strongly withdrew his BLE (L<R). Coordination and gait testing was limited by mental status. Arm and leg reflexes were within normal limits and symmetric. Harris's sign was absent. Plantar responses were flexor. Results Result Diagram: 04/03/19 1119 04/03/19 0507 Results 24hrs Laboratory Tests Test 04/03/19 05:07 04/03/19 07:30 04/03/19 11:19 04/03/19 11:20 White Blood Count 14.9 #H 15.7 H Red Blood Count 5.06 4.69 L Hemoglobin 14.0 13.0 L Hematocrit 42.5 39.3 L Mean Corpuscular 84.0 83.8 Volume Mean Corpuscular 27.7 L 27.7 L Hemoglobin Mean Corpuscular 32.9 33.1 Hemoglobin Concent Red Cell 11.7 11.8 Distribution Width Platelet Count 245 248 Mean Platelet Volume 9.0 9.6 Immature 0.700 H 0.800 H Granulocytes % Neutrophils % 88.9 H 85.5 H Lymphocytes % 5.1 L 6.4 L Monocytes % 5.0 6.8 Eosinophils % 0.0 0.1 Basophils % 0.3 0.4 Nucleated Red Blood 0.0 0.0 Cells % Immature 0.110 H 0.120 H Granulocytes # Neutrophils # 13.2 H 13.5 H Lymphocytes # 0.8 1.0 Monocytes # 0.8 1.1 H Eosinophils # 0.0 0.0 Basophils # 0.1 0.1 Nucleated Red Blood 0.0 0.0 Cells # Sodium Level 138 Potassium Level 4.5 Chloride Level 101 Carbon Dioxide Level 28 Anion Gap 9 Blood Urea Nitrogen 10 Creatinine 0.61 Est Glomerular > 60 Filtrat Rate mL/min Glucose Level 157 Calcium Level 9.4 Phosphorus Level 3.2 Magnesium Level 2.1 Phenytoin (Dilantin) 14.6 Level Activated 28.0 Partial Thromboplast Time Troponin I 0.018 Triglycerides Level 24 Cholesterol Level 82 L LDL Cholesterol, 34 Calculated HDL Cholesterol 43 Cholesterol/HDL 1.9 Ratio Medications Medication Current Medications Acetaminophen (Tylenol Liquid) 650 mg Q6H PRN PO PAIN LEVEL 1-3 OR FEVER Last administered on 04/03/19 04:27; Admin Dose 650 MG; Start 03/21/19 at 05:30 Docusate Sodium (Colace) 100 mg Q12H PRN PO CONSTIPATION; Start 03/21/19 at 05:30 Bisacodyl (Dulcolax) 5 mg DAILY PRN PO CONSTIPATION; Start 03/21/19 at 05:30 Pantoprazole (Protonix Tab) 40 mg DAILY@06 PO Last administered on 04/03/19 05:29; Admin Dose 40 MG; Start 03/21/19 at 06:00 Lorazepam (Ativan) 1 mg Q10MIN PRN IV SEIZURES Last administered on 04/02/19 03:37; Admin Dose 1 MG; Start 03/28/19 at 11:00 Phenobarbital (Luminal) 65 mg BID IV Last administered on 04/03/19at 09:40; Admin Dose 65 MG; Start 03/31/19 at 09:00 Ceftriaxone Sodium 50 ml @ 100 mls/hr Q24H IVPB Last administered on 04/02/19at 15:10; Admin Dose 100 MLS/HR; Start 04/02/19 at 14:30 Phenytoin (Dilantin) 100 mg Q8 IV Last administered on 04/03/19 05:29; Admin Dose 100 MG; Start 04/02/19 at 14:30 ZA VERDUGO NP April 03, 2019 15:05
--- NOTE | 2019-04-03 15:05 | DS ---
Date/Time of Note Date/Time of Note DATE: 04/03/19 TIME: 15:03 Discharge Summary Admission/Discharge Info Admit Date/Time March 21, 2019 at 05:18 Discharge Date/Time Discharge Diagnosis 1. Status epilepticus. 2. History of brain tumor, status post resection. 3. Urinary tract infection. Patient Condition: Stable Consults 1. Tisha Calvert MD, Neurology. 2. Elia Dickerson MD, Tele-neurology. 3. Ralph Cantu MD, Anthropologist. Procedures Brain MRI IMPRESSION: Re-demonstration of extensive postsurgical changes as well as some right frontal lobe gyral edema and restricted diffusion with overlying meningeal enhancement. The changes may be related to residual tumor. At least some of the meningeal enh ancement may be postsurgical. Brain CT IMPRESSION: NO ACUTE INTRACRANIAL BLEED NOTED Hx of Present Illness This is a 33-year-old male with history of meningioma status post resection with underlying refractory seizure disorder who presented to the ER for evaluation of multiple seizures and was admitted to inpatient setting. Hospital Course The patient was admitted to inpatient intensive care unit. The patient was maintained on Dilantin, Keppra, Trileptal. The patient was maintained on PRN lorazepam for breakthrough seizures. Patient underwent a brain MRI on 03/25/2019 that was showing re-demonstration of extensive postsurgical changes as well as some right frontal left lateral edema and restricted diffusion with the overlying meningeal enhancement. The patient's seizures were initially controlled and the patient was transferred to telemetry floor. However, later during the patient's hospital stay in telemetry floor he started having multiple episodes of seizure. The patient's valproic acid dosing was adjusted to obtain optimal serum level. Despite optimal adjustment of these medications, he continued to have seizures. Therefore, the patient was moved to intensive care unit back on 03/30/2019 and the patient was started on phenobarbital and Dilantin. Status post readmission to intensive care unit, the patient remained more or less somnolent because of the use of phenobarbital. The patient could not take any oral intake. Therefore, the patient was started on NGT feedings. Despite phenobarbital and Dilantin and close monitoring in intensive care unit, the patient continued to have multiple episodes of seizures. Therefore, a clinical decision was made to transfer this patient to a tertiary care facility/neuro critical care unit where he can have 24-hour electroencephalography and other treatment modalities. Case management order was put in for a transfer to tertiary care facility on 04/02/2019. Meanwhile, on 04/03/2019 a code stroke was activated because of the patient's flaccidity of the left side. The patient underwent a stat brain CT scan that was negative for any acute brain bleed. The patient was evaluated by telemetry neurologist who recommended transferring him to a tertiary care facility. The tele-neurologist was kind enough to accept this patient and knowing his insurance status and other background. The patient has a bed available at [facility] in intensive care unit and will accept this patient. The patient's family was informed about the transfer of the patient to this facility. Meanwhile, the patient was also noticed to have urinary tract infection on 04/02/2019. The patient was started on appropriate antimicrobial therapy. It is highly unlikely that the underlying urinary tract infection is also contributing towards the patient's underlying status epilepticus. Prior to transporting the patient to the other hospital he was intubated and the patient will be sedated using Versed 2 mg/h as per the recommendations of the telemetry neurologist. The patient also had a central line placed prior to transfer. At this time I like to thank all the consultants for seeing the patient, doing the necessary procedures,and providing clinical recommendations. The patient was seen in collaboration with Dr. Kowalski. [place] Meds Active Scripts Clarithromycin* (Clarithromycin*) 500 Mg Tablet, 500 MG PO BID for 10 Days, TAB Prov:KAREN GOMES MD 11/18/18 Oxcarbazepine* (Oxcarbazepine*) 300 Mg Tablet, 300 MG PO BID for 30 Days, TAB Prov:KAREN GOMES MD 11/18/18 Levetiracetam* (Keppra*) 750 Mg Tablet, 1500 MG PO BID, #120 TAB Keppra 750 mg tabletX 2 tablet (1500 mg PER DOSE) twice a day. Prov:KAREN GOMES MD 11/18/18 Follow-up Plan The patient being transferred to neuro intensive care unit at [facility] in [place]. Primary Care Provider Care Physician No Primary Time spent on discharge: > 30 minutes Pending Labs Laboratory Tests Test 04/03/19 05:07 04/03/19 07:30 04/03/19 11:19 04/03/19 11:20 White Blood 14.9 15.7 Count 10^3/ul (4.8-10 10^3/ul (4.8-1 .8) 0.8) Red Blood 5.06 4.69 Count 10^6/ul (4.70-6 10^6/ul (4.70- .10) 6.10) Hemoglobin 14.0 13.0 g/dl (14.0-18.0 g/dl (14.0-18. ) 0) Hematocrit 42.5 39.3 % (42.0-52.0) % (42.0-52.0) Mean 84.0 83.8 Corpuscular fl (82.0-101.0) fl (82.0-101.0 Volume ) Mean 27.7 27.7 Corpuscular pg (29.0-33.0) pg (29.0-33.0) Hemoglobin Mean 32.9 33.1 Corpuscular g/dl (32.0-37.0 g/dl (32.0-37. Hemoglobin Conc ) 0) ent Red Cell 11.7 11.8 Distribution % (11.5-14.5) % (11.5-14.5) Width Platelet Count 245 248 10^3/UL (140-41 10^3/UL (140-4 5) 15) Mean Platelet 9.0 9.6 Volume fl (7.4-10.4) fl (7.4-10.4) Immature 0.700 0.800 Granulocytes % % (0.001-0.429) % (0.001-0.429 ) Neutrophils % 88.9 85.5 % (39.0-77.0) % (39.0-77.0) Lymphocytes % 5.1 6.4 % (15.0-51.0) % (15.0-51.0) Monocytes % 5.0 6.8 % (0.0-11.0) % (0.0-11.0) Eosinophils % 0.0 % (0.0-7.0) 0.1 % (0.0-7.0) Basophils % 0.3 % (0.0-2.0) 0.4 % (0.0-2.0) Nucleated Red 0.0 0.0 Blood Cells % /100WBC (0.0-0. /100WBC (0.0-0 0) .0) Immature 0.110 0.120 Granulocytes # 10^3/ul (0.0-0. 10^3/ul (0.0-0 031) .031) Neutrophils # 13.2 13.5 10^3/ul (1.6-7. 10^3/ul (1.6-7 5) .5) Lymphocytes # 0.8 1.0 10^3/ul (0.8-2. 10^3/ul (0.8-2 9) .9) Monocytes # 0.8 1.1 10^3/ul (0.3-0. 10^3/ul (0.3-0 9) .9) Eosinophils # 0.0 0.0 10^3/ul (0.0-0. 10^3/ul (0.0-0 5) .5) Basophils # 0.1 0.1 10^3/ul (0.0-0. 10^3/ul (0.0-0 1) .1) Nucleated Red 0.0 0.0 Blood Cells # 10^3/ul (0.0-0. 10^3/ul (0.0-0 0) .0) Sodium Level 138 mmol/L (135-144 ) Potassium 4.5 Level mmol/L (3.5-5.1 ) Chloride Level 101 mmol/L (97-110) Carbon Dioxide 28 Level mmol/L (21-31) Anion Gap 9 (5-13) Blood Urea 10 mg/dl (7-20) Nitrogen Creatinine 0.61 mg/dl (0.61-1.2 4) Est Glomerular > 60 Filtrat mL/min (>60) Rate mL/min Glucose Level 157 mg/dl (70-220) Calcium Level 9.4 mg/dl (8.4-10.2 ) Phosphorus 3.2 Level mg/dl (2.5-4.9) Magnesium 2.1 Level mg/dl (1.7-2.5) Phenytoin 14.6 (Dilantin) ug/ml (10.0-20 Level .0) Activated 28.0 Partial Thrombo Sec (23.0-35.0 plast Time ) Troponin I 0.018 ng/ml (0.000-0 .120) Triglycerides 24 Level mg/dl (0-149) Cholesterol 82 Level mg/dl (100-200 ) LDL 34 mg/dl Cholesterol, Calculated HDL 43 Cholesterol mg/dl (28-63) Cholesterol/HDL 1.9 RATIO Ratio RALPH GIPSON NP April 03, 2019 15:05
[2019-04-03] MEDS ORDERED: PROPOFOL 100 ML ONE (15:16)
[2019-04-03] MEDS ORDERED: MIDAZOLAM (DRIP) 50 mg/50 mL 50 ML IV SCH (16:00)
[2019-04-03] MEDS: PROPOFOL 100 ML IV SCH ×2 (17:14→21:37)
[2019-04-03] MEDS: CEFTRIAXONE 1 GM/50 ML (PMX) 50 ML IVPB SCH (17:20)
--- NOTE | 2019-04-03 18:22 | CONS ---
DATE OF ADMISSION: 03/21/2019 DATE OF CONSULTATION: REASON FOR CONSULT: Respiratory failure. Thank you, , for this consultation. HISTORY OF PRESENT ILLNESS: This is an unfortunate 33-year-old gentleman with a recent history of me ningioma status post resection, complicated by postoperative intractable seizures. He has had stay i n our intensive care unit, which showed significant ongoing seizures. Today, had focal weakness requ iring initiation of the code stroke. Case was discussed with neurology at [facility], who kindly accepted continuing care for this patient who requires continuous EEG monitoring an d close to management of his intractable seizures. Initial CT of the head demonstrated no significan t new findings. The patient was emergently intubated for airway protection. Central line was placed prior to transfer to [facility]. PAST MEDICAL HISTORY: As above. MEDICATIONS: Per chart. ALLERGIES: NONE. SOCIAL HISTORY: He is a nonsmoker, no alcohol, no history of drug use. FAMILY HISTORY: Noncontributory. REVIEW OF SYSTEMS: A 12-point review of systems negative other than mentioned above. PHYSICAL EXAMINATION: GENERAL: Well-nourished, well-developed gentleman, now orally intubated, on mechanical ventilation. VITAL SIGNS: Currently afebrile, pulse is 113, blood pressure 116/70, O2 saturation 97%, FIO2 of 50% . NECK: Supple. No JVD or lymphadenopathy. CARDIAC: S1, S2, no added sounds or murmurs. CHEST: Diminished air entry bilaterally. ABDOMEN: Soft and nontender. No guarding or rebound. EXTREMITIES: No cyanosis, clubbing or edema. NEUROLOGIC: Currently unable to assess. LABORATORIES: White count 15.7, hemoglobin 13, platelets of 248. Chemistry within normal limits. I NR pending. Arterial blood gas post-intubation is pending. Urinalysis showed gram-negative rods. C ultures demonstrated Proteus mirabilis. He is currently on ceftriaxone. DIAGNOSTIC DATA: Post-intubation chest x-ray shows no significant infiltrates or effusions. IMPRESSION: Recent resection of meningioma complicated by intractable seizures, now intubated for ai rway protection in addition to gram-negative urinary tract infection. PLAN: The patient will require: 1. Continue mechanical ventilation for airway management. 2. Sedation. Continue current antiepileptics. 3. Transfer to tertiary care center for continuous EEG monitoring. 4. Initiation of tube feeding. 5. DVT and GI prophylaxis. 6. Continue Rocephin for Proteus UTI. Dictated By: DANIELLA GIORDANO/KYA Conf#: [id number] DID#: [id number]
--- NOTE | 2019-04-03 18:24 | SP ---
DATE OF PROCEDURE: PROCEDURE: Central line placement. INDICATION: For IV access. DESCRIPTION OF PROCEDURE: The patient was in supine position and the right internal jugular site was cleaned and prepped in usual sterile manner. Using ultrasound guidance, internal jugular vein was l ocated with a large bore needle, guidewire was passed through without resistance. Using Seldinger te chnique for dilatation, triple lumen catheter passed over guidewire. The patient had good flow throu gh all 3 ports. Post-central line chest x-ray has been requested. Dictated By: DANIELLA GIORDANO/KYA Conf#: [id number] DID#: [id number]
--- NOTE | 2019-04-03 18:28 | SP ---
DATE OF PROCEDURE: PROCEDURE: Intubation. INDICATION: For airway protection. DESCRIPTION OF PROCEDURE: The patient was placed in supine position. Timeout was called prior to pr ocedure. The patient was sedated using 10 mg of etomidate and 100 mg of succinylcholine. Using Ngoc ntosh blade 4 laryngoscope, vocal cords were visualized. A size 7.5 endotracheal tube was passed thr ough the cords without resistance. This was secured at 25 cm to the lip. Post-intubation chest x-ra y was requested. CO2 capnometer was immediately positive and the patient had equal breath sounds martha aterally. He tolerated the procedure well without complication. Dictated By: DANIELLA GIORDANO/KYA Conf#: [id number] DID#: [id number]
[2019-04-04] VITALS: BP 119/79; PULSE 108; PULSE 109; PULSE 98; RESP 16
[2019-04-04 01:00] VITALS: BP 113/81; PULSE 110; RESP 16
[2019-04-04 01:15] VITALS: BP 117/76; PULSE 109; RESP 16
[2019-04-04 01:30] VITALS: BP 118/77; PULSE 110; RESP 16
[2019-04-04 01:41] VITALS: RESP 16
[2019-04-04] MEDS: PROPOFOL 100 ML IV SCH (01:59)
== END 2019-04-04 02:15 | disposition short-term general hospital (02) | DRG 101 ==
LOC: E/R 04:27 → ICU 05:18 → 6WM 03-24 12:30 → ICU 03-30 12:20
PROVIDERS: ADMIT Family Medicine; ATTEND Internal Medicine
PROC: 0BH17EZ Insertion of Endotracheal Airway into Trachea, Via Natural or Artificial Opening (ICD-10-PCS; principal; 2019-04-03)
PROC: 05HM33Z Insertion of Infusion Device into Right Internal Jugular Vein, Percutaneous Approach (ICD-10-PCS; 2019-04-03)
PROC: 5A1935Z Respiratory Ventilation, Less than 24 Consecutive Hours (ICD-10-PCS; 2019-04-03)
DX: G40.909 Epilepsy, unspecified, not intractable, without status epilepticus (principal); N39.0 Urinary tract infection, site not specified; Z86.011 Personal history of benign neoplasm of the brain; R53.83 Other fatigue
CPT/HCPCS: 31500; 36600; 70450; 70553; 71045; 80048; 80053; 80061; 80156; 80164; 80177; 80184; 80185; 80307; 81001; 81003; 82803; 82962; 83036; 83735; 84100; 84146; 84443; 84484; 85025; 85730; 87081; 87086; 92526; 92610; 93005; 94002; 94003; 94770; 95819; 96374; 96375; 97161; J0696; J1165; J1953; J2060; J2250; J2560; J7030; J7042